=== PATIENT | male | born 1940 | race Caucasian/White ===

== ENCOUNTER → 2016-08-25 | Outpatient (CLI) | payer MEDICARE, OTHER ==
[2016-08-25 07:17] LABS: CH 30.4; CHCM 33.5; HDW 2.56; HGB 15.3 gm/dL (13.0-17.5); MCH 30.5 pg (25.0-35.0); MCHC 33.3 g/dL (31.0-37.0); MCV 91.3 fL (80.0-100.0); Mean Platelet Volume 7.7; RBC 5.03 m/uL (4.30-5.90); RDW 13.5 % (11.5-15.5); WBC 7.5 k/uL (3.8-10.6)
[2016-08-25 07:32] LABS: Anion Gap 13 mmol/L; Blood Urea Nitrogen 18 mg/dL (9-20); Calcium 9.4 mg/dL (8.4-10.2); Carbon Dioxide 27 mmol/L (22-30); Chloride 103 mmol/L (98-107); Cholesterol 152 mg/dL (<200); Glucose 102 mg/dL (74-99); HDL Cholesterol 55 mg/dL (40-60); Non-African American GFR(MDRD) >60 (>60 ml/min/1.73 sqM); Potassium 4.4 mmol/L (3.5-5.1); Sodium 143 mmol/L (137-145); Triglycerides 124 mg/dL (<150)
[2016-08-25 08:40] LABS: Appearance,Urine Clear (Clear); Bilirubin,Urine Negative (Negative); Glucose,Urine (UA) Negative (Negative); Ketones,Urine Negative (Negative); Leukocyte Esterase,Urine Negative (Negative); Nitrite,Urine Negative (Negative); Protein,Urine Negative (Negative); Specific Gravity,Urine 1.011 (1.001-1.035); UA Billing (MACRO vs. MICRO) CHEM; Urobilinogen,Urine <2.0 mg/dL (<2.0)
== END | disposition home or self-care (01) ==
LOC: LABWHC1 06:39
PROVIDERS: ATTEND Internal Medicine
DX: Z00.01 Encounter for general adult medical examination with abnormal findings (principal); I11.9 Hypertensive heart disease without heart failure; E78.2 Mixed hyperlipidemia; N40.1 Benign prostatic hyperplasia with lower urinary tract symptoms; R35.0 Frequency of micturition
CPT/HCPCS: 36415; 80048; 80061; 81003; 85027

== ENCOUNTER → 2017-05-16 | Outpatient (CLI) | payer MEDICARE, OTHER ==
[2017-05-16 10:47] LABS: CH 30.7; HCT 43.4 % (39.0-53.0); HDW 2.56; HGB 14.5 gm/dL (13.0-17.5); MCH 31.3 pg (25.0-35.0); MCHC 33.4 g/dL (31.0-37.0); MCV 93.6 fL (80.0-100.0); Mean Platelet Volume 7.2; RBC 4.63 m/uL (4.30-5.90); RDW 13.6 % (11.5-15.5); WBC 8.8 k/uL (3.8-10.6)
[2017-05-16 11:10] LABS: Calcium 9.3 mg/dL (8.4-10.2); Potassium 4.6 mmol/L (3.5-5.1); Total Bilirubin 0.7 mg/dL (0.2-1.3)
[2017-05-16 11:13] LABS: Appearance,Urine Clear (Clear); Bacteria,Urine Rare /hpf; Bilirubin,Urine Negative (Negative); Glucose,Urine (UA) Negative (Negative); Ketones,Urine Negative (Negative); Leukocyte Esterase,Urine Negative (Negative); Mucus,Urine Rare /hpf; Nitrite,Urine Negative (Negative); Particle Count 486; Protein,Urine Trace (Negative); RBC,Urine 11 /hpf (0-5); Specific Gravity,Urine 1.016 (1.001-1.035); UA Billing (MACRO vs. MICRO) MICRO; Urobilinogen,Urine <2.0 mg/dL (<2.0)
--- NOTE | 2017-05-16 11:24 | XR ---
EXAMINATION TYPE: XR lumbosacral spine min 4V DATE OF EXAM: 05/16/2017 CLINICAL HISTORY: pain COMPARISON: NONE TECHNIQUE: Frontal, lateral, and oblique images of the lumbar spine are obtained. FINDINGS: There are 5 lumbar type vertebral bodies identified. The lumbar spine shows satisfactory alignment without evidence of acute fracture or dislocation. Vertebral body heights are within normal limits. Sever multi level degenerative disc disease and spondylosis. The overlying soft tissue boris ears unremarkable. IMPRESSION: No acute fracture or dislocation is seen in the lumbar spine.ICD 10 NO FRACTURE, INITIAL EVALUATION
[2017-05-16 11:37] LABS: Prostate Specific Antigen 0.82 ng/mL (0.00-4.00)
== END | disposition home or self-care (01) ==
LOC: LABWHC1 10:09
PROVIDERS: ATTEND Internal Medicine
DX: M54.5 Low back pain (principal); N40.1 Benign prostatic hyperplasia with lower urinary tract symptoms; I11.9 Hypertensive heart disease without heart failure; E78.2 Mixed hyperlipidemia
CPT/HCPCS: 36415; 72110; 80053; 81001; 84153; 85027

== ENCOUNTER 2017-05-17 11:06 | Emergency (ER) | payer MEDICARE, OTHER ==
[2017-05-17] MEDS ORDERED: ONDANSETRON 4 MG/2 ML VIAL IVP STA ×2 (11:33→12:41)
[2017-05-17] MEDS ORDERED: SODIUM CHLORIDE 0.9% 500 ML IV STA (11:33)
[2017-05-17] MEDS ORDERED: HYDROmorphone 1 MG/ML 1 ML SYRINGE IVP STA ×2 (11:34→12:41)
[2017-05-17 12:07] LABS: Basophils % (A) 0 %; CHCM 33.8; Eosinophils # (A) 0.1 k/uL (0-0.7); Eosinophils % (A) 1 %; HCT 43.2 % (39.0-53.0); HDW 2.54; HGB 14.8 gm/dL (13.0-17.5); Luc # (Auto) 0.28; Luc % (Auto) 2; Lymphocytes # (A) 1.1 k/uL (1.0-4.8); Lymphocytes % (A) 9 %; MCH 31.5 pg (25.0-35.0); MCHC 34.2 g/dL (31.0-37.0); Mean Platelet Volume 7.3; Monocytes # (A) 0.8 k/uL (0-1.0); Monocytes % (A) 7 %; Neutrophils # (A) 9.4 k/uL (1.3-7.7); Neutrophils % (A) 80 %; RDW 13.4 % (11.5-15.5); WBC 11.8 k/uL (3.8-10.6); WBC (Perox) 12.06
[2017-05-17 12:15] LABS: ALT 29 U/L (21-72); AST 25 U/L (17-59); Alkaline Phosphatase 97 U/L (38-126); Anion Gap 13 mmol/L; Blood Urea Nitrogen 21 mg/dL (9-20); Calcium 9.5 mg/dL (8.4-10.2); Carbon Dioxide 23 mmol/L (22-30); Chloride 101 mmol/L (98-107); Glucose 98 mg/dL (74-99); Non-African American GFR(MDRD) 52 (>60 ml/min/1.73 sqM); Potassium 4.4 mmol/L (3.5-5.1); Sodium 137 mmol/L (137-145); Total Bilirubin 0.7 mg/dL (0.2-1.3); Total Protein 7.2 g/dL (6.3-8.2)
--- NOTE | 2017-05-17 12:23 | XR ---
EXAMINATION TYPE: XR KUB DATE OF EXAM: 05/17/2017 12:18 PM CLINICAL HISTORY: History of kidney stones with left-sided pain. TECHNIQUE: Two Upright KUB images of the abdomen are obtained. COMPARISON: Abdominal x-ray March 22, 2013. FINDINGS: Scattered gas is seen in non-distended small bowel loops. Gas and fecal material is seen in non-distended colon. Some vascular calcification in the pelvis extending into both groins is redemon strated. No pneumoperitoneum is identified. There is slight scoliotic curvature with multilevel spurr ing throughout the thoracolumbar spine. There is multilevel disc space narrowing and vacuum disc phen omenon in the lumbar spine redemonstrated. IMPRESSION: No definite nephrolithiasis. No significant change from prior.
[2017-05-17 12:36] LABS: Appearance,Urine Clear (Clear); Bilirubin,Urine Negative (Negative); Glucose,Urine (UA) Negative (Negative); Ketones,Urine Negative (Negative); Leukocyte Esterase,Urine Negative (Negative); Nitrite,Urine Negative (Negative); PH, Urine 6.5 (5.0-8.0); Particle Count 127; Protein,Urine Negative (Negative); RBC,Urine <1 /hpf (0-5); Specific Gravity,Urine 1.004 (1.001-1.035); UA Billing (MACRO vs. MICRO) MICRO; Urobilinogen,Urine <2.0 mg/dL (<2.0); WBC,Urine <1 /hpf (0-5)
--- NOTE | 2017-05-17 12:49 | ED ---
General Adult HPI - General Chief complaint: Abdominal Pain Stated complaint: Poss Kidney Stone, Abd Pain Time Seen by Provider: 05/17/17 11:17 Source: patient, RN notes reviewed Mode of arrival: ambulatory Limitations: no limitations - History of Present Illness Initial comments: This is a 69-year-old male who presents to the emergency Department today with chief complaint of left-sided abdominal pain. He was seen yesterday by his primary care provider who ran basic labs and lumbar x-ray. Renal studies were slightly elevated with BUN of 21 and Cr of 1.4, but all other studies were unremarkable. He was sent home with recommendation to take Tylenol as needed for pain and dexamethasone. Patient states he woke up this morning and felt well for a little while, then the pain returned. He states the pain is in his left flank with radiation to left thigh. He states the pain is intermittent, increasing in intensity every few minutes. He reports this pain feels the same as his previous history of kidney stone. He reports the pain gets so severe that he feels nauseous.Denies fever, chills, chest pain, shortness of breath, vomiting, dysuria, hematuria, numbess, tingling, headache or vision changes. - Related Data Home Medications Medication Instructions Recorded Confirmed Aspirin 81 mg PO DAILY 02/11/14 05/17/17 Atorvastatin Calcium [Lipitor] 10 mg PO MOWEFR 02/11/14 05/17/17 Esomeprazole Magnesium [NexIUM] 40 mg PO HS 02/11/14 05/17/17 Fosinopril [Monopril] 20 mg PO HS 02/11/14 05/17/17 Latanoprost Ophth [Xalatan 0.005%] 1 drop BOTH EYES HS 02/11/14 05/17/17 Sertraline [Zoloft] 150 mg PO HS 02/11/14 05/17/17 Tamsulosin HCl [Flomax] 0.4 mg PO HS 02/11/14 05/17/17 amLODIPine BESYLATE [Norvasc] 5 mg PO HS 02/11/14 05/17/17 Acetaminophen Tab [Tylenol Tab] 650 mg PO BID PRN 05/17/17 05/17/17 Artificial Tears-Hypromellose 1 drops BOTH EYES QID 05/17/17 05/17/17 [Artificial Tear Drops] Dexamethasone See Taper PO DIRECTED 05/17/17 05/17/17 Previous Rx's Medication Instructions Recorded Hydrocodone/Acetaminophen [Ridgeway 1 tab PO Q4HR PRN #15 tab 05/17/17 5-325] Ketorolac [Toradol] 10 mg PO Q6HR #10 tab 05/17/17 Allergies Allergy/AdvReac Type Severity Reaction Status Date / Time No Known Allergies Allergy Verified 05/17/17 11:21 Review of Systems ROS Statement: Those systems with pertinent positive or pertinent negative responses have been documented in the HPI. ROS Other: All systems not noted in ROS Statement are negative. Past Medical History Past Medical History: Cancer, COPD, GERD/Reflux, Hearing Disorder / Deafness, Hyperlipidemia, Hypertension, Neurologic Disorder, Osteoarthritis (OA), Prostate Disorder Additional Past Medical History / Comment(s): PROSATE CA (2008) RADIATION [place]. HX OF TIA. 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 URINARY CALCULI. History of Any Multi-Drug Resistant Organisms: None Reported Past Surgical History: Adenoidectomy, Back Surgery, Joint Replacement, Orthopedic Surgery, Tonsillectomy Additional Past Surgical History / Comment(s): LITHOTRIPSY. BACK OR (1987 & 1997 ). BILATERAL REVERSE SOCKET OF SHOULDERS. Past Anesthesia/Blood Transfusion Reactions: No Reported Reaction Past Psychological History: Depression Smoking Status: Former smoker General Exam - General Exam Comments Initial Comments: General: Awake and alert, well-developed; appears to be uncomfortable and in pain. and daughter at bedside. HEENT: Head atraumatic, normocephalic. Pupils are equal, round and reactive to light. Extraocular movements intact. Neck: Supple. Normal ROM. No JVD. Trachea midline. Cardiovascular: Regular rate and rhythm. No murmurs, rubs or gallops. Pectus excavatum noted. Respiratory: Lungs clear to auscultation bilaterally. No wheezes, rales or rhonchi. Normal respiratory efffort with no use of accessory muscles. Abdomen: Soft, non-tender, non-distended. No rigidity, rebound or guarding. Normal bowel sounds in all 4 quadrants. Left-sided CVA tenderness. Musculoskeletal: Normal ROM, no tenderness. Pulses 2+ equal and palpable bilaterally. Skin: [place], warm and dry without rashes or lesions. Neurological: Alert and oriented x3. CN II-XII grossly intact. Speech is fluent and answers are appropriate. No focal neuro deficits. Psychiatric: Normal mood and affect. No overt signs of depression or anxiety noted. Limitations: no limitations Course Vital Signs 05/17/17 05/17/17 05/17/17 11:09 13:00 14:00 Temperature 97.3 F L Pulse Rate 72 65 63 Respiratory 18 16 18 Rate Blood Pressure 159/95 172/84 140/76 O2 Sat by Pulse 98 94 L 95 Oximetry - Reevaluation(s) Reevaluation #1: Patient complains that abdominal pain and nausea are returning and that the first dose of Dilaudid and Zofran were helpful. Will give additional doses at this time. KUB results show no nephrolithiasis. Awaiting CT scan and UA results. 05/17/17 12:49 Medical Decision Making - Medical Decision Making This is a 77-year-old male presented with left-sided abdominal pain. This case was discussed with attending physician, Dr. Sullivan. CT scan showed a 6 mm left mid ureter obstructing calculus with [id number] hydronephrosis. Patient will be discharged home with recommendation to follow up with urologist. Ridgeway and Toradol prescribed for pain management. Flomax was also going to be prescribed however patient states he has prescription at home. - Lab Data Result diagrams: 05/17/17 11:52 05/17/17 11:52 Lab Results 05/17/17 05/17/17 05/17/17 Range/Units 11:52 11:52 12:20 WBC 11.8 H (3.8-10.6) k/uL RBC 4.70 (4.30-5.90) m/uL Hgb 14.8 (13.0-17.5) gm/dL Hct 43.2 (39.0-53.0) % MCV 92.0 (80.0-100.0) fL MCH 31.5 (25.0-35.0) pg MCHC 34.2 (31.0-37.0) g/dL RDW 13.4 (11.5-15.5) % Plt Count 188 (150-450) k/uL Neutrophils % 80 % Lymphocytes % 9 % Monocytes % 7 % Eosinophils % 1 % Basophils % 0 % Neutrophils # 9.4 H (1.3-7.7) k/uL Lymphocytes # 1.1 (1.0-4.8) k/uL Monocytes # 0.8 (0-1.0) k/uL Eosinophils # 0.1 (0-0.7) k/uL Basophils # 0.0 (0-0.2) k/uL Sodium 137 (137-145) mmol/L Potassium 4.4 (3.5-5.1) mmol/L Chloride 101 (98-107) mmol/L Carbon Dioxide 23 (22-30) mmol/L Anion Gap 13 mmol/L BUN 21 H (9-20) mg/dL Creatinine 1.34 H (0.66-1.25) mg/dL Est GFR (MDRD) Af Amer >60 (>60 ml/min/1.73 sqM) Est GFR (MDRD) Non-Af 52 (>60 ml/min/1.73 sqM) Glucose 98 (74-99) mg/dL Calcium 9.5 (8.4-10.2) mg/dL Total Bilirubin 0.7 (0.2-1.3) mg/dL AST 25 (17-59) U/L ALT 29 (21-72) U/L Alkaline Phosphatase 97 (38-126) U/L Total Protein 7.2 (6.3-8.2) g/dL Albumin 4.1 (3.5-5.0) g/dL Urine Color Light Yellow Urine Appearance Clear (Clear) Urine pH 6.5 (5.0-8.0) Ur Specific [place] 1.004 (1.001-1.035) Urine Protein Negative (Negative) Urine Glucose (UA) Negative (Negative) Urine Ketones Negative (Negative) Urine Blood Small H (Negative) Urine Nitrite Negative (Negative) Urine Bilirubin Negative (Negative) Urine Urobilinogen <2.0 (<2.0) mg/dL Ur Leukocyte Esterase Negative (Negative) Urine RBC <1 (0-5) /hpf Urine WBC <1 (0-5) /hpf Disposition Clinical Impression: Left nephrolithiasis Disposition: HOME SELF-CARE Condition: Good Instructions: Kidney Stones (ED) Additional Instructions: Please take medications as prescribed. Please follow up with Dr. Leon, urologist tomorrow. Contact information provided. Please follow up with primary care provider within 1-2 days. Okay to discontinue steroids. Return to ED if symptoms should worsen or any concerns arise. Prescriptions: Hydrocodone/Acetaminophen [[place]way 5-325] 1 tab PO Q4HR PRN #15 tab PRN Reason: Pain Ketorolac [Toradol] 10 mg PO Q6HR #10 tab Referrals: Masoud Dey MD [Primary Care Provider] - 1-2 days Robert Leon MD [STAFF PHYSICIAN] - 1-2 days Time of Disposition: 14:30
--- NOTE | 2017-05-17 13:57 | CT ---
EXAMINATION TYPE: CT abdomen pelvis wo con DATE OF EXAM: 05/17/2017 HISTORY: Lt flank to Lt groin pain CT DLP: 339.2 mGycm. Automated Exposure Control for Dose Reduction was Utilized. TECHNIQUE: CT scan of the abdomen and pelvis is performed without oral or IV contrast. COMPARISON: CT abdomen and pelvis March 13, 2013. Abdominal x-ray earlier today. FINDINGS: Within the limitations of a non-contrast study, the following observations are made. LUNG BASES: Dependent atelectasis in both lung bases is present. Coronary artery calcification is see n which is noted marker for coronary artery disease. LIVER/GB: No significant abnormality is appreciated. PANCREAS: No significant abnormality is seen. SPLEEN: No significant abnormality is seen. ADRENALS: No significant abnormality is seen. KIDNEYS: No right-sided renal calculi or hydronephrosis. There is obstructing 6 mm calculus in the mi d left ureter on axial image 84 and coronal image 49 causing asymmetric mild to moderate left-sided p yelocaliectasis and proximal hydroureter and mild to moderate left-sided perinephric fat stranding, l atter likely due to obstructing calculus, infection is not excluded. In retrospect calculus still was not well seen on earlier abdominal x-ray. No intraluminal calculus in the bladder is seen. BOWEL: Some diverticula are seen in the sigmoid colon. There is no CT evidence for acute diverticulit is. There is some redundancy of the sigmoid colon. Some fecal prominence in the right colon. Terminal ileum is felt within normal limits and axial image 52. There are small bowel feces sign inferior to this however noted. This bowel is slightly prominent but not abnormally dilated. No suspicious greate r than 3 cm small bowel dilatation is seen. Finding is consistent with delayed passage of ingested ma terial 2 colonic level. GENITAL ORGANS: No gross abnormality seen. LYMPH NODES: No greater than 1cm abdominal or pelvic lymph nodes are appreciated. OSSEOUS STRUCTURES: There is S-shaped scoliotic curvature with moderate to severe multilevel spurring and disc space narrowing. There is spurring with joint space loss at pubic symphysis. There is moder ate joint space loss in both hips. OTHER: There is fairly moderate calcified plaque in the pelvic branching arterial vessels. IMPRESSION: There is 6 mm left mid ureter calculus causing mild to moderate left-sided hydronephrosis .
[2017-05-17 14:19] VITALS: PULSE 63
[2017-05-17 14:38] VITALS: BP 166/83; RESP 14; TEMP 97.2
== END 2017-05-17 14:46 | disposition home or self-care (01) ==
LOC: EC 11:06
DX: N13.2 Hydronephrosis with renal and ureteral calculous obstruction (principal); K21.9 Gastro-esophageal reflux disease without esophagitis; E78.5 Hyperlipidemia, unspecified; I10 Essential (primary) hypertension; F32.9 Major depressive disorder, single episode, unspecified; Z85.46 Personal history of malignant neoplasm of prostate; Z86.73 Personal history of transient ischemic attack (TIA), and cerebral infarction without residual deficits; Z87.891 Personal history of nicotine dependence; Z79.51 Long term (current) use of inhaled steroids; Z79.82 Long term (current) use of aspirin; Z79.899 Other long term (current) drug therapy
CPT/HCPCS: 99284 ×2; 96374 ×2; 96375 ×2; 96376 ×3; 96361 ×2; 36415; 80053; 85025; 81001; 87086; 74000; 74176; J2405; J1170

== ENCOUNTER → 2017-09-08 | Outpatient (CLI) | payer MEDICARE, OTHER ==
[2017-09-08 07:21] LABS: HCT 44.5 % (39.0-53.0); HGB 14.6 gm/dL (13.0-17.5); MCH 29.6 pg (25.0-35.0); MCHC 32.7 g/dL (31.0-37.0); MCV 90.4 fL (80.0-100.0); Mean Platelet Volume 7.8; Platelet Count 193 k/uL (150-450); RBC 4.93 m/uL (4.30-5.90); RDW 14.7 % (11.5-15.5); WBC 7.7 k/uL (3.8-10.6)
[2017-09-08 07:52] LABS: ALT 35 U/L (21-72); AST 33 U/L (17-59); Albumin 4.3 g/dL (3.5-5.0); Alkaline Phosphatase 93 U/L (38-126); Anion Gap 11 mmol/L; Blood Urea Nitrogen 20 mg/dL (9-20); Calcium 9.6 mg/dL (8.4-10.2); Carbon Dioxide 28 mmol/L (22-30); Chloride 102 mmol/L (98-107); Cholesterol 146 mg/dL (<200); Glucose 101 mg/dL (74-99); HDL Cholesterol 58 mg/dL (40-60); LDL Cholesterol,Calculated 64 mg/dL (0-99); Potassium 4.5 mmol/L (3.5-5.1); Sodium 141 mmol/L (137-145); Total Bilirubin 0.5 mg/dL (0.2-1.3); Total Protein 7.3 g/dL (6.3-8.2); Triglycerides 122 mg/dL (<150)
== END | disposition home or self-care (01) ==
LOC: LABWHC1 06:40
PROVIDERS: ATTEND Internal Medicine
DX: Z00.01 Encounter for general adult medical examination with abnormal findings (principal); I11.9 Hypertensive heart disease without heart failure; E78.2 Mixed hyperlipidemia; K21.0 Gastro-esophageal reflux disease with esophagitis
CPT/HCPCS: 36415; 80053; 80061; 84439; 84443; 85027

== ENCOUNTER 2018-08-28 15:59 | Emergency (ER) | payer MEDICARE, OTHER ==
[2018-08-28 16:14] VITALS: RESP 18; TEMP 98.3
--- NOTE | 2018-08-28 17:17 | ED ---
General Adult HPI - General Chief complaint: Fall Stated complaint: Fall Time Seen by Provider: 08/28/18 17:10 Source: patient, RN notes reviewed, old records reviewed Mode of arrival: wheelchair Limitations: no limitations - History of Present Illness Initial comments: This is a 78-year-old male the ER for eversion of left hip pain status post fall. Did not his had no other complaints of injury or trauma. Patient states he is able to ambulate after event, he was sitting on a ladder and the ladder did fall he did fall to the lateral landing on his left hip. Patient states that the pain is now resolved. No other injury noted -: minutes(s) Location: left, lower extremity Radiation: non-radiation Severity scale (1-10): 3 Quality: aching Consistency: now resolved Worsens with: none Associated Symptoms: denies other symptoms Treatments Prior to Arrival: none - Related Data Home Medications Medication Instructions Recorded Confirmed Atorvastatin Calcium [Lipitor] 10 mg PO MOWEFR 02/11/14 08/28/18 Esomeprazole Magnesium [NexIUM] 40 mg PO HS 02/11/14 08/28/18 Fosinopril [Monopril] 20 mg PO HS 02/11/14 08/28/18 Latanoprost Ophth [Xalatan 0.005%] 1 drop BOTH EYES HS 02/11/14 08/28/18 Sertraline [Zoloft] 150 mg PO W/SUPPER 02/11/14 08/28/18 Tamsulosin HCl [Flomax] 0.4 mg PO HS 02/11/14 08/28/18 amLODIPine BESYLATE [Norvasc] 5 mg PO HS 02/11/14 08/28/18 Artificial Tears-Hypromellose 1 drops BOTH EYES QID 05/17/17 08/28/18 [Artificial Tear Drops] Ibuprofen [Motrin Ib] 400 mg PO DAILY 08/28/18 08/28/18 Allergies Allergy/AdvReac Type Severity Reaction Status Date / Time No Known Allergies Allergy Verified 08/28/18 16:53 Review of Systems ROS Statement: Those systems with pertinent positive or pertinent negative responses have been documented in the HPI. ROS Other: All systems not noted in ROS Statement are negative. Past Medical History Past Medical History: Cancer, COPD, GERD/Reflux, Hearing Disorder / Deafness, Hyperlipidemia, Hypertension, Neurologic Disorder, Osteoarthritis (OA), Prostate Disorder Additional Past Medical History / Comment(s): PROSATE CA (2009) RADIATION [place]. HX OF TIA. 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 URINARY CALCULI. History of Any Multi-Drug Resistant Organisms: None Reported Past Surgical History: Adenoidectomy, Back Surgery, Joint Replacement, Orthopedic Surgery, Tonsillectomy Additional Past Surgical History / Comment(s): LITHOTRIPSY. BACK OR (1987 & 1997 ). BILATERAL REVERSE SOCKET OF SHOULDERS. Past Anesthesia/Blood Transfusion Reactions: No Reported Reaction Past Psychological History: Depression Smoking Status: Former smoker Past Alcohol Use History: None Reported Past Drug Use History: None Reported General Exam Limitations: no limitations General appearance: alert, in no apparent distress Head exam: Present: atraumatic, normocephalic, normal inspection Eye exam: Present: normal appearance, PERRL, EOMI. Absent: scleral icterus, conjunctival injection, periorbital swelling ENT exam: Present: normal exam, mucous membranes moist Neck exam: Present: normal inspection. Absent: tenderness, meningismus, lymphadenopathy Respiratory exam: Present: normal lung sounds bilaterally. Absent: respiratory distress, wheezes, rales, rhonchi, stridor Cardiovascular Exam: Present: regular rate, normal rhythm, normal heart sounds. Absent: systolic murmur, diastolic murmur, rubs, gallop, clicks GI/Abdominal exam: Present: soft, normal bowel sounds. Absent: distended, tenderness, guarding, rebound, rigid Extremities exam: Present: normal inspection, full ROM, normal capillary refill. Absent: tenderness, pedal edema, joint swelling, calf tenderness Back exam: Present: normal inspection Neurological exam: Present: alert, oriented X3, CN II-XII intact Psychiatric exam: Present: normal affect, normal mood Skin exam: Present: warm, dry, intact, normal color. Absent: rash Course Vital Signs 08/28/18 16:07 Temperature 98.3 F Pulse Rate 73 Respiratory 18 Rate Blood Pressure 148/78 O2 Sat by Pulse 92 L Oximetry - Reevaluation(s) Reevaluation #1: 08/28/18 18:51 Patient is able to ambulate without difficulty Medical Decision Making - Medical Decision Making 78 male fell gently from ladder, patient fell onto his left side he was able to ambulate after event but did have pain in his left hip. Patient has normal x- rays here in the ER is able to ambulate and can be discharged home - Radiology Data Radiology results: report reviewed (X-ray left hip pelvis and femur negative for traumatic injury), image reviewed Disposition Clinical Impression: Fall, Contusion of left hip Disposition: HOME SELF-CARE Condition: Good Instructions: Hip Pain (ED) Is patient prescribed a controlled substance at d/c from ED?: No Referrals: Masoud Dey MD [Primary Care Provider] - 1-2 days
--- NOTE | 2018-08-28 18:02 | XR ---
EXAMINATION TYPE: XR femur LT DATE OF EXAM: 08/28/2018 COMPARISON: NONE HISTORY: Left hip pain TECHNIQUE: 4 views FINDINGS: There is some spurring of the patella. There is spurring at the acetabulum. There is hypert rophic degenerative changes in the knee joint in the medial joint space with spurring of the femoral and tibial condyles. I see no fracture nor dislocation. There is calcification of the menisci at the knee. IMPRESSION: Osteoarthritis. No fracture seen.
--- NOTE | 2018-08-28 18:03 | XR ---
EXAMINATION TYPE: XR Hip LT and AP Pelvis DATE OF EXAM: 08/28/2018 COMPARISON: NONE HISTORY: Hip pain TECHNIQUE: A single AP view of the pelvis is obtained. Two views of the left hip are obtained. FINDINGS: The pelvic ring is intact. The proximal left femur and hip joint are intact. There is minor acetabular spurring. There is vascular calcification. Sacroiliac joints are intact. IMPRESSION: No acute abnormality of the pelvis and left hip.
[2018-08-28 18:59] VITALS: BP 114/98; PULSE 78
== END 2018-08-28 18:59 | disposition home or self-care (01) ==
LOC: EC 15:59
DX: S70.02XA Contusion of left hip, initial encounter (principal); J44.9 Chronic obstructive pulmonary disease, unspecified; K21.9 Gastro-esophageal reflux disease without esophagitis; H91.90 Unspecified hearing loss, unspecified ear; E78.5 Hyperlipidemia, unspecified; I10 Essential (primary) hypertension; M19.90 Unspecified osteoarthritis, unspecified site; F32.9 Major depressive disorder, single episode, unspecified; N42.9 Disorder of prostate, unspecified; Z85.46 Personal history of malignant neoplasm of prostate; Z86.73 Personal history of transient ischemic attack (TIA), and cerebral infarction without residual deficits; Z87.891 Personal history of nicotine dependence; Z96.611 Presence of right artificial shoulder joint; Z96.612 Presence of left artificial shoulder joint; Z98.890 Other specified postprocedural states; Z79.1 Long term (current) use of non-steroidal anti-inflammatories (NSAID); Z79.899 Other long term (current) drug therapy; W11.XXXA Fall on and from ladder, initial encounter; Y92.89 Other specified places as the place of occurrence of the external cause; Y93.89 Activity, other specified
CPT/HCPCS: 73502; 99283

== ENCOUNTER 2020-12-11 08:11 | Inpatient (IN) | payer MEDICARE ==
[2020-12-11] MEDS ORDERED: ASPIRIN 81 MG PO STA (08:34)
[2020-12-11] MEDS ORDERED: HEPARIN SODIUM 1,000 UN/ML (10ML VL) IV STA (08:34)
[2020-12-11] MEDS ORDERED: HEPARIN SODIUM 1,000 UN/ML (10ML VL) IV ONE (08:34)
[2020-12-11] MEDS ORDERED: ATORVASTATIN 80 MG TAB PO STA (08:35)
[2020-12-11] MEDS ORDERED: SODIUM CHLORIDE 0.9% 1,000 ML IV STA (08:36)
[2020-12-11] MEDS ORDERED: LIDOCAINE 1% INJ 10MG/ML (20 ML MDV) ONE (08:36)
[2020-12-11] MEDS ORDERED: VERAPAMIL 2.5 MG/ML 2 ML AMP ONE (08:36)
[2020-12-11] MEDS ORDERED: fentaNYL (PF) 50 MCG/ML 2 ML AMP ONE (08:37)
[2020-12-11] MEDS ORDERED: NALOXONE 0.4 MG/ML 1 ML VIAL IV PRN (08:37)
[2020-12-11] MEDS ORDERED: HEPARIN SODIUM 1,000 UN/ML (10ML VL) ONE (08:37)
--- NOTE | 2020-12-11 08:37 | ED ---
General Adult HPI - General Chief complaint: Chest Pain Stated complaint: chest & body pain/dehydration Time Seen by Provider: 12/11/20 08:17 Source: patient, family Mode of arrival: ambulatory Limitations: no limitations - History of Present Illness Initial comments: Dictation was produced using [employer] dictation software. please excuse any grammatical, word or spelling errors. This patient was cared for during a federal and state declared state of emergency secondary to Covid 19 Chief Complaint: 80-year-old male presents to the emergency department for chest pain History of Present Illness: And 80-year-old male presents to the emergency department for chest pain. Patient has been having on and off symptoms of chest pain for one week. Last week he had an episode that lasted for several minutes. It is associated with diaphoresis and radiation to the shoulders. Since then he's been having on and off chest symptoms. Denies any numbness and paresthesias to the arms and legs. He states that he has a pressure-like sensation to substernal area that radiates across his chest bilaterally. He is complete by his who is unsure of his comorbidities. She does report that he has well-controlled hypertension. Patient does have mild symptoms currently. The ROS documented in this emergency department record has been reviewed and confirmed by me. Those systems with pertinent positive or negative responses have been documented in the HPI. All other systems are other negative and/or noncontributory. PHYSICAL EXAM: General Impression: Alert and oriented x3, not in acute distress HEENT: Normocephalic atraumatic, extra-ocular movements intact, pupils equal and reactive to light bilaterally, mucous membranes moist. Cardiovascular: Heart regular rate and rhythm Chest: Able to complete full sentences, no retractions, no tachypnea Abdomen: abdomen soft, non-tender, non-distended, no organomegaly Musculoskeletal: Pulses present and equal in all extremities, no peripheral edema Motor: no focal deficits noted Neurological: CN II-XII grossly intact, no focal motor or sensory deficits noted Skin: Intact with no visualized rashes Psych: Normal affect and mood ED course: 80-year-old male presents emergency department for chest pain. All signs upon arrival shows heart rate 55, blood pressure 94/51. EKG shows inferior wall ST segment elevation OR. Patient's symptomatology does not suggest acute aortic dissection. He has equal pulses in all extremities. code STEMI was paged. Patient is given aspirin and started on heparin. Patient be admitted to [facility]. Case discussed with Dr. Pollock. EKG interpretation: Ventricular rate 62, QRS 78, QTC 493. No MT prolongation, no QTC prolongation, ST elevations in inferior leads with Q waves. EKG consistent with ST segment elevation OR. - Related Data Home Medications Medication Instructions Recorded Confirmed Atorvastatin Calcium [Lipitor] 10 mg PO MOWEFR 02/11/14 08/28/18 Esomeprazole Magnesium [NexIUM] 40 mg PO HS 02/11/14 08/28/18 Fosinopril [Monopril] 20 mg PO HS 02/11/14 08/28/18 Latanoprost Ophth [Xalatan 0.005%] 1 drop BOTH EYES HS 02/11/14 08/28/18 Sertraline [Zoloft] 150 mg PO W/SUPPER 02/11/14 08/28/18 Tamsulosin HCl [Flomax] 0.4 mg PO HS 02/11/14 08/28/18 amLODIPine BESYLATE [Norvasc] 5 mg PO HS 02/11/14 08/28/18 Artificial Tears-Hypromellose 1 drops BOTH EYES QID 05/17/17 08/28/18 [Artificial Tear Drops] Ibuprofen [Motrin Ib] 400 mg PO DAILY 08/28/18 08/28/18 Allergies Allergy/AdvReac Type Severity Reaction Status Date / Time No Known Allergies Allergy Verified 12/11/20 08:22 Review of Systems ROS Statement: Those systems with pertinent positive or pertinent negative responses have been documented in the HPI. ROS Other: All systems not noted in ROS Statement are negative. Past Medical History Past Medical History: Cancer, COPD, GERD/Reflux, Hearing Disorder / Deafness, Hyperlipidemia, Hypertension, Neurologic Disorder, Osteoarthritis (OA), Prostate Disorder Additional Past Medical History / Comment(s): PROSATE CA (2008) RADIATION [place]. HX OF TIA. 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 URINARY CALCULI. History of Any Multi-Drug Resistant Organisms: None Reported Past Surgical History: Adenoidectomy, Back Surgery, Joint Replacement, Orthopedic Surgery, Tonsillectomy Additional Past Surgical History / Comment(s): LITHOTRIPSY. BACK OR (1987 & 1997). BILATERAL REVERSE SOCKET OF SHOULDERS. Past Anesthesia/Blood Transfusion Reactions: No Reported Reaction Past Psychological History: Depression Smoking Status: Never smoker Past Alcohol Use History: None Reported Past Drug Use History: None Reported General Exam Limitations: no limitations Course Vital Signs 12/11/20 08:12 Temperature 97.8 F Pulse Rate 55 L Respiratory 18 Rate Blood Pressure 94/51 O2 Sat by Pulse 100 Oximetry Disposition Clinical Impression: STEMI (ST elevation myocardial infarction) Disposition: ADMITTED IP TO THIS HOSP Condition: Critical Referrals: Siria Carnes MD [Primary Care Provider] - 1-2 days Decision Time: 08:39
[2020-12-11 08:45] LABS: Basophils % (A) 0 %; Eosinophils % (A) 0 %; HCT 42.9 % (39.0-53.0); HGB 13.9 gm/dL (13.0-17.5); Lymphocytes # (A) 1.2 k/uL (1.0-4.8); Lymphocytes % (A) 7 %; MCH 30.5 pg (25.0-35.0); MCHC 32.3 g/dL (31.0-37.0); MCV 94.5 fL (80.0-100.0); Monocytes # (A) 1.5 k/uL (0-1.0); Monocytes % (A) 9 %; Neutrophils # (A) 14.1 k/uL (1.3-7.7); Neutrophils % (A) 82 %; Platelet Count 181 k/uL (150-450); RBC 4.54 m/uL (4.30-5.90); WBC 17.1 k/uL (3.8-10.6)
[2020-12-11] MEDS ORDERED: fentaNYL (PF) 50 MCG/ML 2 ML AMP IVP ONE (08:51)
[2020-12-11] MEDS ORDERED: IV FLUID CONTINUATION 300 ML IV ONE (08:51)
[2020-12-11] MEDS ORDERED: MIDAZOLAM 2 MG/2 ML VIAL IVP ONE (08:51)
[2020-12-11] MEDS ORDERED: LIDOCAINE 1% INJ 10MG/ML (20 ML MDV) SQ ONE (08:52)
[2020-12-11 08:53] LABS: Calcium 9.3 mg/dL (8.4-10.2); Potassium 3.8 mmol/L (3.5-5.1); Total Bilirubin 1.9 mg/dL (0.2-1.3)
--- NOTE | 2020-12-11 08:53 | XR ---
EXAMINATION TYPE: XR chest 1V portable DATE OF EXAM: 12/11/2020 CLINICAL HISTORY: Chest pain. TECHNIQUE: Single AP portable frontal upright view of the chest is obtained. COMPARISON: Chest x-ray March 17, 2016 FINDINGS: There is diminished inspiration on current study with some increased central markings and patchy bibasilar opacities. The cardiac silhouette size is upper limits of normal on current study. Metallic hardware from bilateral shoulder surgery redemonstrated. IMPRESSION: Mild central interstitial edema and bibasilar patchy atelectatic changes may be exaggerat ed by poor inspiration.
[2020-12-11 08:58] LABS: Partial Thromboplastin Time 23.8 sec (22.0-30.0); Prothrombin Time 10.4 sec (9.0-12.0)
[2020-12-11] MEDS ORDERED: NOREPINEPHRINE 4 MG in SODIUM CHLORIDE 0.9% 250 ML IV ONE (09:00)
[2020-12-11] MEDS ORDERED: TICAGRELOR 90 MG TAB ONE (09:06)
[2020-12-11] MEDS ORDERED: BIVALIRUDIN 250 MG in SODIUM CHLORIDE 0.9% 50 ML IV ONE (09:07)
[2020-12-11] MEDS ORDERED: BIVALIRUDIN BOLUS 250 MG/50 ML IV ONE (09:07)
--- NOTE | 2020-12-11 09:08 | P.CRDCN ---
History of Present Illness History of present illness: HISTORY OF PRESENTING ILLNESS This is a pleasant 80-year-old male past medical history significant for hypertension, dyslipidemia. He does not follow with a cs associate We have been asked to see in consultation for STEMI. Patient is seen in the emergency department. Patient slightly confused unable to give full description of chest pain. at bedside, information obtained from . 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 He states his chest pain actually started one week ago, however and since today had increased chest pain. Patient had associated diaphoresis, slight shortness of breath. Patient denies nausea. Pain appears with pressure-like. His states the patient does not have a history of an PA, stroke, diabetes, irregular rhythm. She states that he has been having increased confusion and is being worked up for dementia. She also noticed that he's been having tremors and may be having a work up outpatient for Parkinson's. EKG reveals atrial fibrillation, heart rate 62, ST elevation in the inferior leads, left axis deviation. No prior EKG to compare. Patient's current home cardiac medication include amlodipine 5 mg daily, and lisinopril 20 mg daily. unsure of patient's family cardiac history. She does state that his sisters did have a history of cardiac disease but she is unsure of the specifics. Chest x-ray revealed mild interstitial edema and bibasilar patchy atelectasis changes. Patient was given aspirin, started on heparin drip and was also given atorvastatin 80 mg. Patient was taken to school laboratory technician. REVIEW OF SYSTEMS At the time of my exam: Patient cannot give a full review of systems at this time. CONSTITUTIONAL: Denies fever or chills. Positive diaphoresis CARDIOVASCULAR: Positive chest pain, positive shortness of breath Denies orthopnea, PND or palpitations. RESPIRATORY: Denies cough. GASTROINTESTINAL: Denies abdominal pain, NEUROLOGIC: Denies numbness,headache PHYSICAL EXAMINATION Blood pressure blood pressure 94/51 heart rate 40s60s afebrile and maintaining oxygen saturation on room air CONSTITUTIONAL: No acute distress. HEENT: Head is normocephalic. CHEST EXAMINATION: Lungs are clear to auscultation. HEART EXAMINATION: Irregular Bradycardia rate and rhythm. S1, S2 heard. NEUROLOGIC EXAMINATION: Patient is awake, alert ASSESSMENT STEMI History of Hypertension Dyslipidemia PLAN Will will proceed with cardiac catheterization with possible PCI with Dr. Johnson. This was discussed with patient at bedside and at bedside, who agreed to the procedure. I have discussed the risks, benefits and alternative therapies for the above- mentioned procedure and for both sedation/analgesia as well as necessary blood product administration, if indicated, as they pertain to this patient. The patient has indicated understanding and acceptance of the risks and procedures discussed. Questions have been answered appropriately and he is agreeable to move forward with the above-stated procedure. Further recommendations to follow. Nurse Practitioner note has been reviewed, I agree with a documented findings and plan of care. Patient was seen and examined. Past Medical History Past Medical History: Cancer, COPD, GERD/Reflux, Hearing Disorder / Deafness, Hyperlipidemia, Hypertension, Neurologic Disorder, Osteoarthritis (OA), Prostate Disorder Additional Past Medical History / Comment(s): PROSATE CA (2008) RADIATION TX. HX OF TIA. 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 URINARY CALCULI. History of Any Multi-Drug Resistant Organisms: None Reported Past Surgical History: Adenoidectomy, Back Surgery, Joint Replacement, Orthopedic Surgery, Tonsillectomy Additional Past Surgical History / Comment(s): LITHOTRIPSY. BACK OR (1987 & 1997). BILATERAL REVERSE SOCKET OF SHOULDERS. Past Anesthesia/Blood Transfusion Reactions: No Reported Reaction Past Psychological History: Depression Smoking Status: Never smoker Past Alcohol Use History: None Reported Past Drug Use History: None Reported Medications and Allergies Home Medications Medication Instructions Recorded Confirmed Type Esomeprazole Magnesium [NexIUM] 40 mg PO DAILY 02/11/14 12/11/20 History Tamsulosin HCl [Flomax] 0.4 mg PO DAILY 02/11/14 12/11/20 History amLODIPine BESYLATE [Norvasc] 5 mg PO DAILY 02/11/14 12/11/20 History Ascorbic Acid [Vitamin C] 500 mg PO DAILY 12/11/20 12/11/20 History Dorzolamide HCl/Pf [Dorzolamide 2% 1 drop BOTH EYES BID 12/11/20 12/11/20 History Eye Drop] Fosinopril Sodium [Monopril] 20 mg PO DAILY 12/11/20 12/11/20 History Multivitamins, Thera [Multivitamin 1 tab PO DAILY 12/11/20 12/11/20 History (formulary)] Sertraline [Zoloft] 150 mg PO DAILY 12/11/20 12/11/20 History Timolol [Betimol 0.5% Ophth Soln] 1 drop LEFT EYE BID 12/11/20 12/11/20 History Vitamin B Complex 1 cap PO DAILY 12/11/20 12/11/20 History Allergies Allergy/AdvReac Type Severity Reaction Status Date / Time No Known Allergies Allergy Verified 12/11/20 08:22 Physical Exam Vitals: Vital Signs Temp Pulse Resp BP Pulse Ox 12/11/20 08:12 97.8 F 55 L 18 94/51 100 Intake and Output 12/10/20 12/11/20 12/11/20 22:59 06:59 14:59 Other: Weight 61.235 kg Results 12/11/20 08:30 12/11/20 08:30 Current Medications Generic Name Dose Route Start Last Admin Trade Name Freq PRN Reason Stop Dose Admin Heparin Sodium (Porcine) 4,000 unit 12/11/20 08:34 Heparin Sodium,Porcine 5,000 Unit/Ml 1 Ml Vial IV 12/11/20 08:35 ONCE STA Heparin Sodium/Sodium Chloride 250 mls @ 7.348 mls/hr 12/11/20 08:45 25,000 unit/ Sodium Chloride IV .Q24H АННА Protocol 12 UNITS/KG/HR Sodium Chloride 1,000 mls @ 999 mls/hr 12/11/20 08:36 Saline 0.9% IV 12/11/20 09:36 .Q1H1M STA Intake and Output 12/10/20 12/11/20 12/11/20 22:59 06:59 14:59 Other: Weight 61.235 kg Patient Weight 12/12/20 06:59 Weight 61.235 kg
[2020-12-11] MEDS ORDERED: TICAGRELOR 90 MG TAB PO ONE (09:10)
--- NOTE | 2020-12-11 09:17 | P.CARDCATH ---
Date of Procedure: 12/11/20 Preoperative Diagnosis: Inferior wall myocardial infarction Postoperative Diagnosis: Total occlusion of the mid RCA. Critical lesion involving the intermediate and also OM branch Procedure(s) Performed: Left heart catheterization, selective coronary arteriography without left ventriculography Description of Procedure: HISTORY: This is a 80-year-old gentleman with no significant past medical history who has been having chest pain off-and-on for the last 3 to 4 days. Finally he came to the hospital because of sustained chest pain and EKG showed evidence of inferior wall myocardial infarction. Patient is advised to have a cardiac catheterization with the intention of primary intervention CONSENT:I have discussed the risks, benefits and alternative therapies for the above-mentioned procedure and for both sedation/analgesia as well as necessary blood product administration, if indicated, as they pertain to this patient. The patient has indicated understanding and acceptance of the risks and procedures discussed. PROCEDURE: Patient was brought to the lab in a fasting state. Patient was given some IV sedation. The right groin is infiltrated with lidocaine and right femoral artery was entered using Seldinger technique. A 6-Chilean catheter was left in place and selective coronary arteriography was performed. Patient tolerated the procedure well. Patient is found to have total occlusion of the RCA and critical lesion in the circumflex. Patient went on to have stent placement of the RCA by Dr. Alcazar and No immediate complications were noted . Conscious Sedation: Versed 0.5 mg Fentanyl 25 g Duration 15minutes HEMODYNAMICS: Aortic pressure 100/60. Patient became hypotensive requiring small dose of Levophed. Could be secondary to vasovagal reaction or reaction to the medication SELECTIVE CORONARY RTERIOGRAPHY: LEFT MAIN: Normal in length and free of occlusive disease THE LEFT ANTERIOR DESCENDING CORONARY ARTERY: Normal in size and length. Free of any occlusive disease. THE LEFT CIRCUMFLEX AND IS CORONARY ARTERY: There is about 90% stenosis of the intermediate coronary artery. There is also another 90% stenosis of the second OM branch THE RIGHT CORONARY ARTERY:Totally occluded in the midportion LEFT VENTRICULOGRAPHY: Not performed FINAL IMPRESSION: Total occlusion of the RCA which is culprit vessel. Proceed with stent placement. Status stenting of the circumflex lesions PLAN: Stent placement of the RCA PROGNOSIS: guarded
[2020-12-11] MEDS ORDERED: IV FLUID CONTINUATION 1,000 ML IV ONE (09:19)
[2020-12-11] MEDS ORDERED: IOPAMIDOL-370 125ML BTL INJ ONE (09:26)
[2020-12-11] MEDS ORDERED: niCARdipine 25 MG/10 ML VIAL ONE (09:28)
[2020-12-11] MEDS: niCARdipine Syringe (1,000 mcg/10 mL) INTRACORON ONE ×3 (09:30→10:00)
[2020-12-11] MEDS ORDERED: IOPAMIDOL-370 100ML BTL INJ ONE ×2 (10:01→10:30)
[2020-12-11] MEDS ORDERED: ZOLPIDEM 5 MG TAB PO PRN (10:17)
[2020-12-11] MEDS ORDERED: ATROPINE SULFATE 0.1 MG/ML 10ML SYRINGE IV PRN (10:17)
[2020-12-11] MEDS ORDERED: MAG HYDROX/AL HYDROX/SIMETH 30 ML CUP PO PRN (10:17)
[2020-12-11] MEDS ORDERED: RX INFO: IV CONTRAST WAS GIVEN 1 EACH MISC MISCELLANE PRN (10:17)
[2020-12-11] MEDS ORDERED: NITROGLYCERIN SL TABS 0.4 MG TAB SUBLINGUAL PRN (10:17)
[2020-12-11] MEDS ORDERED: SODIUM CHLORIDE 0.9% 1,000 ML IV SCH (10:30)
--- NOTE | 2020-12-11 11:25 | PTCA ---
PERCUTANEOUSTRANS CORORONARY ANGIOGRAPHY Mr. Araujo is an 80-year-old male with history of hypertension who presented with acute chest discomfort. He was evaluated by Dr. Johnson and apparently he has been having discomfort for about 5 to 6 days on and off. On presentation, he had ST elevation inferiorly with troponin elevation at 16. Because of the persistent symptoms, he underwent cardiac catheterization by Dr. Johnson and was found to have a totally occluded mid right coronary artery. In view of that, recommendation was made regarding angioplasty and stenting, the procedure as well as the risks and the complications were discussed with the patient who is in full understanding and agreement. PROCEDURE: A 6-Martiniquais FR4 guiding catheter introduced in the system. After cannulating the right coronary ostium, a 0.014 balanced medium weight J-wire with the help of a straight microcatheter was used to cross the total occlusion and position distally. Following that, the microcatheter was removed. Following that, a 2.5 x 12 mm Trek balloon was advanced and multiple inflations maximum of 8 atmospheres were done. After removing the balloon, there was no evidence of antegrade flow with evidence to suggest no reflow phenomenon. At that time, an [place] thrombectomy catheter was introduced and one run was done without removal of any significant material. Following that, the catheter was removed and a 3.0 x 15 mm Trek balloon was advanced and multiple inflations at maximum of 8 atmospheres were done. Following that the balloon was removed and there was still no evidence of antegrade flow with no reflow appearance. At that point, an KO LP thrombectomy catheter was introduced and 2 runs were done with minimal antegrade flow noted. The patient received nicardipine intracoronary injection multiple times. Following that, a 3.0 x 23 mm Xience Marita stent was advanced, deployed and post- dilated to 16 atmospheres. After removing the balloon a 3.25 x 28 mm Xience Marita stent was advanced, positioned proximal to the first one and postdilated to 16 atmospheres. Following that, a 3.25 x 15 mm NC Trek balloon was advanced and inflations in both stents were done at maximum of 12 atmospheres. Following that, the balloon was removed and the KO LP thrombectomy catheter was introduced and another run was done. Following that and after appropriate wait, the balloon and the guidewire were withdrawn back in the guiding catheter. Images were obtained, repeated. Those images reveal stable successful angioplasty. Patient had a VICKEY-3 flow at the end the procedure and he was pain free. The catheter was removed and hemostasis was obtained with deployment of an Angio-Seal. Prior to removing the catheter, a 6-Martiniquais tight pigtail catheter was introduced in the left ventricle and left ventricular end- diastolic pressure was calculated. RESULTS: 1. Successful recanalization of an acutely occluded right coronary artery with reduction of stenosis from 100% to 0% with a VICKEY-3 flow and presentation consistent with no reflow phenomenon. 2. Left ventricular end-diastolic pressure 15-18 mmHg. RECOMMENDATION: Patient should be continued on aspirin, Brilinta, and statin. Depending on his blood pressure, beta noble and TERE inhibitor will be added. Of note, the patient was hypertensive on presentation requiring IV fluid in addition to norepinephrine. Depending on his progress, further recommendation will be made. His left ventricular end-diastolic pressure will be followed by echocardiography. Those findings and recommendation were discussed with the patient and his family and they are in full understanding and agreement. Duration of sedation is 60 minutes. MMODL / IJN: [id number] /
--- NOTE | 2020-12-11 11:31 | LTR ---
December 11, 2020 Re: Farhat Araujo Dear Dr. Carnes: I had the opportunity to performed coronary angioplasty on Mr. Araujo at [facility] on the 11 of December and a full copy of the procedure note will be forwarded to you. In brief, he was found to have a totally occluded right coronary artery and underwent stenting of that vessel with lutheran of the flow, but he had evidence of no reflow phenomenon. I am hopeful that this procedure will stabilize his status and depending on his progress, further recommendation will be made. Thank you again for allowing me the opportunity to participate in his care. Please feel free to call for any questions. Sincerely yours, Vega Alcazar MD MMROSSYL / SINDIN: [id number] /
--- NOTE | 2020-12-11 13:17 | P.HPIM ---
History of Present Illness H&P Date: 12/11/20 Chief Complaint: chest pain 80 year old man with history of hypertension, hyperlipidemia presented with chest pain. 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 The patient was predominantly in the anterior chest and radiated to his shoulders. Patient also had associated sweats and shortness of breath. Patient did not have any nausea, vomiting, fevers, chills, abdominal pain, dysuria, dyschezia, numbness/weakness. In the emergency room, EKG demonstrated atrial fibrillation with ST elevation in the inferior leads with left axis deviation and heart rate is 62. Patient was taken emergently to the Test Lead Application Testing, started on aspirin, heparin drip, atorvastatin. He was seen in the suture recovery unit status post left heart cath with a drug-eluting stent to the mid RCA. Telemetry demonstrates ongoing atrial fibrillation with associated bradycardia, with patient requiring Levophed drip to maintain blood pressure. Chest x-ray demonstrated mild interstitial edema, however, there was poor inspiratory effort. Review of Systems All Systems reviewed and pertinent positives and negatives noted in HPI, all other symptoms are negative Past Medical History Past Medical History: Cancer, COPD, GERD/Reflux, Hearing Disorder / Deafness, Hyperlipidemia, Hypertension, Neurologic Disorder, Osteoarthritis (OA), Prostate Disorder Additional Past Medical History / Comment(s): PROSATE CA (2008) RADIATION TX. HX OF TIA. 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 URINARY CALCULI. History of Any Multi-Drug Resistant Organisms: None Reported Past Surgical History: Adenoidectomy, Back Surgery, Joint Replacement, Orthopedic Surgery, Tonsillectomy Additional Past Surgical History / Comment(s): LITHOTRIPSY. BACK OR (1987 & 1997). BILATERAL REVERSE SOCKET OF SHOULDERS. Past Anesthesia/Blood Transfusion Reactions: No Reported Reaction Past Psychological History: Depression Smoking Status: Never smoker Past Alcohol Use History: None Reported Past Drug Use History: None Reported Medications and Allergies Home Medications Medication Instructions Recorded Confirmed Type Esomeprazole Magnesium [NexIUM] 40 mg PO DAILY 02/11/14 12/11/20 History Tamsulosin HCl [Flomax] 0.4 mg PO DAILY 02/11/14 12/11/20 History amLODIPine BESYLATE [Norvasc] 5 mg PO DAILY 02/11/14 12/11/20 History Ascorbic Acid [Vitamin C] 500 mg PO DAILY 12/11/20 12/11/20 History Dorzolamide HCl/Pf [Dorzolamide 2% 1 drop BOTH EYES BID 12/11/20 12/11/20 History Eye Drop] Fosinopril Sodium [Monopril] 20 mg PO DAILY 12/11/20 12/11/20 History Multivitamins, Thera [Multivitamin 1 tab PO DAILY 12/11/20 12/11/20 History (formulary)] Sertraline [Zoloft] 150 mg PO DAILY 12/11/20 12/11/20 History Timolol [Betimol 0.5% Ophth Soln] 1 drop LEFT EYE BID 12/11/20 12/11/20 History Vitamin B Complex 1 cap PO DAILY 12/11/20 12/11/20 History Allergies Allergy/AdvReac Type Severity Reaction Status Date / Time No Known Allergies Allergy Verified 12/11/20 08:22 Physical Exam Osteopathic Statement: *. No significant issues noted on an osteopathic structural exam other than those noted in the History and Physical/Consult. Vitals: Vital Signs Temp Pulse Pulse Resp BP BP Pulse Ox 12/11/20 12:15 56 L 12 114/60 99 12/11/20 12:00 54 L 12 107/59 98 12/11/20 11:45 51 L 12 116/59 98 12/11/20 11:30 54 L 12 98 12/11/20 11:15 54 L 12 86/50 98 12/11/20 11:00 58 L 12 126/58 99 12/11/20 10:45 58 L 12 133/60 98 12/11/20 10:30 12 115/59 93 L 12/11/20 08:47 53 L 18 82/53 92 L 12/11/20 08:12 97.8 F 55 L 18 94/51 100 Intake and Output 12/10/20 12/11/20 12/11/20 22:59 06:59 14:59 Intake Total 1120 Balance 1120 Intake: IV 1120 Other: Weight 61.235 kg Gen: awake, alert HEENT: normocephalic, atraumatic, good hearing acuity, moist mucous membranes Resp: good air exchange, breathing comfortably with no accessory muscle use, clear to auscultation bilaterally CVS: good distal perfusion x 4, regular rhythm, bradycardic GI: soft, NTTP, ND, appropriate bowel sounds : no SPT, no CVAT, will catheter not present MSK: no pitting edema, no clubbing Neuro: non-focal, moving all extremities Psych: cooperative, euthymic mood Results CBC & Chem 7: 12/11/20 08:30 12/11/20 08:30 Labs: Abnormal Lab Results - Last 24 Hours (Table) 12/11/20 12/11/20 12/11/20 Range/Units 08:30 08:30 08:30 WBC 17.1 H (3.8-10.6) k/uL Neutrophils # 14.1 H (1.3-7.7) k/uL Monocytes # 1.5 H (0-1.0) k/uL Sodium 136 L (137-145) mmol/L BUN 38 H (9-20) mg/dL Creatinine 1.66 H (0.66-1.25) mg/dL Glucose 147 H (74-99) mg/dL Total Bilirubin 1.9 H (0.2-1.3) mg/dL AST 85 H (17-59) U/L Troponin I 16.500 H* (0.000-0.034) ng/mL Assessment and Plan Assessment: STEMI Hypertension Hyperlipidemia -Admit to ICU, telemetry -Cardiology consult -Aspirin, Plavix, statin -Heparin drip -Hold beta noble given bradycardia -Echocardiogram, pending -Continue levophed drip as required -Pulmonary consultation given ICU status -Maintain pacing pads at bedside Patient is a full code DVT prophylaxis addressed with therapeutic anticoagulation is next of kin
[2020-12-11 14:02] LABS: T4, Free (Free Thyroxine) 1.42 ng/dL (0.78-2.19)
[2020-12-11] MEDS ORDERED: LIDOCAINE URO-JET JELLY 2% 5 ML KIT ONE (14:57)
[2020-12-11 15:45] LABS: Glucose,Whole Blood 120 mg/dL (75-99)
[2020-12-11] MEDS: SERTRALINE 50 MG TAB PO SCH (17:28)
[2020-12-11] MEDS: PANTOPRAZOLE 40 MG TABLET PO SCH (17:28)
[2020-12-11] MEDS: TAMSULOSIN 0.4 MG CAP.ER.24H PO SCH (17:28)
[2020-12-11] MEDS: SODIUM CHLORIDE 0.9% 1,000 ML IV SCH ×3 (17:29→20:46)
[2020-12-11] MEDS: HEPARIN SOD,PORK IN 0.45% NACL 25,000 UNIT in 0.45% NACL 1 250ML.BAG IV SCH (18:44)
[2020-12-11] MEDS: TICAGRELOR 90 MG TAB PO SCH (20:46)
[2020-12-11] MEDS: DORZOLAMIDE HCL 2% DROPS 10 ML BTL BOTH EYES SCH (20:46)
[2020-12-11] MEDS: ATORVASTATIN 80 MG TAB PO SCH (20:46)
[2020-12-11] MEDS: TIMOLOL 0.5% OPHTH DROPS 5 ML BTL LEFT EYE SCH (20:46)
[2020-12-12 05:28] LABS: Calcium 8.5 mg/dL (8.4-10.2); Potassium 3.7 mmol/L (3.5-5.1)
[2020-12-12] MEDS ORDERED: HEPARIN SODIUM,PORCINE 5,000 UNIT/ML 1 ML VIAL IV STA (05:42)
[2020-12-12] MEDS ORDERED: HEPARIN SODIUM 1,000 UN/ML (10ML VL) IV STA (05:57)
[2020-12-12] MEDS: TAMSULOSIN 0.4 MG CAP.ER.24H PO SCH (08:50)
[2020-12-12] MEDS: MULTIVITAMINS, THERA 1 EACH TAB PO SCH (08:50)
[2020-12-12] MEDS: ASCORBIC ACID 500 MG TAB PO SCH (08:50)
[2020-12-12] MEDS: PANTOPRAZOLE 40 MG TABLET PO SCH (08:51)
[2020-12-12] MEDS: ASPIRIN 81 MG PO SCH (08:51)
[2020-12-12] MEDS: DORZOLAMIDE HCL 2% DROPS 10 ML BTL BOTH EYES SCH ×2 (08:51→20:27)
[2020-12-12] MEDS: TICAGRELOR 90 MG TAB PO SCH ×2 (08:51→20:25)
[2020-12-12] MEDS: HEPARIN SOD,PORK IN 0.45% NACL 25,000 UNIT in 0.45% NACL 1 250ML.BAG IV SCH (08:57)
[2020-12-12] MEDS ORDERED: lisinopriL 20 MG TAB PO SCH (09:00)
[2020-12-12] MEDS ORDERED: amLODIPine 5 MG TAB PO SCH (09:00)
[2020-12-12] MEDS ORDERED: NON FORMULARY DRUG (Vitamin B Complex [Vitamin B Complex] 1 EACH Capsule) PO SCH (09:00)
[2020-12-12] MEDS: SERTRALINE 50 MG TAB PO SCH (09:59)
[2020-12-12] MEDS: TIMOLOL 0.5% OPHTH DROPS 5 ML BTL LEFT EYE SCH ×2 (09:59→20:27)
--- NOTE | 2020-12-12 10:55 | ECHOF ---
Referral Reason:mi MEASUREMENTS -------- HEIGHT: 162.6 cm WEIGHT: 71.7 kg BP: RVIDd: 3.1 cm (< 3.3) IVSd: 1.0 cm (0.6 - 1.1) LVIDd: 3.9 cm (3.9 - 5.3) LVPWd: 1.1 cm (0.6 - 1.1) IVSs: 1.6 cm LVIDs: 3.3 cm LVPWs: 1.2 cm Ao Diam: 3.6 cm (2.0 - 3.7) AV Cusp: 1.6 cm (1.5 - 2.6) MV EXCURSION: 19.783 mm (> 18.000) MV EF SLOPE: 55 mm/s (70 - 150) EPSS: 1.4 cm MV E Jordi: 0.45 m/s MV DecT: 255 ms MV A Jordi: 0.81 m/s MV E/A Ratio: 0.55 AV maxP.29 mmHg AV meanP.42 mmHg RAP: 5.00 mmHg RVSP: 16.62 mmHg FINDINGS -------- Atrial fibrillation. This was a technically difficult study with suboptimal views. This was a techncally difficult study with suboptimal views, , Lumason utilized for enhancement of images. The left ventricular size is normal. Left ventricular wall thickness is normal. Overall left vent ricular systolic function is mild-moderately impaired with, an EF between 40 - 45 %. Basal inferior LV wall motion is hypokinetic. Mid inferior LV wall motion is hypokinetic. Apical inferior LV wall motion is hypokinetic. The right ventricle is normal in size. The left atrial size is normal. The right atrial size is normal. There is mild aortic valve sclerosis. Peak/mean gradient across the Aortic Valve is 8.29mmHg / 4.42 mmHg. Mild mitral annular calcification present. Mild mitral regurgitation is present. The tricuspid valve appears structurally normal. Mild tricuspid regurgitation present. Right vent ricular systolic pressure is normal at < 35 mmHg. The pulmonic valve was not well visualized. The aortic root size is normal. There is no pericardial effusion. CONCLUSIONS -------- 1. Atrial fibrillation. 2. This was a technically difficult study with suboptimal views. 3. This was a techncally difficult study with suboptimal views, , Lumason utilized for enhancement of images. 4. Left ventricular wall thickness is normal. 5. Overall left ventricular systolic function is mild-moderately impaired with, an EF between 40 - 45 %. 6. Basal inferior LV wall motion is hypokinetic. 7. Mid inferior LV wall motion is hypokinetic. 8. Apical inferior LV wall motion is hypokinetic. 9. The left atrial size is normal. 10. There is mild aortic valve sclerosis. 11. Peak/mean gradient across the Aortic Valve is 8.29mmHg / 4.42mmHg. 12. Mild mitral regurgitation is present. 13. Mild tricuspid regurgitation present. 14. There is no pericardial effusion. CHEMISTRY ASSOCIATE: Marylou Spivey RDCS
[2020-12-12] MEDS ORDERED: HEPARIN SODIUM 1,000 UN/ML (10ML VL) IV PRN (12:52)
[2020-12-12 14:34] VITALS: BMI 27.3
--- NOTE | 2020-12-12 14:56 | P.PN ---
Subjective Progress Note Date: 12/12/20 Pt complaining of overall discomfort, and bloating, but denies chest pain, palps, presyncope at this time. Objective - Vital Signs Vital signs: Vital Signs Temp 97.9 F 12/12/20 13:52 Pulse 79 12/12/20 13:52 Resp 17 12/12/20 13:52 BP 124/62 12/12/20 13:52 Pulse Ox 95 12/12/20 13:52 Intake & Output 12/11/20 12/12/20 12/12/20 18:59 06:59 18:59 Intake Total 1820 1283.767 716.725 Output Total 150 510 475 Balance 1670 773.767 241.725 Weight 72 kg 72.2 kg 72.2 kg Intake: IV 1520 1200 360 Sodium Chloride 0.9% 1, 400 1200 360 000 ml @ 20 mls/hr IV . Q24H АННА Rx#:[id number] Intake, IV Titration 83.767 56.725 Amount Heparin Sod,Pork in 0.45% 83.767 56.725 NaCl 25,000 unit In 0.45 % NaCl 1 250ml.bag @ 16 UNITS/KG/HR 9.798 mls/hr IV .Q24H АННА Rx#: [id number] Oral 300 300 Output: Urine 150 510 475 Other: Voiding Method Urinal Urinal Urinal - Exam Gen: awake, alert HEENT: normocephalic, atraumatic, good hearing acuity, moist mucous membranes Resp: good air exchange, breathing comfortably with no accessory muscle use, clear to auscultation bilaterally CVS: good distal perfusion x 4, regular rhythm, bradycardic GI: soft, NTTP, ND, appropriate bowel sounds : no SPT, no CVAT, will catheter not present MSK: no pitting edema, no clubbing Neuro: non-focal, moving all extremities Psych: cooperative, euthymic mood - Labs CBC & Chem 7: 12/11/20 08:30 12/12/20 04:19 Labs: Abnormal Lab Results - Last 24 Hours (Table) 12/11/20 12/11/20 12/11/20 Range/Units 14:31 15:43 17:47 APTT (22.0-30.0) sec Sodium (137-145) mmol/L BUN (9-20) mg/dL Glucose (74-99) mg/dL POC Glucose (mg/dL) 120 H (75-99) mg/dL Troponin I 18.800 H* 19.000 H* (0.000-0.034) ng/mL 12/12/20 12/12/20 12/12/20 Range/Units 04:19 04:19 11:32 APTT 37.6 H 39.6 H (22.0-30.0) sec Sodium 134 L (137-145) mmol/L BUN 32 H (9-20) mg/dL Glucose 109 H (74-99) mg/dL POC Glucose (mg/dL) (75-99) mg/dL Troponin I (0.000-0.034) ng/mL 12/12/20 Range/Units 11:32 APTT (22.0-30.0) sec Sodium (137-145) mmol/L BUN (9-20) mg/dL Glucose (74-99) mg/dL POC Glucose (mg/dL) (75-99) mg/dL Troponin I 14.500 H* (0.000-0.034) ng/mL Assessment and Plan Assessment: STEMI Hypertension Hyperlipidemia Paroxysmal Atrial Fibrillation of new onset -Admit to ICU, telemetry -Cardiology consult, appreciate recs -Aspirin, Plavix, statin -Heparin drip --> NOAC on d/c -metoprolol 25mg BID added to start tonight -Echocardiogram = EF 40-45%, WMAs noted of inferior LV wall, RVSP < 35, -Continue levophed drip as required -Pulmonary consultation given ICU status -Maintain pacing pads at bedside Patient is a no code DVT prophylaxis addressed with therapeutic anticoagulation is next of kin
[2020-12-12] MEDS: SODIUM CHLORIDE 0.9% 1,000 ML IV SCH (16:24)
[2020-12-12] MEDS: ATORVASTATIN 80 MG TAB PO SCH (20:25)
[2020-12-12] MEDS: METOPROLOL TARTRATE 25 MG TAB PO SCH (20:25)
[2020-12-13] MEDS: HEPARIN SOD,PORK IN 0.45% NACL 25,000 UNIT in 0.45% NACL 1 250ML.BAG IV SCH (00:30)
[2020-12-13] MEDS: PANTOPRAZOLE 40 MG TABLET PO SCH (05:37)
[2020-12-13] MEDS: MULTIVITAMINS, THERA 1 EACH TAB PO SCH (08:26)
[2020-12-13] MEDS: TICAGRELOR 90 MG TAB PO SCH (08:27)
[2020-12-13] MEDS: SERTRALINE 50 MG TAB PO SCH (08:27)
[2020-12-13] MEDS: lisinopriL 10 MG TAB PO SCH (08:27)
[2020-12-13] MEDS: ASCORBIC ACID 500 MG TAB PO SCH (08:27)
[2020-12-13] MEDS: ASPIRIN 81 MG PO SCH (08:27)
[2020-12-13] MEDS: METOPROLOL TARTRATE 25 MG TAB PO SCH ×2 (08:27→19:49)
[2020-12-13] MEDS: TAMSULOSIN 0.4 MG CAP.ER.24H PO SCH (08:27)
[2020-12-13] MEDS ORDERED: CLOPIDOGREL 75 MG TAB PO STA (11:01)
[2020-12-13] MEDS: DORZOLAMIDE HCL 2% DROPS 10 ML BTL BOTH EYES SCH ×2 (11:04→19:50)
[2020-12-13] MEDS: TIMOLOL 0.5% OPHTH DROPS 5 ML BTL LEFT EYE SCH ×2 (11:04→19:50)
[2020-12-13] MEDS: APIXABAN 2.5 MG TABLET PO SCH ×2 (11:11→19:50)
--- NOTE | 2020-12-13 11:30 | P.PN ---
Subjective Progress Note Date: 12/13/20 He feels okay, no chest pain no abdominal pain, no nausea no vomiting no dizziness no shortness of breath. Up in chair, not in distress Objective - Vital Signs Vital signs: Vital Signs Temp 98.5 F 12/13/20 11:02 Pulse 69 12/13/20 11:02 Resp 18 12/13/20 11:02 BP 133/79 12/13/20 11:02 Pulse Ox 97 12/13/20 11:02 Intake & Output 12/12/20 12/13/20 12/13/20 18:59 06:59 18:59 Intake Total 956.725 109.508 200 Output Total 475 500 Balance 481.725 -390.492 200 Weight 72.2 kg 72.3 kg Intake: IV 360 Sodium Chloride 0.9% 1, 360 000 ml @ 20 mls/hr IV . Q24H АННА Rx#:[id number] Intake, IV Titration 56.725 109.508 Amount Heparin Sod,Pork in 0.45% 56.725 109.508 NaCl 25,000 unit In 0.45 % NaCl 1 250ml.bag @ 16 UNITS/KG/HR 9.798 mls/hr IV .Q24H АННА Rx#: [id number] Oral 540 200 Output: Urine 475 500 Other: Voiding Method Urinal Urinal Urinal # Voids 1 1 - Exam Constitutional: No acute distress Eyes: Anicteric sclerae, moist conjunctiva ENMT: NC/AT,Oropharynx clear, no erythema, exudates Neck:Supple, FROM, no masses, or JVD Lungs: Clear to auscultation, Clear to percussion, Normal respiratory effort, no accessory muscle use Cardiovascular: Heart regular in rate and rhythm, No murmurs, gallops, or rubs no peripheral edema Abdominal: Soft Nontender, nom distended, no guarding, no rebound or rigidity, Normoactive bowel sounds Skin: Normal temperature, tone, texture, turgor, No induration No subcutaneous nodules Extremities:No digital cyanosis No clubbing, Pedal pulses intact and symmetrical Radial pulses intact and symmetrical Normal gait and station, No calf tenderness Psychiatric: Alert and oriented to person, place and time, Appropriate affect Intact judgement Neuro: Muscles Strength 5/5 in all 4 extremities, Sensation to light touch grossly present throughout, Cranial nerves II-XII grossly intact. No focal sensory deficits - Labs CBC & Chem 7: 12/11/20 08:30 12/12/20 04:19 Labs: Abnormal Lab Results - Last 24 Hours (Table) 12/12/20 12/12/20 12/12/20 Range/Units 11:32 11:32 18:50 APTT 39.6 H 41.4 H (22.0-30.0) sec Troponin I 14.500 H* (0.000-0.034) ng/mL 12/13/20 Range/Units 02:26 APTT 43.4 H (22.0-30.0) sec Troponin I (0.000-0.034) ng/mL Assessment and Plan Plan: 1. STEMI: Status post stent placement, total occlusion of RCA. Cardiology following. Was on heparin drip, currently on adequate's. Continue aspirin, Lipitor Plavix lisinopril and metoprolol 2. Essential Hypertension: Stable, monitor 3. Hyperlipidemia: Continue statin 4. Paroxysmal Atrial Fibrillation of new onset: On adequate's and beta noble 5. Chronic systolic congestive heart failure-Echocardiogram = EF 40-45%, WMAs noted of inferior LV wall, RVSP < 35, 6. Hypotension: Requiring Levophed, resolved 7. GERD without esophagitis: Continue PPI 8. Leukocytosis: WBC 17,000 likely reactive, dated to monitor. Patient is a no code DVT prophylaxis: Eliquis Disposition: Pending clinical progression, home versus rehab in 1-2 days
--- NOTE | 2020-12-13 14:01 | P.PN ---
Subjective Progress Note Date: 12/13/20 HISTORY OF PRESENTING ILLNESS This is a pleasant 80-year-old male past medical history significant for hypertension, dyslipidemia. He does not follow with a sander setter We have been asked to see in consultation for STEMI. Patient is seen in the emergency department. Patient slightly confused unable to give full description of chest pain. at bedside, information obtained from . 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 He states his chest pain actually started one week ago, however and since today had increased chest pain. Patient had associated diaphoresis, slight shortness of breath. Patient denies nausea. Pain appears with pressure-like. His states the patient does not have a history of an NE, stroke, diabetes, irregular rhythm. She states that he has been having increased confusion and is being worked up for dementia. She also noticed that he's been having tremors and may be having a work up outpatient for Parkinson's. EKG reveals atrial fibrillation, heart rate 62, ST elevation in the inferior mary ds, left axis deviation. No prior EKG to compare. Patient's current home cardiac medication include amlodipine 5 mg daily, and lisinopril 20 mg daily. unsure of patient's family cardiac history. She does state that his sisters did have a history of cardiac disease but she is unsure of the s pecifics. Chest x-ray revealed mild interstitial edema and bibasilar patchy atelectasis changes. Patient was given aspirin, started on heparin drip and was also given atorvastatin 80 mg. Patient was taken to cheesemaking laborer. 12/13: Patient underwent heart catheterization with Dr. Johnson found to have total occluded mid right coronary artery and subsequently underwent PCI of the right coronary artery yesterday. Echocardiogram reveals EF of 40-45%, LV wall motion hypokinetic, mild aortic valve sclerosis, mild mitral regurgitation, mild tricuspid regurgitation. Patient has been afebrile, heart rate 68, blood pressure 129/60, pulse ox 93% on room air. Repeat blood work reveals BUN 32 and creatinine 1.07. Repeat blood work will be ordered for tomorrow PHYSICAL EXAMINATION CONSTITUTIONAL: No acute distress. HEENT: Head is normocephalic. CHEST EXAMINATION: Lungs are clear to auscultation. HEART EXAMINATION: Irregular rate and rhythm. S1, S2 heard. NEUROLOGIC EXAMINATION: Patient is awake, alert ASSESSMENT STEMI History of Hypertension Dyslipidemia New onset atrial fibrillation, paroxysmal atrial fibrillation PLAN Brilinta will be discontinued and patient will be transitioned to Plavix 300 mg 1 now followed by Plavix 75 mg daily Patient will be started on eliquis 2.5 mg twice daily, lining caser will follow up on cost of eliquis ($9.60/mo). Prescription has been sent to his pharmacy. Continue aspirin 81 mg daily, Lipitor 80 mg at bedtime, lisinopril 10 mg daily, Lopressor 25 mg twice daily Anticipate discharge home tomorrow Further recommendations to follow. Nurse Practitioner note has been reviewed, I agree with a documented findings and plan of care. Patient was seen and examined. Objective - Vital Signs Vital signs: Vital Signs Temp 98.5 F 12/13/20 11:02 Pulse 69 12/13/20 11:02 Resp 18 12/13/20 11:02 BP 133/79 12/13/20 11:02 Pulse Ox 97 12/13/20 11:02 Intake & Output 12/12/20 12/13/20 12/13/20 18:59 06:59 18:59 Intake Total 956.725 109.508 200 Output Total 475 500 Balance 481.725 -390.492 200 Weight 72.2 kg 72.3 kg Intake: IV 360 Sodium Chloride 0.9% 1, 360 000 ml @ 20 mls/hr IV . Q24H АННА Rx#:[id number] Intake, IV Titration 56.725 109.508 Amount Heparin Sod,Pork in 0.45% 56.725 109.508 NaCl 25,000 unit In 0.45 % NaCl 1 250ml.bag @ 16 UNITS/KG/HR 9.798 mls/hr IV .Q24H АННА Rx#: [id number] Oral 540 200 Output: Urine 475 500 Other: Voiding Method Urinal Urinal Urinal # Voids 1 1 - Labs CBC & Chem 7: 12/11/20 08:30 12/12/20 04:19 Labs: Abnormal Lab Results - Last 24 Hours (Table) 12/12/20 12/13/20 Range/Units 18:50 02:26 APTT 41.4 H 43.4 H (22.0-30.0) sec
[2020-12-13] MEDS: SODIUM CHLORIDE 0.9% 1,000 ML IV SCH (14:45)
--- NOTE | 2020-12-13 15:24 | P.PN ---
Subjective Progress Note Date: 12/12/20 This is a 80-year-old gentleman who was admitted to the hospital with inferior wall myocardial infarction. Patient also has significant lesions in the circumflex but mainly had total occlusion of the mid RCA. Patient had stent placement by Dr. Alcazar. Patient had heavy clot burden. Patient also had her niated fibrillation on admission and was hypotensive requiring Levophed. Patient however today, appears more stable. Denies any chest pain or shortness of breath. He didn't convert to sinus rhythm. His blood pressure is more stable. Off pressors. Patient is on IV heparin because of persistent atrial fibrillation. We'll continue current medical therapy. Get an echocardiogram. We'll plan to switch to Plavix from Brillinta and consider him on low-dose eliquis. It. Will transfer patient to telemetry unit Objective - Vital Signs Vital signs: Vital Signs Temp 98.5 F 12/13/20 11:02 Pulse 69 12/13/20 11:02 Resp 18 12/13/20 11:02 BP 133/79 12/13/20 11:02 Pulse Ox 97 12/13/20 11:02 Intake & Output 12/12/20 12/13/20 12/13/20 18:59 06:59 18:59 Intake Total 956.725 109.508 200 Output Total 475 500 Balance 481.725 -390.492 200 Weight 72.2 kg 72.3 kg Intake: IV 360 Sodium Chloride 0.9% 1, 360 000 ml @ 20 mls/hr IV . Q24H АННА Rx#:[id number] Intake, IV Titration 56.725 109.508 Amount Heparin Sod,Pork in 0.45% 56.725 109.508 NaCl 25,000 unit In 0.45 % NaCl 1 250ml.bag @ 16 UNITS/KG/HR 9.798 mls/hr IV .Q24H АННА Rx#: [id number] Oral 540 200 Output: Urine 475 500 Other: Voiding Method Urinal Urinal Urinal # Voids 1 1 - Exam GENERAL EXAM: Patient is alert and oriented and doesn't appear to be in any acute distress HEENT: Normocephalic. Normal reaction of pupils, equal size, normal range of extraocular motion. No erythema or exudates in the throat. NECK: No masses, no nuchal rigidity. CHEST: No chest wall deformity. LUNGS: Equal air entry with no crackles or wheeze. HEART: S1 and S2 normal with no audible mumurs or gallops. Regular rhythm, femorals equal on both sides.. ABDOMEN: No hepatosplenomegaly, normal bowel sounds, no guarding or rigidity. SKIN: No rashes CENTRAL NERVOUS SYSTEM: No focal deficits. EXTREMITIES: No cyanosis, clubbing or edema. Groin soft. No hematoma - Labs CBC & Chem 7: 12/11/20 08:30 12/12/20 04:19 Labs: Abnormal Lab Results - Last 24 Hours (Table) 12/12/20 12/13/20 Range/Units 18:50 02:26 APTT 41.4 H 43.4 H (22.0-30.0) sec Assessment and Plan (1) STEMI (ST elevation myocardial infarction) Current Visit: Yes Status: Acute Code(s): I21.3 - ST ELEVATION (STEMI) MYOCARDIAL INFARCTION OF [facility] SITE SNOMED Code(s): 88298192 (2) Essential hypertension Current Visit: Yes Status: Acute Code(s): I10 - ESSENTIAL (PRIMARY) HYPERTENSION SNOMED Code(s): 59453665 (3) Persistent atrial fibrillation Current Visit: Yes Status: Acute Code(s): I48.19 - OTHER PERSISTENT ATRIAL FIBRILLATION SNOMED Code(s): 319872347 Plan: Transfer to telemetry unit. Increase activity. Switch to Plavix tomorrow and start him on eliquis 2.5 mg by mouth twice a day
[2020-12-13] MEDS: ATORVASTATIN 80 MG TAB PO SCH (19:50)
[2020-12-14] MEDS: PANTOPRAZOLE 40 MG TABLET PO SCH (06:15)
[2020-12-14 07:35] LABS: Basophils % (A) 0 %; Eosinophils # (A) 0.2 k/uL (0-0.7); Eosinophils % (A) 2 %; HCT 36.2 % (39.0-53.0); HGB 11.9 gm/dL (13.0-17.5); Lymphocytes # (A) 0.9 k/uL (1.0-4.8); Lymphocytes % (A) 13 %; MCHC 32.8 g/dL (31.0-37.0); MCV 94.5 fL (80.0-100.0); Monocytes # (A) 0.6 k/uL (0-1.0); Monocytes % (A) 8 %; Neutrophils # (A) 5.6 k/uL (1.3-7.7); Neutrophils % (A) 75 %; Platelet Count 171 k/uL (150-450); RBC 3.83 m/uL (4.30-5.90); RDW 13.7 % (11.5-15.5); WBC 7.4 k/uL (3.8-10.6)
[2020-12-14 07:44] LABS: ALT 33 U/L (4-49); AST 46 U/L (17-59); African American GFR (CKD) >90 (>60 ml/min/1.73 sqM); Albumin 2.9 g/dL (3.5-5.0); Alkaline Phosphatase 74 U/L (38-126); Anion Gap 4 mmol/L; Blood Urea Nitrogen 23 mg/dL (9-20); Calcium 8.5 mg/dL (8.4-10.2); Carbon Dioxide 27 mmol/L (22-30); Chloride 107 mmol/L (98-107); Glucose 108 mg/dL (74-99); Non-African American GFR(CKD) 82 (>60 ml/min/1.73 sqM); Potassium 3.8 mmol/L (3.5-5.1); Sodium 138 mmol/L (137-145); Total Protein 5.6 g/dL (6.3-8.2)
[2020-12-14] MEDS: DORZOLAMIDE HCL 2% DROPS 10 ML BTL BOTH EYES SCH ×2 (08:21→20:04)
[2020-12-14] MEDS: SERTRALINE 50 MG TAB PO SCH (08:22)
[2020-12-14] MEDS: lisinopriL 10 MG TAB PO SCH (08:22)
[2020-12-14] MEDS: CLOPIDOGREL 75 MG TAB PO SCH (08:22)
[2020-12-14] MEDS: TIMOLOL 0.5% OPHTH DROPS 5 ML BTL LEFT EYE SCH ×2 (08:22→20:05)
[2020-12-14] MEDS: MULTIVITAMINS, THERA 1 EACH TAB PO SCH (08:22)
[2020-12-14] MEDS: APIXABAN 2.5 MG TABLET PO SCH ×2 (08:22→20:04)
[2020-12-14] MEDS: METOPROLOL TARTRATE 25 MG TAB PO SCH ×2 (08:22→20:04)
[2020-12-14] MEDS: ASCORBIC ACID 500 MG TAB PO SCH (08:22)
[2020-12-14] MEDS: ASPIRIN 81 MG PO SCH (08:22)
[2020-12-14] MEDS: TAMSULOSIN 0.4 MG CAP.ER.24H PO SCH (08:23)
[2020-12-14] MEDS: SODIUM CHLORIDE 0.9% 1,000 ML IV SCH (10:01)
--- NOTE | 2020-12-14 10:12 | P.PN ---
Subjective Progress Note Date: 12/14/20 Feels fine, no chest pain, no nausea no vomiting no dizziness no shortness of breath Objective - Vital Signs Vital signs: Vital Signs Temp 98 F 12/14/20 08:00 Pulse 84 12/14/20 08:00 Resp 18 12/14/20 08:00 BP 121/70 12/14/20 08:00 Pulse Ox 92 L 12/14/20 08:00 Intake & Output 12/13/20 12/14/20 12/14/20 18:59 06:59 18:59 Intake Total 440 240 240 Output Total 427 Balance 440 -187 240 Weight 68.9 kg Intake: Oral 440 240 240 Output: Urine 425 Stool 2 Other: Voiding Method Urinal Urinal Urinal # Voids 1 1 - Exam Constitutional: No acute distress Eyes: Anicteric sclerae, moist conjunctiva ENMT: NC/AT,Oropharynx clear, no erythema, exudates Neck:Supple, FROM, no masses, or JVD Lungs: Clear to auscultation, Clear to percussion, Normal respiratory effort, no accessory muscle use Cardiovascular: Heart regular in rate and rhythm, No murmurs, gallops, or rubs no peripheral edema Abdominal: Soft Nontender, non distended Skin: Normal temperature Extremities:No digital cyanosis No clubbing, Pedal pulses intact Psychiatric: Alert and oriented to person, place and time, Appropriate affect Intact judgement Neuro: Muscles Strength 5/5 in all 4 extremities, Sensation to light touch grossly present throughout, Cranial nerves II-XII grossly intact. No focal sensory deficits - Labs CBC & Chem 7: 12/14/20 07:08 12/14/20 07:08 Labs: Abnormal Lab Results - Last 24 Hours (Table) 12/14/20 12/14/20 Range/Units 07:08 07:08 RBC 3.83 L (4.30-5.90) m/uL Hgb 11.9 L (13.0-17.5) gm/dL Hct 36.2 L (39.0-53.0) % Lymphocytes # 0.9 L (1.0-4.8) k/uL BUN 23 H (9-20) mg/dL Glucose 108 H (74-99) mg/dL Total Protein 5.6 L (6.3-8.2) g/dL Albumin 2.9 L (3.5-5.0) g/dL Assessment and Plan Plan: 1. STEMI: Status post stent placement, total occlusion of RCA. Cardiology following. Continue aspirin, Lipitor Plavix lisinopril and metoprolol and Eliquis. 2. Essential Hypertension: Stable, monitor 3. Hyperlipidemia: Continue statin 4. Paroxysmal Atrial Fibrillation of new onset: On adequate's and beta noble 5. Chronic systolic congestive heart failure-Echocardiogram = EF 40-45%, WMAs noted of inferior LV wall, RVSP < 35, 6. Hypotension: Requiring Levophed, resolved 7. GERD without esophagitis: Continue PPI 8. Leukocytosis: WBC 17,000 likely reactive, resolved. Patient is a no code DVT prophylaxis: Eliquis Disposition: home versus rehab in 1-2 days
--- NOTE | 2020-12-14 19:00 | P.PN ---
Subjective Progress Note Date: 12/14/20 This is a 80-year-old gentleman who was admitted to the hospital with inferior wall myocardial infarction. Patient also has significant lesions in the circumflex but mainly had total occlusion of the mid RCA. Patient had stent placement by Dr. Alcazar. Patient had heavy clot burden. Patient also had her niated fibrillation on admission and was hypotensive requiring Levophed. Patient however today, appears more stable. Denies any chest pain or shortness of breath. He didn't convert to sinus rhythm. His blood pressure is more stable. Off pressors. Patient is on IV heparin because of persistent atrial fibrillation. We'll continue current medical therapy. Get an echocardiogram. We'll plan to switch to Plavix from Brillinta and consider him on low-dose eliquis. It. Will transfer patient to telemetry unit. 12/14/2020: This patient is doing well. He is admitted with inferior wall microinfarction and had stent placement of the mid RCA. He does have lesions in circumflex. Patient is doing well. Denies any chest pain, shortness of breath, dizziness. He and his lab early show normal electrolytes. Hemoglobin is 11.9. His blood pressure is about 120-145 systolic. Pulse is 64. Respirations 16. Lungs are clear. Heart is regular. Patient is tolerating activity. Possible discharge within next 24-48 hours Objective - Vital Signs Vital signs: Vital Signs Temp 99 F 12/14/20 15:34 Pulse 64 12/14/20 15:34 Resp 16 12/14/20 15:34 BP 145/75 12/14/20 15:34 Pulse Ox 96 12/14/20 15:34 Intake & Output 12/13/20 12/14/20 12/14/20 18:59 06:59 18:59 Intake Total 440 240 740 Output Total 427 Balance 440 -187 740 Weight 68.9 kg Intake: IV 20 Sodium Chloride 0.9% 1, 20 000 ml @ 20 mls/hr IV . Q24H АННА Rx#:[id number] Oral 440 240 720 Output: Urine 425 Stool 2 Other: Voiding Method Urinal Urinal Urinal # Voids 1 1 - Exam GENERAL EXAM: Patient is alert and oriented and doesn't appear to be in any acute distress HEENT: Normocephalic. Normal reaction of pupils, equal size, normal range of extraocular motion. No erythema or exudates in the throat. NECK: No masses, no nuchal rigidity. CHEST: No chest wall deformity. LUNGS: Equal air entry with no crackles or wheeze. HEART: S1 and S2 normal with no audible mumurs or gallops. Regular rhythm, femorals equal on both sides.. ABDOMEN: No hepatosplenomegaly, normal bowel sounds, no guarding or rigidity. SKIN: No rashes CENTRAL NERVOUS SYSTEM: No focal deficits. EXTREMITIES: No cyanosis, clubbing or edema. Groin soft. No hematoma - Labs CBC & Chem 7: 12/14/20 07:08 12/14/20 07:08 Labs: Abnormal Lab Results - Last 24 Hours (Table) 12/14/20 12/14/20 Range/Units 07:08 07:08 RBC 3.83 L (4.30-5.90) m/uL Hgb 11.9 L (13.0-17.5) gm/dL Hct 36.2 L (39.0-53.0) % Lymphocytes # 0.9 L (1.0-4.8) k/uL BUN 23 H (9-20) mg/dL Glucose 108 H (74-99) mg/dL Total Protein 5.6 L (6.3-8.2) g/dL Albumin 2.9 L (3.5-5.0) g/dL Assessment and Plan (1) STEMI (ST elevation myocardial infarction) Current Visit: Yes Status: Acute Code(s): I21.3 - ST ELEVATION (STEMI) MYOCARDIAL INFARCTION OF [facility] SITE SNOMED Code(s): 13431378 (2) Essential hypertension Current Visit: Yes Status: Acute Code(s): I10 - ESSENTIAL (PRIMARY) HYPERTENSION SNOMED Code(s): 25769880 (3) Persistent atrial fibrillation Current Visit: Yes Status: Acute Code(s): I48.19 - OTHER PERSISTENT ATRIAL FIBRILLATION SNOMED Code(s): 904223269 Plan: Patient is clinically stable. He is on aspirin and Plavix along with atelectasis 2.5 mg by mouth twice a day because of atrial fibrillation. Patient could be discharged home. Follow-up as an outpatient. Stages stenting of the circumflex in the near future.
[2020-12-14] MEDS: ATORVASTATIN 80 MG TAB PO SCH (20:04)
[2020-12-15] MEDS: PANTOPRAZOLE 40 MG TABLET PO SCH (06:51)
[2020-12-15 08:23] VITALS: TEMP 98
[2020-12-15] MEDS: TAMSULOSIN 0.4 MG CAP.ER.24H PO SCH (08:24)
[2020-12-15] MEDS: ASCORBIC ACID 500 MG TAB PO SCH (08:24)
[2020-12-15] MEDS: CLOPIDOGREL 75 MG TAB PO SCH (08:24)
[2020-12-15] MEDS: ASPIRIN 81 MG PO SCH (08:24)
[2020-12-15] MEDS: lisinopriL 10 MG TAB PO SCH (08:24)
[2020-12-15] MEDS: SERTRALINE 50 MG TAB PO SCH (08:24)
[2020-12-15] MEDS: DORZOLAMIDE HCL 2% DROPS 10 ML BTL BOTH EYES SCH (08:24)
[2020-12-15] MEDS: METOPROLOL TARTRATE 25 MG TAB PO SCH (08:24)
[2020-12-15] MEDS: MULTIVITAMINS, THERA 1 EACH TAB PO SCH (08:24)
[2020-12-15] MEDS: APIXABAN 2.5 MG TABLET PO SCH (08:24)
[2020-12-15] MEDS: TIMOLOL 0.5% OPHTH DROPS 5 ML BTL LEFT EYE SCH (08:25)
[2020-12-15 08:27] LABS: Basophils % (A) 0 %; Eosinophils # (A) 0.2 k/uL (0-0.7); Eosinophils % (A) 2 %; HCT 39.1 % (39.0-53.0); HGB 13.2 gm/dL (13.0-17.5); Lymphocytes # (A) 1.2 k/uL (1.0-4.8); Lymphocytes % (A) 13 %; MCH 31.7 pg (25.0-35.0); MCHC 33.9 g/dL (31.0-37.0); MCV 93.7 fL (80.0-100.0); Mean Platelet Volume 7.9; Monocytes # (A) 0.7 k/uL (0-1.0); Monocytes % (A) 8 %; Neutrophils % (A) 76 %; Platelet Count 202 k/uL (150-450); RBC 4.17 m/uL (4.30-5.90); RDW 13.2 % (11.5-15.5); WBC 9.2 k/uL (3.8-10.6)
[2020-12-15 08:55] LABS: ALT 34 U/L (4-49); AST 44 U/L (17-59); African American GFR (CKD) >90 (>60 ml/min/1.73 sqM); Albumin 3.3 g/dL (3.5-5.0); Alkaline Phosphatase 84 U/L (38-126); Anion Gap 7 mmol/L; Blood Urea Nitrogen 21 mg/dL (9-20); Calcium 8.7 mg/dL (8.4-10.2); Carbon Dioxide 26 mmol/L (22-30); Chloride 104 mmol/L (98-107); Glucose 123 mg/dL (74-99); Non-African American GFR(CKD) 83 (>60 ml/min/1.73 sqM); Potassium 3.9 mmol/L (3.5-5.1); Sodium 137 mmol/L (137-145); Total Bilirubin 1.3 mg/dL (0.2-1.3); Total Protein 6.3 g/dL (6.3-8.2)
--- NOTE | 2020-12-15 11:17 | P.DS ---
Providers Date of admission: 12/11/20 08:36 Attending physician: Christiana Pollock Consults: 12/11/20 08:34 Consult Physician Stat Consulting Provider: Daniel Montero Consult Reason/Comments: STEMI ACTIVATION COMPLETE Do you want consulting provider notified?: Yes 12/11/20 10:17 Consult Physician Routine Consulting Provider: Daniel Montero Consult Reason/Comments: Post Interventional patient Do you want consulting provider notified?: Already Contacted [facility] Course: HPI: 80 year old man with history of hypertension, hyperlipidemia presented with chest pain. 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 The patient was predominantly in the anterior chest and radiated to his shoulders. Patient also had associated sweats and shortness of breath. Patient did not have any nausea, vomiting, fevers, chills, abdominal pain, dysuria, dyschezia, numbness/weakness. In the emergency room, EKG demonstrated atrial fibrillation with ST elevation in the inferior leads with left axis deviation and heart rate is 62. Patient was taken emergently to the [facility], started on aspirin, heparin drip, atorvastatin. He was seen in the suture recovery unit status post left heart cath with a drug-eluting stent to the mid RCA. Telemetry demonstrates ongoing atrial fibrillation with associated bradycardia, with patient requiring Levophed drip to maintain blood pressure. Chest x-ray demonstrated mild interstitial edema, however, there was poor inspiratory effort. Hospital course and treatment: Patient was admitted to the hospital with ST elevation UT with elevated troponin. He was evaluated by cardiology and underwent cardiac catheterization with total occlusion of RCA which is culprit vessel. Proceed with stent placement. Status stenting of the circumflex lesions . Post stenting patient has done pretty well. He initially was hypotensive and was started on Levophed which subsequently was discontinued. Blood pressure remained stable. Medical management was adjusted. Patient was started on medications by cardiology including metoprolol, lisinopril aspirin, statin Plavix and Eliquis. Chest pain resolved, he remained hemodynamically stable. Leukocytoses resolved likely associated with UT. He was cleared for discharge by cardiology and will be discharged home to follow-up with PCP and cardiology as an outpatient. Diagnoses upon discharge: 1. STEMI 2. Essential Hypertension 3. Hyperlipidemia 4. Paroxysmal Atrial Fibrillation of new onset 5. Chronic systolic congestive heart failure-Echocardiogram = EF 40-45%, WMAs noted of inferior LV wall, RVSP < 35, 6. Hypotension 7. GERD without esophagitis 8. Leukocytosis Patient Condition at Discharge: Stable Plan - Discharge Summary Discharge Rx Participant: Yes New Discharge Prescriptions: New Apixaban [Eliquis] 2.5 mg PO BID #60 tab Aspirin 81 mg PO DAILY 30 Days #30 chew Apixaban [Eliquis] 2.5 mg PO BID tablet Atorvastatin [Lipitor] 80 mg PO HS 30 Days #30 tab Clopidogrel [Plavix] 75 mg PO DAILY 30 Days #30 tab Metoprolol Tartrate [Lopressor] 25 mg PO BID 60 Days #30 tab Continue Tamsulosin HCl [Flomax] 0.4 mg PO DAILY amLODIPine BESYLATE [Norvasc] 5 mg PO DAILY Esomeprazole Magnesium [NexIUM] 40 mg PO DAILY Timolol [Betimol 0.5% Ophth Soln] 1 drop LEFT EYE BID Vitamin B Complex 1 cap PO DAILY Sertraline [Zoloft] 150 mg PO DAILY Fosinopril Sodium [Monopril] 20 mg PO DAILY Dorzolamide HCl/Pf [Dorzolamide 2% Eye Drop] 1 drop BOTH EYES BID Multivitamins, Thera [Multivitamin (formulary)] 1 tab PO DAILY Ascorbic Acid [Vitamin C] 500 mg PO DAILY Discharge Medication List Esomeprazole Magnesium [NexIUM] 40 mg PO DAILY 02/11/14 [History] Tamsulosin HCl [Flomax] 0.4 mg PO DAILY 02/11/14 [History] amLODIPine BESYLATE [Norvasc] 5 mg PO DAILY 02/11/14 [History] Ascorbic Acid [Vitamin C] 500 mg PO DAILY 12/11/20 [History] Dorzolamide HCl/Pf [Dorzolamide 2% Eye Drop] 1 drop BOTH EYES BID 12/11/20 [History] Fosinopril Sodium [Monopril] 20 mg PO DAILY 12/11/20 [History] Multivitamins, Thera [Multivitamin (formulary)] 1 tab PO DAILY 12/11/20 [History] Sertraline [Zoloft] 150 mg PO DAILY 12/11/20 [History] Timolol [Betimol 0.5% Ophth Soln] 1 drop LEFT EYE BID 12/11/20 [History] Vitamin B Complex 1 cap PO DAILY 12/11/20 [History] Apixaban [Eliquis] 2.5 mg PO BID #60 tab 12/13/20 [Rx] Apixaban [Eliquis] 2.5 mg PO BID tablet 12/15/20 [Rx] Aspirin 81 mg PO DAILY 30 Days #30 chew 12/15/20 [Rx] Atorvastatin [Lipitor] 80 mg PO HS 30 Days #30 tab 12/15/20 [Rx] Clopidogrel [Plavix] 75 mg PO DAILY 30 Days #30 tab 12/15/20 [Rx] Metoprolol Tartrate [Lopressor] 25 mg PO BID 60 Days #30 tab 12/15/20 [Rx] Follow up Appointment(s)/Referral(s): Adrienne Johnson MD [STAFF PHYSICIAN] - 1 Week Siria Carnes MD [Primary Care Provider] - 1-2 days [facility] Visiting Nurse, [NON-STAFF] - 1-2 Days Activity/Diet/Wound Care/Special Instructions: Rylie whitmore is at [facility] and costs $9.60 Discharge Disposition: HOME SELF-CARE
[2020-12-15 11:31] VITALS: BP 133/75; PULSE 66; RESP 18
--- NOTE | 2020-12-15 14:30 | P.PN ---
Subjective This is a pleasant 80-year-old male past medical history significant for hypertension, dyslipidemia. 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 EKG reveals atrial fibrillation, heart rate 62, ST elevation in the inferior leads, left axis deviation. No prior EKG to compare. Patient also has significant lesions in the circumflex but mainly had total occlusion of the mid RCA. Patient had stent placement by Dr. Alcazar on 12/11/20. Patient seen and examined at bedside, sitting up in bedside chair, no acute distress blood pressure 133/75, heart rate 66, afebrile, maintaining saturations 96% on room air. Telemetry reviewed, patient maintaining sinus mechanism HR 60- 70s. Patient maintained on eliquis 2.5mg BID, aspirin 81mg daily, lipitor 80mg nightly, Plavix 75mg daily, Lopressor 25mg BID. PHYSICAL EXAMINATION CONSTITUTIONAL: No acute distress. HEENT: Head is normocephalic. CHEST EXAMINATION: Lungs are clear to auscultation. HEART EXAMINATION: Regular rate and rhythm. S1, S2 heard. NEUROLOGIC EXAMINATION: Patient is awake, alert and oriented x 3. ASSESSMENT STEMI Paroxysmal atrial fibrillation History of Hypertension Dyslipidemia PLAN Brilinta was discontinued and patient transitioned to Plavix 300 mg 1 now followed by Plavix 75 mg daily Patient started on eliquis 2.5 mg twice daily, social work case manager will follow up on cost of eliquis ($9.60/mo). Prescription has been sent to his pharmacy. Continue Lipitor 80 mg at bedtime, lisinopril 10 mg daily, Lopressor 25 mg twice daily From cardiology perspective, patient can be discharge home and follow up with Dr. Johnson outpatient within 1 week. Nurse Practitioner note has been reviewed, I agree with a documented findings and plan of care. Patient was seen and examined. Objective - Vital Signs Vital signs: Vital Signs Temp 98 F 12/15/20 08:20 Pulse 66 12/15/20 11:30 Resp 18 12/15/20 11:30 BP 133/75 12/15/20 11:30 Pulse Ox 93 L 12/15/20 11:30 Intake & Output 12/14/20 12/15/20 12/15/20 18:59 06:59 18:59 Intake Total 740 10 240 Output Total 200 Balance 740 -190 240 Weight 69 kg Intake: IV 20 10 Invasive Line 2 10 Sodium Chloride 0.9% 1, 20 000 ml @ 20 mls/hr IV . [facility] Rx#:[id number] Oral 720 240 Output: Urine 200 Other: Voiding Method Urinal Toilet Toilet Urinal Urinal # Voids 1 1 # Bowel Movements 1 - Labs CBC & Chem 7: 12/15/20 07:53 12/15/20 07:53 Labs: Abnormal Lab Results - Last 24 Hours (Table) 12/15/20 12/15/20 Range/Units 07:53 07:53 RBC 4.17 L (4.30-5.90) m/uL BUN 21 H (9-20) mg/dL Glucose 123 H (74-99) mg/dL Albumin 3.3 L (3.5-5.0) g/dL
== END 2020-12-15 14:21 | disposition home or self-care (01) | DRG 247 ==
LOC: EC 08:11 → 2SICU 08:36 → 3SCARD 12-12 13:27
PROVIDERS: ADMIT Internal Medicine; ATTEND Internal Medicine
PROC: 4A023N7 Measurement of Cardiac Sampling and Pressure, Left Heart, Percutaneous Approach (ICD-10-PCS; 2020-12-11)
PROC: B2111ZZ Fluoroscopy of Multiple Coronary Arteries using Low Osmolar Contrast (ICD-10-PCS; 2020-12-11)
PROC: 027036Z Dilation of Coronary Artery, One Artery with Three Drug-eluting Intraluminal Devices, Percutaneous Approach (ICD-10-PCS; principal; 2020-12-11 10:30)
PROC: 02C03ZZ Extirpation of Matter from Coronary Artery, One Artery, Percutaneous Approach (ICD-10-PCS; 2020-12-11 10:30)
DX: I21.19 ST elevation (STEMI) myocardial infarction involving other coronary artery of inferior wall (principal); I50.22 Chronic systolic (congestive) heart failure; I48.19 Other persistent atrial fibrillation; I10 Essential (primary) hypertension; E78.5 Hyperlipidemia, unspecified; H91.92 Unspecified hearing loss, left ear; J44.9 Chronic obstructive pulmonary disease, unspecified; K21.9 Gastro-esophageal reflux disease without esophagitis; M19.90 Unspecified osteoarthritis, unspecified site; N42.9 Disorder of prostate, unspecified; E86.0 Dehydration; F32.9 Major depressive disorder, single episode, unspecified; R00.1 Bradycardia, unspecified; I48.0 Paroxysmal atrial fibrillation; I11.0 Hypertensive heart disease with heart failure; I95.9 Hypotension, unspecified; I25.10 Atherosclerotic heart disease of native coronary artery without angina pectoris; D72.829 Elevated white blood cell count, unspecified; Z79.02 Long term (current) use of antithrombotics/antiplatelets; Z79.01 Long term (current) use of anticoagulants; Z79.82 Long term (current) use of aspirin; Z87.442 Personal history of urinary calculi; Z86.73 Personal history of transient ischemic attack (TIA), and cerebral infarction without residual deficits; Z79.899 Other long term (current) drug therapy
CPT/HCPCS: 36415; 71045; 80048; 80053; 80061; 84439; 84443; 84484; 85025; 85610; 85730; 93005; 93306; 93458; 96374; 99285

== ENCOUNTER 2021-01-02 14:31 | Emergency (ER) | payer MEDICARE ==
[2021-01-02 15:31] VITALS: RESP 18
--- NOTE | 2021-01-02 16:44 | XR ---
Result: History: Pain and swelling. Comparison: None available. Technique: 3 views of the right foot. Findings: The bone mineralization is appropriate for age. No acute fracture or dislocation is seen. There are scattered mild degenerative changes. No radiograp hic evidence for osteomyelitis or soft tissue gas. Atherosclerotic calcifications are seen. There is soft tissue edema about the foot. Impression: Soft tissue edema without acute osseous abnormality.
--- NOTE | 2021-01-02 17:33 | ED ---
Extremity Problem HPI - General Chief complaint: Extremity Problem,Nontraumatic Stated complaint: Leg pain Time Seen by Provider: 01/02/21 15:55 Source: patient Mode of arrival: ambulatory Limitations: no limitations - History of Present Illness Initial comments: Patient is an 80-year-old male with history of heart disease, presenting to the emergency Department with complaints of swelling and pain in his right foot and right lower leg that started today. Patient denies any injuries or trauma, no falls. He states that it does hurt to touch and to walk on it but he is still able to ambulate without difficulty. Patient did have a recent heart cath on 12/11, was started on Plavix, eliquis, as well as an aspirin. Patient states his car catheterization site healed well, he is having no pain of his right upper leg. He denies history of a blood clot. He denies any cuts or sores on his right lower leg. He denies any fevers or chills, no chest pain or shortness of breath. He denies any previous surgeries of his right leg. He has no further complaints at this time. Upon arrival to the ER, his vital signs are stable. - Related Data Home Medications Medication Instructions Recorded Confirmed Esomeprazole Magnesium [NexIUM] 40 mg PO DAILY 02/11/14 12/11/20 Tamsulosin HCl [Flomax] 0.4 mg PO DAILY 02/11/14 12/11/20 amLODIPine BESYLATE [Norvasc] 5 mg PO DAILY 02/11/14 12/11/20 Ascorbic Acid [Vitamin C] 500 mg PO DAILY 12/11/20 12/11/20 Dorzolamide HCl/Pf [Dorzolamide 2% 1 drop BOTH EYES BID 12/11/20 12/11/20 Eye Drop] Fosinopril Sodium [Monopril] 20 mg PO DAILY 12/11/20 12/11/20 Multivitamins, Thera [Multivitamin 1 tab PO DAILY 12/11/20 12/11/20 (formulary)] Sertraline [Zoloft] 150 mg PO DAILY 12/11/20 12/11/20 Timolol [Betimol 0.5% Ophth Soln] 1 drop LEFT EYE BID 12/11/20 12/11/20 Vitamin B Complex 1 cap PO DAILY 04/29/21 04/29/21 Previous Rx's Medication Instructions Recorded Apixaban [Eliquis] 2.5 mg PO BID #60 tab 12/13/20 Apixaban [Eliquis] 2.5 mg PO BID tablet 12/15/20 Aspirin 81 mg PO DAILY 30 Days #30 chew 12/15/20 Atorvastatin [Lipitor] 80 mg PO HS 30 Days #30 tab 12/15/20 Clopidogrel [Plavix] 75 mg PO DAILY 30 Days #30 tab 12/15/20 Metoprolol Tartrate [Lopressor] 25 mg PO BID 60 Days #30 tab 12/15/20 Allergies Allergy/AdvReac Type Severity Reaction Status Date / Time No Known Allergies Allergy Verified 01/02/21 15:31 Review of Systems ROS Statement: Those systems with pertinent positive or pertinent negative responses have been documented in the HPI. ROS Other: All systems not noted in ROS Statement are negative. Past Medical History Past Medical History: Cancer, COPD, GERD/Reflux, Hearing Disorder / Deafness, Hyperlipidemia, Hypertension, Neurologic Disorder, Osteoarthritis (OA), Prostate Disorder Additional Past Medical History / Comment(s): PROSATE CA (2008) RADIATION TX. HX OF TIA. 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 URINARY CALCULI. History of Any Multi-Drug Resistant Organisms: None Reported Past Surgical History: Adenoidectomy, Back Surgery, Joint Replacement, Orthopedic Surgery, Tonsillectomy Additional Past Surgical History / Comment(s): LITHOTRIPSY. BACK OR (1987 & 1997). BILATERAL REVERSE SOCKET OF SHOULDERS. Past Anesthesia/Blood Transfusion Reactions: No Reported Reaction Past Psychological History: Depression Smoking Status: Former smoker Past Alcohol Use History: None Reported Past Drug Use History: None Reported General Exam - General Exam Comments Initial Comments: GENERAL: Patient is well-developed and well-nourished. Patient is nontoxic and in no acute distress. HEAD: Atraumatic, normocephalic. EYES: Pupils equal round and reactive to light, extraocular movements intact, sclera anicteric, conjunctiva are normal. Eyelids were unremarkable. ENT: TMs normal, nares patent, oropharynx clear without exudates. Moist mucous membranes. NECK: Normal range of motion, supple without lymphadenopathy or JVD. LUNGS: Unlabored respirations. Breath sounds clear to auscultation bilaterally and equal. No wheezes rales or rhonchi. HEART: Regular rate and rhythm without murmurs, rubs or gallops. ABDOMEN: Soft, nontender, normoactive bowel sounds. No guarding, no rebound. No masses appreciated. : Deferred MUSCULOSKELETAL: Patient has mild to moderate swelling of his right ankle and right lower leg when compared to the left. He does have some pain around his right foot and ankle, no erythema, or signs of infection. He is neurovascular intact. Sensation is equal in bilateral lower extremities. His left lower extremity is normal. No clubbing or cyanosis. NEUROLOGICAL: Patient is alert and oriented x 3. Motor and sensory are also intact. Cranial nerves II through XII grossly intact. Symmetrical smile. Normal speech, normal gait. PSYCH: Normal mood, normal affect. SKIN: Warm, Dry, normal turgor, no rashes or lesions noted. Limitations: no limitations Course Vital Signs 01/02/21 01/02/21 15:27 17:19 Temperature 98.9 F 100.1 F H Pulse Rate 77 76 Respiratory 18 18 Rate Blood Pressure 123/70 130/78 O2 Sat by Pulse 95 96 Oximetry Medical Decision Making - Medical Decision Making Patient is a 80-year-old male with history of heart disease presenting with swelling and some mild pain of his right ankle and right lower leg that started today. He did have a recent heart catheterization, was started on Plavix, Eliqui and an aspirin. He has been taking his medications as prescribed. He denies any injuries or falls. X-ray of his right foot, showed no acute bony abnormality. Ultrasound of the right lower extremity reveals no evidence for DVT. I discussed this information with the patient and his . I recommended doing elevation above the heart level over the weekend and following up with her family doctor first thing Tuesday morning. Patient and patient's are in agreement with this plan of care. Return parameters were discussed with them and they verbalized understanding. Case discussed Dr. Jenkins. Disposition Clinical Impression: Swelling of right lower extremity Disposition: HOME SELF-CARE Condition: Stable Instructions (If sedation given, give patient instructions): Leg Edema (ED) Additional Instructions: Please return to the Emergency Department if symptoms worsen or any other concerns. Recommend elevation of the right leg above the heart level throughout the weekend. May use ice to the area as well. Follow-up with your family doctor first thing Tuesday. Is patient prescribed a controlled substance at d/c from ED?: No Referrals: Siria Carnes MD [Primary Care Provider] - 1-2 days Time of Disposition: 18:37
--- NOTE | 2021-01-02 18:27 | US ---
EXAMINATION TYPE: US venous doppler duplex LE RT DATE OF EXAM: 01/02/2021 5:40 PM COMPARISON: NONE CLINICAL HISTORY: right ankle/lower leg swelling/pain. edema SIDE PERFORMED: Right TECHNIQUE: The lower extremity deep venous system is examined utilizing real time linear array sonog gonzalez with graded compression, doppler sonography and color-flow sonography. VESSELS IMAGED: Common Femoral Vein Deep Femoral Vein Greater Saphenous Vein * Femoral Vein Popliteal Vein Small Saphenous Vein * Proximal Calf Veins (* superficial vessels) Right Leg: Negative for DVT IMPRESSION: No evidence of right lower extremity DVT.
[2021-01-02 18:55] VITALS: BP 147/77; PULSE 74; TEMP 98.7
== END 2021-01-02 18:53 | disposition home or self-care (01) ==
LOC: EC 14:31
DX: M79.89 Other specified soft tissue disorders (principal); E78.5 Hyperlipidemia, unspecified; I10 Essential (primary) hypertension; J44.9 Chronic obstructive pulmonary disease, unspecified; K21.9 Gastro-esophageal reflux disease without esophagitis; M19.90 Unspecified osteoarthritis, unspecified site; Z79.01 Long term (current) use of anticoagulants; Z79.02 Long term (current) use of antithrombotics/antiplatelets; Z79.82 Long term (current) use of aspirin; Z86.73 Personal history of transient ischemic attack (TIA), and cerebral infarction without residual deficits; Z87.442 Personal history of urinary calculi; Z87.891 Personal history of nicotine dependence
CPT/HCPCS: 99284

== ENCOUNTER → 2021-01-07 | Outpatient (CLI) | payer MEDICARE ==
[2021-01-07 12:10] LABS: Albumin/Globulin Ratio 1.74 (1.60-3.17); Bilirubin, Conjugated 0.3 mg/dL (0.20-0.40); Bilirubin,Unconjugated 0.3 mg/dL; Chol/HDL Ratio 1.92; Globulin 2.3 g/dL (1.6-3.3); LDL Cholesterol,Calculated 27.4 mg/dL (0.0-131.0); Total Bilirubin 0.6 mg/dL (0.3-1.2); Total Protein 6.3 g/dL (6.2-8.2); VLDL Calculation 16.6 mg/dL (5.00-40.00)
== END | disposition home or self-care (01) ==
LOC: LABWHC1 07:28
PROVIDERS: ATTEND Internal Medicine Cardiovascular Disease
DX: I25.10 Atherosclerotic heart disease of native coronary artery without angina pectoris (principal); E78.5 Hyperlipidemia, unspecified
CPT/HCPCS: 36415; 80061; 80076

== ENCOUNTER 2021-05-28 08:59 | Emergency (ER) | payer MEDICARE ==
[2021-05-28 09:12] VITALS: TEMP 98.3
[2021-05-28] MEDS ORDERED: SODIUM CHLORIDE 0.9% 500 ML 500 ML IV STA ×2 (09:26→10:52)
--- NOTE | 2021-05-28 09:47 | ED ---
General Adult HPI - General Chief complaint: Dizziness Stated complaint: Fall/Dizziness Time Seen by Provider: 05/28/21 09:24 Source: patient, family Mode of arrival: wheelchair Limitations: no limitations - History of Present Illness Initial comments: Dictation was produced using [employer] dictation software. please excuse any grammatical, word or spelling errors. Chief Complaint: 81-year-old male presents with dizziness and fall History of Present Illness: Patient is a 81-year-old male U of this morning feeling slightly dizzy when he stood up. He went outside to take out the trash. States that he fell down. He is unclear if he tripped or if he just lost his balance. Patient states he fell landing on his right side. Denies any head trauma. No neck pain. Patient takes anticoagulation medications. He takes apixaban and Plavix. Patient denies any shoulder pain or hip pain. Does not complain of any dizziness while laying down. The ROS documented in this emergency department record has been reviewed and confirmed by me. Those systems with pertinent positive or negative responses have been documented in the HPI. All other systems are other negative and/or noncontributory. PHYSICAL EXAM: General Impression: Alert and oriented x3, not in acute distress HEENT: Normocephalic atraumatic, extra-ocular movements intact, pupils equal and reactive to light bilaterally, mucous membranes moist. Cardiovascular: Heart regular rate and rhythm Chest: Able to complete full sentences, no retractions, no tachypnea Abdomen: abdomen soft, non-tender, non-distended, no organomegaly Musculoskeletal: Pulses present and equal in all extremities, no peripheral edema Motor: no focal deficits noted Neurological: CN II-XII grossly intact, no focal motor or sensory deficits noted, NIH 0, no nystagmus Skin: Small Abrasion to the anterior chest Psych: Normal affect and mood ED course: 81-year-old male presents to the emergency department for dizziness and fall. Vital signs upon arrival are within acceptable limits. Laboratory evaluation obtained. CBC, coag panel, metabolic panels obtained. Elevated BUN to creatinine ratio likely indicative of dehydration. Pelvis x- ray, chest x-ray and computed tomography scan of the head and C-spines unremarkable. Patient observed in the emergency department for approximately 3 hours found to be stable medical condition upon reevaluation at 11:58 AM Patient ambulated to the bathroom. He states he feels baseline. He did not show any signs of unstable gait. Return precautions discussed. Patient told to increase his oral intake of fluids. EKG interpretation: Ventricular rate 56, sinus bradycardia,. Interval to 32, QRS 92, QTc 461. No ID prolongation, no QTC prolongation, no ST or T-wave changes noted. Overall, this EKG is unremarkable - Related Data Home Medications Medication Instructions Recorded Confirmed Esomeprazole Magnesium [NexIUM] 40 mg PO DAILY 02/11/14 12/11/20 Tamsulosin HCl [Flomax] 0.4 mg PO DAILY 02/11/14 12/11/20 amLODIPine BESYLATE [Norvasc] 5 mg PO DAILY 02/11/14 12/11/20 Ascorbic Acid [Vitamin C] 500 mg PO DAILY 12/11/20 12/11/20 Dorzolamide HCl/Pf [Dorzolamide 2% 1 drop BOTH EYES BID 12/11/20 12/11/20 Eye Drop] Fosinopril Sodium [Monopril] 20 mg PO DAILY 12/11/20 12/11/20 Multivitamins, Thera [Multivitamin 1 tab PO DAILY 12/11/20 12/11/20 (formulary)] Sertraline [Zoloft] 150 mg PO DAILY 12/11/20 12/11/20 Timolol [Betimol 0.5% Ophth Soln] 1 drop LEFT EYE BID 12/11/20 12/11/20 Vitamin B Complex 1 cap PO DAILY 12/11/20 12/11/20 Previous Rx's Medication Instructions Recorded Apixaban [Eliquis] 2.5 mg PO BID #60 tab 12/13/20 Apixaban [Eliquis] 2.5 mg PO BID tablet 12/15/20 Aspirin 81 mg PO DAILY 30 Days #30 chew 12/15/20 Atorvastatin [Lipitor] 80 mg PO HS 30 Days #30 tab 12/15/20 Clopidogrel [Plavix] 75 mg PO DAILY 30 Days #30 tab 12/15/20 Metoprolol Tartrate [Lopressor] 25 mg PO BID 60 Days #30 tab 12/15/20 Allergies Allergy/AdvReac Type Severity Reaction Status Date / Time No Known Allergies Allergy Verified 05/28/21 09:12 Review of Systems ROS Statement: Those systems with pertinent positive or pertinent negative responses have been documented in the HPI. ROS Other: All systems not noted in ROS Statement are negative. Past Medical History Past Medical History: Cancer, COPD, GERD/Reflux, Hearing Disorder / Deafness, Hyperlipidemia, Hypertension, Neurologic Disorder, Osteoarthritis (OA), Prostate Disorder Additional Past Medical History / Comment(s): PROSATE CA (2008) RADIATION TX. HX OF TIA. 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 URINARY CALCULI. History of Any Multi-Drug Resistant Organisms: None Reported Past Surgical History: Adenoidectomy, Back Surgery, Joint Replacement, Orthopedic Surgery, Tonsillectomy Additional Past Surgical History / Comment(s): LITHOTRIPSY. BACK OR (1987 & 1997). BILATERAL REVERSE SOCKET OF SHOULDERS. Past Anesthesia/Blood Transfusion Reactions: No Reported Reaction Past Psychological History: Depression Smoking Status: Former smoker Past Alcohol Use History: None Reported Past Drug Use History: None Reported General Exam Limitations: no limitations Course Vital Signs 05/28/21 05/28/21 09:06 10:47 Temperature 98.3 F Pulse Rate 62 54 L Respiratory 20 16 Rate Blood Pressure 106/81 134/72 O2 Sat by Pulse 96 100 Oximetry Medical Decision Making - Lab Data Result diagrams: 05/28/21 09:44 05/28/21 09:44 Lab Results 05/28/21 05/28/21 05/28/21 Range/Units 09:44 09:44 09:44 WBC 8.8 (3.8-10.6) k/uL RBC 4.31 (4.30-5.90) m/uL Hgb 13.7 (13.0-17.5) gm/dL Hct 40.2 (39.0-53.0) % MCV 93.3 (80.0-100.0) fL MCH 31.7 (25.0-35.0) pg MCHC 34.0 (31.0-37.0) g/dL RDW 13.3 (11.5-15.5) % Plt Count 174 (150-450) k/uL MPV 8.1 Neutrophils % 79 % Lymphocytes % 12 % Monocytes % 6 % Eosinophils % 2 % Basophils % 0 % Neutrophils # 6.9 (1.3-7.7) k/uL Lymphocytes # 1.0 (1.0-4.8) k/uL Monocytes # 0.5 (0-1.0) k/uL Eosinophils # 0.2 (0-0.7) k/uL Basophils # 0.0 (0-0.2) k/uL PT 11.0 (9.0-12.0) sec INR 1.0 (<1.2) APTT 22.4 (22.0-30.0) sec Sodium 137 (137-145) mmol/L Potassium 4.1 (3.5-5.1) mmol/L Chloride 105 (98-107) mmol/L Carbon Dioxide 22 (22-30) mmol/L Anion Gap 10 mmol/L BUN 25 H (9-20) mg/dL Creatinine 0.98 (0.66-1.25) mg/dL Est GFR (CKD-EPI)AfAm 83 (>60 ml/min/1.73 sqM) Est GFR (CKD-EPI)NonAf 72 (>60 ml/min/1.73 sqM) Glucose 162 H (74-99) mg/dL Calcium 9.4 (8.4-10.2) mg/dL Magnesium 2.1 (1.6-2.3) mg/dL Total Bilirubin 1.0 (0.2-1.3) mg/dL AST 43 (17-59) U/L ALT 37 (4-49) U/L Alkaline Phosphatase 104 (38-126) U/L Total Protein 6.5 (6.3-8.2) g/dL Albumin 3.7 (3.5-5.0) g/dL Disposition Clinical Impression: Dehydration, Fall Disposition: HOME SELF-CARE Instructions (If sedation given, give patient instructions): Dizziness (ED) Is patient prescribed a controlled substance at d/c from ED?: No Referrals: Siria Carnes MD [Primary Care Provider] - 1-2 days
[2021-05-28 10:24] LABS: Basophils % (A) 0 %; Eosinophils # (A) 0.2 k/uL (0-0.7); Eosinophils % (A) 2 %; HCT 40.2 % (39.0-53.0); HGB 13.7 gm/dL (13.0-17.5); Lymphocytes % (A) 12 %; MCH 31.7 pg (25.0-35.0); MCV 93.3 fL (80.0-100.0); Mean Platelet Volume 8.1; Monocytes # (A) 0.5 k/uL (0-1.0); Monocytes % (A) 6 %; Neutrophils # (A) 6.9 k/uL (1.3-7.7); Neutrophils % (A) 79 %; Platelet Count 174 k/uL (150-450); RBC 4.31 m/uL (4.30-5.90); RDW 13.3 % (11.5-15.5); WBC 8.8 k/uL (3.8-10.6)
[2021-05-28 10:38] LABS: Albumin 3.7 g/dL (3.5-5.0); Calcium 9.4 mg/dL (8.4-10.2); Magnesium 2.1 mg/dL (1.6-2.3); Potassium 4.1 mmol/L (3.5-5.1); Total Protein 6.5 g/dL (6.3-8.2)
--- NOTE | 2021-05-28 10:40 | XR ---
EXAMINATION TYPE: XR chest 1V portable DATE OF EXAM: 05/28/2021 COMPARISON: Chest x-ray December 11, 2020 HISTORY: Fall injury with pain. TECHNIQUE: Single frontal view of the chest is obtained. FINDINGS: Metallic hardware from bilateral shoulder surgery is redemonstrated. Underlying scoliotic curvature is seen. There are chronic parenchymal changes without new suspicious focal airspace opacit y, pleural effusion, or pneumothorax seen bilaterally. Cardiac silhouette size is upper limits of nor mal with atherosclerotic aorta. IMPRESSION: Chronic changes without acute pulmonary process.
[2021-05-28 10:42] LABS: Partial Thromboplastin Time 22.4 sec (22.0-30.0)
--- NOTE | 2021-05-28 10:42 | XR ---
EXAMINATION TYPE: XR pelvis AP view DATE OF EXAM: 05/28/2021 CLINICAL HISTORY: Fall injury with pain TECHNIQUE: A single AP view of the pelvis is obtained. COMPARISON: CT May 17, 2017. FINDINGS: There is no acute fracture/dislocation evident in the pelvis. Mild axial joint space loss in both hips. Pubic Symphysis is intact. Sacroiliac joints are preserved . Overlying vascular calcif ications present bilaterally. IMPRESSION: There is no displaced fracture in the pelvis.
--- NOTE | 2021-05-28 10:59 | CT ---
EXAMINATION TYPE: CT brain apple salazar DATE OF EXAM: 05/28/2021 COMPARISON: None HISTORY: Fall, dizziness. On two blood thinners: Eliquis and Plavix CT DLP: 1313.2 mGycm Automated exposure control for dose reduction was used. TECHNIQUE: CT scan of the head and cervical spine are performed without contrast. FINDINGS: There is no acute intracranial hemorrhage, mass effect, or midline shift identified. The ventricles and sulci are within normal limits in size. There are cerebrovascular calcifications pre sent. Cortical atrophy is noted. Focal low attenuation within the region of the caudothalamic groove on the left likely represents some focal encephalomalacia measuring 17x 7mm. Periventricular white ma tter shows confluent hypoattenuation. The globes are intact and the visualized sinuses are clear. Cervical spine is visualized in its entirety from C1 through upper thoracic levels and demonstrates n ear anatomic alignment without evidence of acute fracture or dislocation. There is anterolisthesis gr ashley 1 C4-5, retrolisthesis grade 1 C3-4, ankylosis is present at C6-7, there is anterolisthesis grade 1 C7-T1. 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 Prevertebral soft tissue appears within normal limits. The C1-C2 articulation shows extensive arthropathy change, there is panus present which shows some local mass e ffect on the thecal sac. There is an atrophic right submandibular gland. There is multilevel facet a rthropathy, neural foraminal encroachment IMPRESSION: 1. There is no acute fracture or dislocation evident in the cervical spine, severe degenerative disc disease, multilevel foraminal encroachment, facet arthropathy as described. 2. No acute intracranial hemorrhage, mass effect, or midline shift is seen, and there is age-related atrophy and chronic small vessel ischemic change.
[2021-05-28 12:45] VITALS: BP 143/69; PULSE 55; RESP 18
== END 2021-05-28 12:44 | disposition home or self-care (01) ==
LOC: EC 08:59
DX: E86.0 Dehydration (principal); I10 Essential (primary) hypertension; E78.5 Hyperlipidemia, unspecified; J44.9 Chronic obstructive pulmonary disease, unspecified; K21.9 Gastro-esophageal reflux disease without esophagitis; M19.90 Unspecified osteoarthritis, unspecified site; F32.9 Major depressive disorder, single episode, unspecified; Z79.01 Long term (current) use of anticoagulants; Z79.02 Long term (current) use of antithrombotics/antiplatelets; Z79.82 Long term (current) use of aspirin; Z85.46 Personal history of malignant neoplasm of prostate; Z90.89 Acquired absence of other organs; Z87.891 Personal history of nicotine dependence; Z86.73 Personal history of transient ischemic attack (TIA), and cerebral infarction without residual deficits; Z87.442 Personal history of urinary calculi
CPT/HCPCS: 36415; 70450; 71045; 72125; 72170; 80053; 83735; 85025; 85610; 85730; 93005; 96360; 96361; 99284

== ENCOUNTER 2021-09-15 07:29 | Emergency (ER) | payer MEDICARE ==
[2021-09-15 07:43] VITALS: RESP 18; TEMP 97.8
[2021-09-15] MEDS ORDERED: MORPHINE SULFATE 4 MG/ML SYRINGE IVP STA (08:09)
[2021-09-15 08:38] LABS: Basophils % (A) 0 %; Eosinophils # (A) 0.1 k/uL (0-0.7); Eosinophils % (A) 1 %; HCT 43.2 % (39.0-53.0); HGB 14.2 gm/dL (13.0-17.5); Lymphocytes % (A) 12 %; MCH 30.8 pg (25.0-35.0); MCHC 32.8 g/dL (31.0-37.0); MCV 93.9 fL (80.0-100.0); Mean Platelet Volume 8.3; Monocytes # (A) 0.7 k/uL (0-1.0); Monocytes % (A) 8 %; Neutrophils # (A) 6.9 k/uL (1.3-7.7); Neutrophils % (A) 78 %; Platelet Count 165 k/uL (150-450); RDW 14.1 % (11.5-15.5); WBC 8.9 k/uL (3.8-10.6)
--- NOTE | 2021-09-15 08:42 | ED ---
General Adult HPI - General Chief complaint: Neck Pain/Injury Stated complaint: Neck Pain/Constipation Time Seen by Provider: 09/15/21 07:48 Source: patient, family Mode of arrival: wheelchair Limitations: no limitations - History of Present Illness Initial comments: Patient is an 81-year-old male with a past medical history of myocardial infarction in November 2020 who presents to the emergency department with a chief complaint of neck pain and generalized weakness. Patient is somewhat demented and helps speak and his behalf. Patient report that the neck pain started 2 days ago, no mechanism of injury. The pain is located on the right la teral, right anterior, and right posterior neck, 8/10 in severity. He also reports generalized weakness. Patient usually walks without assistance at home and is now unable to. Patient and deny fever, chills, headache, shortness of breath, cough, chest pain, palpitations, dizziness, abdominal pain, nausea, and vomiting. does note he has not had a bowel movement in 2 days but this is not unusual. She has COVID-19 vaccinated and boosted. No recent sick contacts. - Related Data Home Medications Medication Instructions Recorded Confirmed Esomeprazole Magnesium [NexIUM] 40 mg PO DAILY 02/11/14 09/15/21 Tamsulosin HCl [Flomax] 0.4 mg PO DAILY 02/11/14 09/15/21 amLODIPine BESYLATE [Norvasc] 5 mg PO DAILY 02/11/14 09/15/21 Dorzolamide HCl/Pf [Dorzolamide 2% 1 drop BOTH EYES DAILY 12/11/20 09/15/21 Eye Drop] Fosinopril Sodium [Monopril] 20 mg PO DAILY 12/11/20 09/15/21 Multivitamins, Thera [Multivitamin 1 tab PO DAILY 12/11/20 09/15/21 (formulary)] Sertraline [Zoloft] 150 mg PO DAILY 12/11/20 09/15/21 Timolol [Betimol 0.5% Ophth Soln] 1 drop LEFT EYE BID 12/11/20 09/15/21 Aspirin EC [Ecotrin Low Dose] 81 mg PO DAILY 09/15/21 09/15/21 Cholecalciferol [Vitamin D3 (25 50 mcg PO DAILY 09/15/21 09/15/21 Mcg = 1000 Iu)] Latanoprost [Xalatan 0.005%] 1 drop BOTH EYES HS 09/15/21 09/15/21 Previous Rx's Medication Instructions Recorded Apixaban [Eliquis] 2.5 mg PO BID tablet 12/15/20 Atorvastatin [Lipitor] 80 mg PO HS 30 Days #30 tab 12/15/20 Clopidogrel [Plavix] 75 mg PO DAILY 30 Days #30 tab 12/15/20 Metoprolol Tartrate [Lopressor] 25 mg PO BID 60 Days #30 tab 12/15/20 Cyclobenzaprine [Flexeril] 5 mg PO TID 7 Days #21 tablet 09/15/21 Ibuprofen [Motrin] 800 mg PO Q8H PRN 7 Days #21 tab 09/15/21 Allergies Allergy/AdvReac Type Severity Reaction Status Date / Time No Known Allergies Allergy Verified 09/15/21 10:48 Review of Systems ROS Statement: Those systems with pertinent positive or pertinent negative responses have been documented in the HPI. ROS Other: All systems not noted in ROS Statement are negative. Past Medical History Past Medical History: Cancer, COPD, GERD/Reflux, Hearing Disorder / Deafness, Hyperlipidemia, Hypertension, Myocardial Infarction ([place]), Neurologic Disorder, Osteoarthritis (OA), Prostate Disorder Additional Past Medical History / Comment(s): PROSATE CA (2008) RADIATION TX. HX OF TIA. 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 URINARY CALCULI. History of Any Multi-Drug Resistant Organisms: None Reported Past Surgical History: Adenoidectomy, Back Surgery, Joint Replacement, Orthop edic Surgery, Tonsillectomy Additional Past Surgical History / Comment(s): LITHOTRIPSY. BACK OR (1987 & 1997). BILATERAL REVERSE SOCKET OF SHOULDERS. Past Anesthesia/Blood Transfusion Reactions: No Reported Reaction Past Psychological History: Depression Smoking Status: Former smoker Past Alcohol Use History: None Reported Past Drug Use History: None Reported General Exam Limitations: no limitations General appearance: alert, in no apparent distress Head exam: Present: atraumatic, normocephalic, normal inspection Eye exam: Present: normal appearance, PERRL, EOMI. Absent: scleral icterus, conjunctival injection, periorbital swelling ENT exam: Present: mucous membranes moist Neck exam: Present: normal inspection, tenderness (right sided laterally, right sided anteriorly, right sided posteriorly ), meningismus (positive brudzinski sign, positive Kernig sign), full ROM (ROM limited laterally both directions due to pain) Respiratory exam: Present: normal lung sounds bilaterally. Absent: respiratory distress, wheezes, rales, rhonchi, stridor, chest wall tenderness Cardiovascular Exam: Present: regular rate, normal rhythm GI/Abdominal exam: Present: soft, distended. Absent: tenderness, guarding, rebound, rigid Neurological exam: Present: alert, oriented X3, CN II-XII intact Psychiatric exam: Present: normal affect, normal mood Skin exam: Present: warm, dry, intact, normal color. Absent: rash Course Vital Signs 09/15/21 09/15/21 07:38 10:20 Temperature 97.8 F Pulse Rate 91 56 L Respiratory 18 18 Rate Blood Pressure 137/79 123/74 O2 Sat by Pulse 100 95 Oximetry EKG Findings - EKG Comments: EKG Findings:: EKG taken at 8:25. Sinus rhythm with first-degree AV block, possible inferior infarct. ventricular rate 60. LA interval 220. QRS duration 88. QT/QTc 458/458 Medical Decision Making - Medical Decision Making Patient is an 81-year-old male with a past medical history of myocardial infarction in November 2020 who presents to the emergency department with a chief complaint of neck pain and generalized weakness. Patient is afebrile. EKG reveals sinus rhythm with first-degree AV block. CBC and CMP are unremarkable. Troponin is negative 1. Urinalysis is clear. Patient is COVID-19 negative. Results discussed with patient. Patient likely having pain due to MSK etiology. Patient will be discharged with anti-inflammatory medication and a muscle relaxer. Return parameters discussed with patient and . - Lab Data Result diagrams: 09/15/21 08:17 09/15/21 08:17 Lab Results 09/15/21 09/15/21 09/15/21 Range/Units 08:17 08:17 08:17 WBC 8.9 (3.8-10.6) k/uL RBC 4.60 (4.30-5.90) m/uL Hgb 14.2 (13.0-17.5) gm/dL Hct 43.2 (39.0-53.0) % MCV 93.9 (80.0-100.0) fL MCH 30.8 (25.0-35.0) pg MCHC 32.8 (31.0-37.0) g/dL RDW 14.1 (11.5-15.5) % Plt Count 165 (150-450) k/uL MPV 8.3 Neutrophils % 78 % Lymphocytes % 12 % Monocytes % 8 % Eosinophils % 1 % Basophils % 0 % Neutrophils # 6.9 (1.3-7.7) k/uL Lymphocytes # 1.0 (1.0-4.8) k/uL Monocytes # 0.7 (0-1.0) k/uL Eosinophils # 0.1 (0-0.7) k/uL Basophils # 0.0 (0-0.2) k/uL Sodium 136 L (137-145) mmol/L Potassium 4.4 (3.5-5.1) mmol/L Chloride 102 (98-107) mmol/L Carbon Dioxide 30 (22-30) mmol/L Anion Gap 4 mmol/L BUN 17 (9-20) mg/dL Creatinine 0.91 (0.66-1.25) mg/dL Est GFR (CKD-EPI)AfAm >90 (>60 ml/min/1.73 sqM) Est GFR (CKD-EPI)NonAf 78 (>60 ml/min/1.73 sqM) Glucose 113 H (74-99) mg/dL Calcium 9.3 (8.4-10.2) mg/dL Total Bilirubin 1.9 H (0.2-1.3) mg/dL AST 57 (17-59) U/L ALT 56 H (4-49) U/L Alkaline Phosphatase 85 (38-126) U/L Troponin I <0.012 (0.000-0.034) ng/mL Total Protein 7.0 (6.3-8.2) g/dL Albumin 3.8 (3.5-5.0) g/dL Urine Color Urine Appearance (Clear) Urine pH (5.0-8.0) Ur Specific [place] (1.001-1.035) Urine Protein (Negative) Urine Glucose (UA) (Negative) Urine Ketones (Negative) Urine Blood (Negative) Urine Nitrite (Negative) Urine Bilirubin (Negative) Urine Urobilinogen (<2.0) mg/dL Ur Leukocyte Esterase (Negative) Coronavirus (PCR) (Not Detectd) 09/15/21 09/15/21 Range/Units 08:36 11:40 WBC (3.8-10.6) k/uL RBC (4.30-5.90) m/uL Hgb (13.0-17.5) gm/dL Hct (39.0-53.0) % MCV (80.0-100.0) fL MCH (25.0-35.0) pg MCHC (31.0-37.0) g/dL RDW (11.5-15.5) % Plt Count (150-450) k/uL MPV Neutrophils % % Lymphocytes % % Monocytes % % Eosinophils % % Basophils % % Neutrophils # (1.3-7.7) k/uL Lymphocytes # (1.0-4.8) k/uL Monocytes # (0-1.0) k/uL Eosinophils # (0-0.7) k/uL Basophils # (0-0.2) k/uL Sodium (137-145) mmol/L Potassium (3.5-5.1) mmol/L Chloride (98-107) mmol/L Carbon Dioxide (22-30) mmol/L Anion Gap mmol/L BUN (9-20) mg/dL Creatinine (0.66-1.25) mg/dL Est GFR (CKD-EPI)AfAm (>60 ml/min/1.73 sqM) Est GFR (CKD-EPI)NonAf (>60 ml/min/1.73 sqM) Glucose (74-99) mg/dL Calcium (8.4-10.2) mg/dL Total Bilirubin (0.2-1.3) mg/dL AST (17-59) U/L ALT (4-49) U/L Alkaline Phosphatase (38-126) U/L Troponin I (0.000-0.034) ng/mL Total Protein (6.3-8.2) g/dL Albumin (3.5-5.0) g/dL Urine Color Yellow Urine Appearance Clear (Clear) Urine pH 6.5 (5.0-8.0) Ur Specific [place] 1.019 (1.001-1.035) Urine Protein Trace H (Negative) Urine Glucose (UA) Negative (Negative) Urine Ketones Negative (Negative) Urine Blood Negative (Negative) Urine Nitrite Negative (Negative) Urine Bilirubin Negative (Negative) Urine Urobilinogen 6.0 (<2.0) mg/dL Ur Leukocyte Esterase Negative (Negative) Coronavirus (PCR) Not Detected (Not Detectd) Disposition Clinical Impression: Neck pain Disposition: HOME SELF-CARE Additional Instructions: Take medications as prescribed. Do not drink alcohol or operate a vehicle while taking Flexeril. Follow-up with primary care provider in 1 to 2 days. Return to the emergency department if he experiences any new, concerning, or worsening symptoms. Prescriptions: Cyclobenzaprine [Flexeril] 5 mg PO TID 7 Days #21 tablet Ibuprofen [Motrin] 800 mg PO Q8H PRN 7 Days #21 tab PRN Reason: Moderate To Severe Spasms Is patient prescribed a controlled substance at d/c from ED?: No Referrals: Siria Carnes MD [STAFF PHYSICIAN] - 1-2 days Time of Disposition: 14:05 Decision Time: 14:12
[2021-09-15 08:56] LABS: AST 57 U/L (17-59); African American GFR (CKD) >90 (>60 ml/min/1.73 sqM); Albumin 3.8 g/dL (3.5-5.0); Anion Gap 4 mmol/L; Blood Urea Nitrogen 17 mg/dL (9-20); Calcium 9.3 mg/dL (8.4-10.2); Carbon Dioxide 30 mmol/L (22-30); Chloride 102 mmol/L (98-107); Glucose 113 mg/dL (74-99); Non-African American GFR(CKD) 78 (>60 ml/min/1.73 sqM); Potassium 4.4 mmol/L (3.5-5.1); Sodium 136 mmol/L (137-145); Total Bilirubin 1.9 mg/dL (0.2-1.3)
[2021-09-15 08:57] LABS: ALT 56 U/L (4-49); Alkaline Phosphatase 85 U/L (38-126)
[2021-09-15 10:21] VITALS: BP 123/74; PULSE 56
[2021-09-15 12:20] LABS: Appearance,Urine Clear (Clear); Bilirubin,Urine Negative (Negative); Blood,Urine Negative (Negative); Color,Urine Yellow; Glucose,Urine (UA) Negative (Negative); Ketones,Urine Negative (Negative); Leukocyte Esterase,Urine Negative (Negative); Nitrite,Urine Negative (Negative); PH, Urine 6.5 (5.0-8.0); Protein,Urine Trace (Negative); Specific Gravity,Urine 1.019 (1.001-1.035)
[2021-09-15] MEDS ORDERED: KETOROLAC 15 MG/ML 1 ML VIAL IVP STA (12:53)
[2021-09-15] MEDS ORDERED: ORPHENADRINE 30 MG/ML 2 ML VIAL IM STA (12:54)
== END 2021-09-15 14:22 | disposition home or self-care (01) ==
LOC: EC 07:29
DX: M54.2 Cervicalgia (principal); J44.9 Chronic obstructive pulmonary disease, unspecified; K21.9 Gastro-esophageal reflux disease without esophagitis; E78.5 Hyperlipidemia, unspecified; I10 Essential (primary) hypertension; I25.2 Old myocardial infarction; M19.90 Unspecified osteoarthritis, unspecified site; F32.A Depression, unspecified; Z20.822 Contact with and (suspected) exposure to COVID-19; Z79.82 Long term (current) use of aspirin; Z79.01 Long term (current) use of anticoagulants; Z79.02 Long term (current) use of antithrombotics/antiplatelets; Z85.46 Personal history of malignant neoplasm of prostate; Z87.442 Personal history of urinary calculi; Z87.891 Personal history of nicotine dependence
CPT/HCPCS: 36415; 80053; 81003; 84484; 85025; 87635; 93005; 96372; 96374; 96375; 99285

== ENCOUNTER 2023-08-10 08:15 | Inpatient (IN) | payer MEDICARE ==
[2023-08-10] MEDS ORDERED: SODIUM CHLORIDE 0.9% 1,000 ML IV STA (08:31)
[2023-08-10] MEDS ORDERED: levETIRAcetam IV 500 MG/5 ML VIAL IVP STA (08:31)
[2023-08-10 08:35] LABS: Glucose,Whole Blood 108 mg/dL (70-110)
[2023-08-10 08:50] LABS: Basophils % (A) 0 %; Eosinophils # (A) 0.1 k/uL (0-0.7); Eosinophils % (A) 1 %; HCT 46.6 % (39.0-53.0); HGB 15.5 gm/dL (13.0-17.5); Lymphocytes # (A) 0.9 k/uL (1.0-4.8); Lymphocytes % (A) 8 %; MCH 31.6 pg (25.0-35.0); MCHC 33.2 g/dL (31.0-37.0); MCV 95.1 fL (80.0-100.0); Mean Platelet Volume 8.1; Monocytes # (A) 0.5 k/uL (0-1.0); Monocytes % (A) 4 %; Neutrophils # (A) 10.1 k/uL (1.3-7.7); Neutrophils % (A) 86 %; Platelet Count 159 k/uL (150-450); RDW 13.9 % (11.5-15.5); WBC 11.7 k/uL (3.8-10.6)
[2023-08-10] MEDS ORDERED: LORazepam 2 MG/ML INJ IV STA (08:50)
[2023-08-10 09:09] LABS: ALT 40 U/L (4-49); AST 45 U/L (17-59); African American GFR (CKD) 79 (>60 ml/min/1.73 sqM); Albumin 4.4 g/dL (3.5-5.0); Alcohol <10 mg/dL; Alkaline Phosphatase 111 U/L (38-126); Anion Gap 14 mmol/L; Blood Urea Nitrogen 25 mg/dL (9-20); Calcium 9.2 mg/dL (8.4-10.2); Carbon Dioxide 24 mmol/L (22-30); Chloride 102 mmol/L (98-107); Glucose 114 mg/dL (74-99); Non-African American GFR(CKD) 68 (>60 ml/min/1.73 sqM); Potassium 3.8 mmol/L (3.5-5.1); Sodium 140 mmol/L (137-145); Total Bilirubin 0.8 mg/dL (0.2-1.3); Total Protein 7.7 g/dL (6.3-8.2)
--- NOTE | 2023-08-10 09:11 | ED ---
General Adult HPI - General Chief complaint: Seizure Stated complaint: seizure Time Seen by Provider: 08/10/23 08:23 Source: patient, EMS, RN notes reviewed, old records reviewed Mode of arrival: EMS Limitations: no limitations - History of Present Illness Initial comments: Patient is an 83-year-old male who presents emergency Department complaining of seizure activity. Has a history of prior stroke, on blood thinners. Did have a prior seizure with a prior stroke previously. Is still on Beal. Has a history of dementia as well. Patient presents without any family members. Apparently is on no anti-epileptic medications as the seizure was a one time occurrence. Presents for further evaluation at this time. Unknown baseline per EMS other than the history of dementia. - Related Data Home Medications Medication Instructions Recorded Confirmed Esomeprazole Magnesium [NexIUM] 40 mg PO DAILY 02/11/14 08/10/23 amLODIPine BESYLATE [Norvasc] 5 mg PO DAILY 02/11/14 08/10/23 Dorzolamide HCl/Pf [Dorzolamide 2% 1 drop BOTH EYES BID 12/11/20 08/10/23 Eye Drop] Fosinopril Sodium [Monopril] 20 mg PO DAILY 12/11/20 08/10/23 Sertraline [Zoloft] 150 mg PO HS 12/11/20 08/10/23 Timolol [Betimol 0.5% Ophth Soln] 1 drop BOTH EYES BID 12/11/20 08/10/23 Aspirin EC [Ecotrin Low Dose] 81 mg PO DAILY 09/15/21 08/10/23 Latanoprost [Xalatan 0.005%] 1 drop BOTH EYES HS 09/15/21 08/10/23 Atorvastatin [Lipitor] 40 mg PO HS 05/03/23 08/10/23 Donepezil [Aricept] 10 mg PO DAILY 05/03/23 08/10/23 Metoprolol Tartrate [Lopressor] 25 mg PO BID 08/10/23 08/10/23 Tamsulosin [Flomax] 0.4 mg PO DAILY 08/10/23 08/10/23 Previous Rx's Medication Instructions Recorded Apixaban [Eliquis] 2.5 mg PO BID tablet 12/15/20 Allergies Allergy/AdvReac Type Severity Reaction Status Date / Time No Known Allergies Allergy Verified 08/10/23 11:25 Review of Systems ROS Statement: Those systems with pertinent positive or pertinent negative responses have been documented in the HPI. ROS Other: All systems not noted in ROS Statement are negative. Past Medical History Past Medical History: Cancer, COPD, GERD/Reflux, Hearing Disorder / Deafness, Hyperlipidemia, Hypertension, Myocardial Infarction ([place]), Neurologic Disorder, Osteoarthritis (OA), Prostate Disorder Additional Past Medical History / Comment(s): PROSATE CA (2008) RADIATION [place]. HX OF TIA. 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 URINARY CALCULI. Last Myocardial Infarction Date:: 2020 History of Any Multi-Drug Resistant Organisms: None Reported Past Surgical History: Adenoidectomy, Back Surgery, Joint Replacement, Orthopedic Surgery, Tonsillectomy Additional Past Surgical History / Comment(s): LITHOTRIPSY. BACK OR (1987 & 1997). BILATERAL REVERSE SOCKET OF SHOULDERS. Past Anesthesia/Blood Transfusion Reactions: No Reported Reaction Past Psychological History: Depression Smoking Status: Former smoker Past Alcohol Use History: None Reported Past Drug Use History: None Reported General Exam - General Exam Comments Initial Comments: General: Appears in no acute distress. HEAD: Normal with no signs of head trauma. EYES: PERRLA, EOMI, conjunctiva normal, no discharge. Pupils are 2-3 mm equal bilaterally. ENT: Hearing grossly intact,suspect tongue injury from biting. RESPIRATORY: Clear breath sounds bilaterally. No wheezes, rales, or rhonchi. C/V: Regular rate and rhythm. S1 and S2 auscultated, no edema, peripheral pulses 2+ and intact throughout ABD: Abd is soft, nontender, nondistended EXT: Normal range of motion, no obvious deformity SKIN: No rashes or lesions observed on exposed skin. NEURO: Alert but nonverbal. Not following commands. Appears postictal.. Cranial nerves II-XII intact. Does appear to have some weakness of the right upper extremity of unknown chronicity. Other obvious neuro deficits at this time. May be postictal deficits. We'll continue to monitor. Patient does have some right upper extremity weakness, approximately 2-3 out of 5 strength as he does resist some movements although it is weak. Patient follows no commands of difficult to evaluate definitively. Limitations: no limitations Course Vital Signs 08/10/23 08/10/23 08/10/23 08:19 09:38 11:00 Temperature 97.4 F L Pulse Rate 84 70 65 Respiratory 18 18 18 Rate Blood Pressure 154/87 131/74 124/68 O2 Sat by Pulse 95 97 95 Oximetry Medical Decision Making - Medical Decision Making Was pt. sent in by a medical professional or institution (, PA, QUILL MACHINE OPERATOR, urgent care, hospital, or long-term...) When possible be specific @ -No Did you speak to anyone other than the patient for history (EMS, parent, family, police, friend...)? What history was obtained from this source @ -Family eventually did present at bedside. Was able to explain the patient does have a history of dementia however is usually high functioning. Normally is alert person place and thing more or less. No obvious deficits from prior stroke. Last known well was 8:30 PM last night. They found him somewhat unresponsive and confused this morning. Did you review nursing and triage notes (agree or disagree)? Why? @ -I reviewed and agree with nursing and triage notes Were old charts reviewed (outside hosp., previous admission, EMS record, old EKG, old radiological studies, urgent care reports/EKG's, long-term records)? Report findings @ -Old charts reviewed Differential Diagnosis (chest pain, altered mental status, abdominal pain women, abdominal pain men, vaginal bleeding, weakness, fever, dyspnea, syncope, headache, dizziness, GI bleed, back pain, seizure, CVA, palpatations, mental health, musculoskeletal)? @ -Differential Seizure: Recurrent seizure disorder, febrile seizure, alcohol withdrawal, stimulants, meningitis, encephalitis, intercranial hemorrhage, intracranial tumor, stroke, eclampsia, thyrotoxicosis, hypocalcemia, hyponatremia, hypernatremia, hypoma gnesemia, psychogenic, this is not meant to be an all-inclusive list. Differential CVA Ischemic stroke, hemorrhagic stroke, brain tumor, atypical migraine, Wernicke's encephalopathy, seizure, multiple sclerosis, meningitis, encephalitis, hypoglycemia, Guillain-Graff, electrolytes disturbance, myasthenia gravis.... This is not meant to be an all-inclusive list EKG interpreted by me (3pts min.). @ -As above X-rays interpreted by me (1pt min.). @ - CT interpreted by me (1pt min.). @ -CT and CTA revealed no obvious evidence of acute intracranial process or stroke etiology. U/S interpreted by me (1pt. min.). @ -None done What testing was considered but not performed or refused? (CT, X-rays, U/S, labs)? Why? @ -None What meds were considered but not given or refused? Why? @ -Considered TPA however patient is outside the window and is having deficits with a seizure on blood thinners. This far outweighs the benefits at this time. Did you discuss the management of the patient with other professionals (professionals i.e. Dr., PA, QUILL MACHINE OPERATOR, lab, RT, psych nurse, community mental health social worker, senior web services developer, teacher, medical officer psychiatry, case loader operator)? Give summary @ -I discussed with neuro crit care Dr. Grady who was in agreement with the plan. He will review the imaging. Is in agreement the patient is not a TPA candidate.Imaging was completed and reviewed with Dr. Grady who did not see any acute intracranial process or any large vessel occlusion or acute process. Recommended medical management. Admission for MRI, antiepileptic medications, neurology evaluation. Recommended we hold his anticoagulation. Recommended to 25 mg of aspirin. All this was completed. Dr. Washburn of neurology was consulted. Patient remains somewhat postictal as well as sedated from his Ativan administration at this time. I updated family and they were in agreement this plan. MRI was ordered by myself. I spoke with the admitting physician, Dr. Condon who accepted the patient. Was smoking cessation discussed for >3mins.? @ -No Was critical care preformed (if so, how long)? @ -Yes, 38 minutes. Were there social determinants of health that impacted care today? How? (Ho melessness, low income, unemployed, alcoholism, drug addiction, transportation, low edu. Level, literacy, decrease access to med. care, alf, rehab)? @ -No Was there de-escalation of care discussed even if they declined (Discuss DNR or withdrawal of care, Hospice)? DNR status @ -No What co-morbidities impacted this encounter? (DM, HTN, Smoking, COPD, CAD, Cancer, CVA, ARF, Chemo, Hep., AIDS, mental health diagnosis, sleep apnea, morbid obesity)? @ -None Was patient admitted / discharged? Hospital course, mention meds given and route, prescriptions, significant lab abnormalities, going to OR and other pertinent info. @ -Based on the patient's presentation and physical exam, presents with suspect postictal state following seizure with some right upper extremity weakness noted on exam. Patient's family did present and as I was discussing with the patient's plan for management he had an additional seizure. Afterwards was having more flaccid paralysis of the right upper extremity and at this time I decided to make the patient a code stroke. Patient is been acting below his baseline since awaking this morning when being found by family. Last known well was 8:30 PM last night. Patient is still postictal and is not falling commands. NIH is at least a 3-4 for the right upper extremity paralysis. No other obvious deficits at this time. Code stroke was activated at 0855 PM after confirming patient's history with family as well as confirming his symptoms as well as having worsening right upper extremity weakness in the setting of a second seizure which occurred in front of me. Patient was generalized tonic- clonic movements during this episode. Vital signs within acceptable limits. Patient given 2 mg of Ativan for his seizure as well as 1500 mg of Keppra. Seizure precautions ordered. Head CT and CT angiogram. Neuro crit care physician Dr. Grady in agreement with the plan. Also in agreement that patient is not a TPA candidate as risks outweigh the benefits of patient is already on Eliquis, and is having seizures. EKG showed no signs of acute ischemia.Imaging was completed and reviewed with Dr. Grady who did not see any acute intracranial process or any large vessel occlusion or acute process. Recommended medical management. Admission for MRI, antiepileptic medications, neurology evaluation. Recommended we hold his antic oagulation. Recommended to 25 mg of aspirin. All this was completed. Dr. Washburn of neurology was consulted. Patient remains somewhat postictal as well as sedated from his Ativan administration at this time. I updated family and they were in agreement this plan. MRI was ordered by myself. I spoke with the admitting physician, Dr. Condon who accepted the patient. Undiagnosed new problem with uncertain prognosis? @ -No Drug Therapy requiring intensive monitoring for toxicity (Heparin, Nitro, Insulin, Cardizem)? @ -No Were any procedures done? @ -No. Diagnosis/symptom? @ -Seizure, CVA versus Avel's paralysis, right upper extremity weakness Acute, or Chronic, or Acute on Chronic? @ -Acute Uncomplicated (without systemic symptoms) or Complicated (systemic symptoms)? @ -Complicated Side effects of treatment? @ -none Exacerbation, Progression, or Severe Exacerbation] @ -no Poses a threat to life or bodily function? @ -Yes - Lab Data Result diagrams: 08/10/23 08:34 08/10/23 08:34 Lab Results 08/10/23 08/10/23 08/10/23 Range/Units 08:34 08:34 08:34 WBC 11.7 H (3.8-10.6) k/uL RBC 4.90 (4.30-5.90) m/uL Hgb 15.5 (13.0-17.5) gm/dL Hct 46.6 (39.0-53.0) % MCV 95.1 (80.0-100.0) fL MCH 31.6 (25.0-35.0) pg MCHC 33.2 (31.0-37.0) g/dL RDW 13.9 (11.5-15.5) % Plt Count 159 (150-450) k/uL MPV 8.1 Neutrophils % 86 % Lymphocytes % 8 % Monocytes % 4 % Eosinophils % 1 % Basophils % 0 % Neutrophils # 10.1 H (1.3-7.7) k/uL Lymphocytes # 0.9 L (1.0-4.8) k/uL Monocytes # 0.5 (0-1.0) k/uL Eosinophils # 0.1 (0-0.7) k/uL Basophils # 0.0 (0-0.2) k/uL PT (10.0-12.5) sec INR (<1.2) APTT (22.0-30.0) sec Sodium 140 (137-145) mmol/L Potassium 3.8 (3.5-5.1) mmol/L Chloride 102 (98-107) mmol/L Carbon Dioxide 24 (22-30) mmol/L Anion Gap 14 mmol/L BUN 25 H (9-20) mg/dL Creatinine 1.01 (0.66-1.25) mg/dL Est GFR (CKD-EPI)AfAm 79 (>60 ml/min/1.73 sqM) Est GFR (CKD-EPI)NonAf 68 (>60 ml/min/1.73 sqM) Glucose 114 H (74-99) mg/dL POC Glucose (mg/dL) 108 (70-110) mg/dL POC Glu Quality Controller ID Paulina Guzmán Calcium 9.2 (8.4-10.2) mg/dL Magnesium 2.0 (1.6-2.3) mg/dL Total Bilirubin 0.8 (0.2-1.3) mg/dL AST 45 (17-59) U/L ALT 40 (4-49) U/L Alkaline Phosphatase 111 (38-126) U/L Creatine Kinase (55-170) U/L Troponin I (0.000-0.034) ng/mL Total Protein 7.7 (6.3-8.2) g/dL Albumin 4.4 (3.5-5.0) g/dL Phenytoin <3.0 ug/mL Valproic Acid <10.0 ug/mL Carbamazepine <3.0 ug/mL [place] <0.2 mmol/L Serum Alcohol <10 mg/dL 08/10/23 08/10/23 08/10/23 Range/Units 09:28 09:28 09:28 WBC (3.8-10.6) k/uL RBC (4.30-5.90) m/uL Hgb (13.0-17.5) gm/dL Hct (39.0-53.0) % MCV (80.0-100.0) fL MCH (25.0-35.0) pg MCHC (31.0-37.0) g/dL RDW (11.5-15.5) % Plt Count (150-450) k/uL MPV Neutrophils % % Lymphocytes % % Monocytes % % Eosinophils % % Basophils % % Neutrophils # (1.3-7.7) k/uL Lymphocytes # (1.0-4.8) k/uL Monocytes # (0-1.0) k/uL Eosinophils # (0-0.7) k/uL Basophils # (0-0.2) k/uL PT 11.4 (10.0-12.5) sec INR 1.0 (<1.2) APTT 21.4 L (22.0-30.0) sec Sodium (137-145) mmol/L Potassium (3.5-5.1) mmol/L Chloride (98-107) mmol/L Carbon Dioxide (22-30) mmol/L Anion Gap mmol/L BUN (9-20) mg/dL Creatinine (0.66-1.25) mg/dL Est GFR (CKD-EPI)AfAm (>60 ml/min/1.73 sqM) Est GFR (CKD-EPI)NonAf (>60 ml/min/1.73 sqM) Glucose (74-99) mg/dL POC Glucose (mg/dL) (70-110) mg/dL POC Glu Quality Controller ID Calcium (8.4-10.2) mg/dL Magnesium (1.6-2.3) mg/dL Total Bilirubin (0.2-1.3) mg/dL AST (17-59) U/L ALT (4-49) U/L Alkaline Phosphatase (38-126) U/L Creatine Kinase 106 (55-170) U/L Troponin I <0.012 (0.000-0.034) ng/mL Total Protein (6.3-8.2) g/dL Albumin (3.5-5.0) g/dL Phenytoin ug/mL Valproic Acid ug/mL Carbamazepine ug/mL [place] mmol/L Serum Alcohol mg/dL - EKG Data -: EKG Interpreted by Me EKG Comments: 12-lead Electrocardiogram Interpretation Note EKG was reviewed and interpreted by myself. 12-lead ECG performed at 0838 is interpreted by me as revealing normal sinus rhythm at a rate of 78 beats per minute. [place] is normal. [place] intervals 207 ms, QRS duration is 90 ms, QTc is 429 ms.. There were no ST or T wave abnormalities to suggest myocardial ischemia or injury. R wave progression across the precordium was satisfactory. By my interpretation this EKG is non-diagnostic for acute ischemia. Critical Care Time Critical Care Time: Yes Total Critical Care Time: 38 Disposition Clinical Impression: Seizure, Weakness Narrative: CVA vs Avel's paralysis Disposition: ADMITTED IP TO THIS HOSP Condition: Stable Time of Disposition: 10:48
[2023-08-10 09:22] LABS: Carbamazepine (Tegretol) <3.0 ug/mL; Lithium <0.2 mmol/L
[2023-08-10 09:24] LABS: Valproic Acid (Depakene) <10.0 ug/mL
[2023-08-10 09:31] LABS: Phenytoin (Dilantin) <3.0 ug/mL
--- NOTE | 2023-08-10 09:38 | CT ---
EXAMINATION TYPE: CT brain cspine wo con CT DLP: 1420.6 mGycm, Automated exposure control for dose reduction was used. DATE OF EXAM: 08/10/2023 9:14 AM COMPARISON: CT brain 05/03/2023 CLINICAL INDICATION:Male, 83 years old with history of seizure activity; TECHNIQUE: Brain: Multiple axial CT images of the brain were obtained without IV contrast. Cspine: Axial CT images from the skull base to the inferior aspect of T2 we obtained without intraven ous contrast. Coronal and sagittal reformatted images were also reviewed. FINDINGS: Brain: Extra-axial spaces: No abnormal extra-axial fluid collections. Ventricular system: Appear dilated in proportion to the degree of cerebral atrophy. Cerebral parenchyma: No increased attenuation to suggest acute intraparenchymal hemorrhage. The gra y-white matter interface appears maintained. Moderate generalized brain atrophy. Patchy and some co nfluent hypoattenuating areas are seen within the cerebral white matter, nonspecific but most often s een with chronic microvascular ischemic changes; moderate in degree. Redemonstration of lacunar infa rcts in the region of the left basal ganglia. Cerebellum: No acute abnormality. Mass effect: No evidence of mass effect or midline shift. Intracranial vasculature: Atherosclerotic calcifications of the larger arteries near the skull base. Soft tissues: Normal. Visualized orbits: Orbital contents appear grossly intact. Radiodensities along the globes likely s equela of previous ophthalmologic surgery. Calvarium/osseous structures: No evidence of calvarial fracture. Paranasal sinuses and mastoid air cells: Clear MRI is more sensitive for detecting acute processes such as infarct, and may be considered if clinica lly warranted. Cervical spine: Fracture: None seen. Osseous structures, spinal canal/neural foramina: Generalized osteopenia. Moderate to severe degenera tive changes throughout the cervical spine. Mild/moderate degenerative change of the anterior C1-C2 a rticulation with mild/moderate retrodental amorphous soft tissue density with small calcifications (c onsiderations include rheumatoid pannus) which likely narrows the anterior space available for the co rd anteriorly without gross evidence of compression by CT. Mild retrolisthesis of the left lateral ma ss C1 over C2, likely degenerative or positional. C2-C3, small posterior disc osteophyte complex and mild hypertrophic facet change causes mild spinal canal stenosis and no significant osseous foraminal stenosis. The right-sided facet is almost completely fused. C3-C4, Moderate degenerative disc diseas e with moderate posterior disc osteophyte complex and 4.4 mm retrolisthesis C3 on C4. There is modera te canal and left neural foraminal stenosis, mild right foraminal stenosis. C4-C5, there is mild to m oderate degenerative disc disease with mild 2.4 mm anterolisthesis C5 on C6. Posterior disc osteophyt e complex and hypertrophic facet change causes moderate right neural foraminal stenosis and moderate canal stenosis. Mild left neural foraminal stenosis. C5-6, moderate to severe degenerative disc disea se with near complete loss of disc space. Disc osteophyte complex and hypertrophic facet changes caus es moderate spinal canal stenosis and right neural foraminal stenosis. Mild left foraminal stenosis. C6-7 shows severe degenerative disc disease with near complete loss of the disc space. Small posterio r disc osteophyte complex and hypertrophic facet change causes moderate bilateral neural foraminal st enosis and mild/moderate canal stenosis. C7-T1, there is moderate degenerative disc disease with mild approximately 2 mm anterolisthesis C7 on T1. Disc osteophyte complex and hypertrophic facet changes causes mild to moderate canal stenosis and moderate foraminal stenoses. Relatively milder degenerativ e changes of the visualized upper thoracic spine without suggestion of critical canal or neuroforamin al narrowing. Vertebral alignment: No traumatic malalignment. Some straightening of the normal cervical lordosis, l ikely due to degenerative changes. There are levels of degenerative listhesis, as above. Neck soft tissues: Limitations by beam hardening artifact emanating from bilateral shoulder prosthese s. Moderate calcifications along the aortic arch, moderate to severe calcifications in the bilateral neck mostly at the level of the carotid bifurcations. Airway is patent with mild mucous secretions no laura in the mid trachea. Other: Lung apices show no acute infiltrate or pneumothorax. Chronic senescent changes. IMPRESSION: CT head: * Overall stable intracranial findings. No CT evidence of an acute abnormality. CT cervical spine: * No evidence of cervical spine fracture or traumatic malalignment. * Moderate/severe cervical spondylosis.
[2023-08-10 10:09] LABS: Prothrombin Time 11.4 sec (10.0-12.5)
[2023-08-10] MEDS ORDERED: ASPIRIN 325 MG TAB PO STA (10:25)
[2023-08-10 10:27] LABS: Partial Thromboplastin Time 21.4 sec (22.0-30.0)
[2023-08-10] MEDS ORDERED: levETIRAcetam IV 500 MG/5 ML VIAL IVP ONE (10:30)
--- NOTE | 2023-08-10 10:39 | CT ---
EXAMINATION TYPE: CT angio head neck DATE OF EXAM: 08/10/2023 9:33 AM COMPARISON: CTA head and neck 05/03/2023. CLINICAL INDICATION:Male, 83 years old with history of RUE weakness post seizure; PHH, seizure, Rt si ded weakness TECHNIQUE: Axially acquired helical CT angiogram of the head and neck was obtained with contrast. Axi al images are supplemented with 3D reconstructions which [facility] NASCET criteria used. Contrast used: 65 mL of Isovue 370 with IV Contrast, Oral contrast used: None. CT DLP: 1420.6 mGycm, Automated exposure control for dose reduction was used. FINDINGS: CTA Neck: A 3 vessel aortic arch is shown, but additionally the left vertebral artery appears to agapito se directly from the arch after the left subclavian artery; there is dense calcific plaque seen along the arch very close to the takeoff of the left vertebral, and a significant stenosis cannot be exclu ded. Moderate atherosclerotic plaque, mostly calcified, along the aortic arch and proximal branches w ith mild narrowing of the left common carotid and left subclavian arteries proximally. Right vertebr al artery takes off of the right subclavian as usual, there is dense calcific plaque very close to it s origin and potentially significant stenosis cannot be excluded. Vertebral arteries appear to be pat ent in the neck bilaterally to the skull base. The right is dominant. Both common carotids proximally appear normally patent. On the right, there is heavy calcific plaque seen at the distal common carotid and proximal ICA, the plaque appears to severely narrow the ICA wit h minimal opacification of the lumen seen, suggestive of a critical stenosis. There is also mild to m oderate narrowing of the proximal right ECA. ICA otherwise appears normally patent to the skull base. On the left, there is moderate mostly calcified plaque at the carotid bifurcation and proximal ICA, c alcification appears mostly peripheral. Lumen appears maximally narrowed to 2.1 mm, compared to a mor e normal distal ICA measurement of 5.1 mm, is consistent with a 60% diameter stenosis. Mostly calcifi ed plaque results in mild to moderate stenosis of the proximal left internal carotid external externa l carotid artery at the origin of the right ECA, there is relatively heavy calcific plaque with about 50% luminal narrowing. Common carotid, external carotid, cervical segments of the internal carotid, and the cervical segments of the vertebral arteries are patent. There is no dissection or pseudoaneur ysm present in the neck. Other: Imaged portions of the lung apices demonstrate chronic senescent changes, no acute infiltrate or pneumothorax. CTA Head: The anterior and posterior cerebral circulations are patent. No hemodynamically significan t stenosis, aneurysm, dissection, or arteriovenous malformation is shown. Moderate atherosclerotic ca lcification of the carotid siphons without significant stenosis seen. The right ICA terminus appears patent. Slightly diminutive appearance and tortuosity of the A1 segment of the right YAIMA, farther dis tally appears to receive a contribution via the anterior communicating artery and appears more robust . Anterior communicating artery is unremarkable. Patent bilateral posterior communicating arteries, w ith likely significant supply via the left P-comm to the [employer]. The bilateral intracranial vertebral arteries are patent, as is the basilar artery. Posterior cerebra l arteries are patent. No aneurysm, high-grade stenosis, or large vessel occlusion demonstrated by CTA. Other: Pre-contrast CT head: Please see report from earlier today. The dural venous sinuses appear grossly patent without evidence of thrombosis. Right transverse sinus is dominant. IMPRESSION: CTA neck: * Heavy calcific plaque at the distal right common carotid and proximal ICA, with severe narrowing s uggesting a critical stenosis. * Moderate mostly calcified plaque at the left carotid bifurcation and proximal left ICA, with 60% d iameter stenosis of the proximal left ICA. * Mostly calcified plaque results in mild to moderate stenosis of the proximal external carotid caty shaheen bilaterally. * Three-vessel aortic arch, plus the left vertebral artery appears to arise directly from the arch. Close to the takeoff of the left vertebral, there is dense calcific plaque and a significant stenosis cannot be excluded. * Right vertebral artery shows dense calcific plaque very close to its origin, and potentially signi ficant stenosis cannot be excluded. The right vertebral is dominant. * No evidence of dissection or pseudoaneurysm in the neck. CTA head: * No intracranial major vascular occlusion, hemodynamically significant stenosis, or sizable aneurys m detected in the limits of CTA.
--- NOTE | 2023-08-10 11:38 | XR ---
EXAMINATION TYPE: XR chest 1V portable DATE OF EXAM: 08/10/2023 11:13 AM CLINICAL INDICATION:Male, 83 years old with history of seizure; [facility] COMPARISON: Chest radiographs from 05/03/2023. TECHNIQUE: XR chest 1V portable Frontal view of the chest. FINDINGS: Lungs/Pleura: There is no evidence of pleural effusion, focal consolidation, or pneumothorax. Pulmonary vascularity: Unremarkable. Heart/mediastinum: Cardiomediastinal silhouette is enlarged and stable. Atherosclerotic calcificatio ns are seen in the aorta. Musculoskeletal: No acute osseous pathology. Bilateral shoulder arthroplasties appear intact. IMPRESSION: Low lung volumes with a generalized hazy appearance which could represent atelectasis versus pulmonar y edema correlate with serum BNP.
[2023-08-10] MEDS ORDERED: hydrALAZINE HCL 20 MG/ML 1 ML VIAL IVP PRN (13:16)
--- NOTE | 2023-08-10 13:17 | P.HPIM ---
History of Present Illness H&P Date: 08/10/23 History of present illness; patient is a 83-year-old gentleman with past medical history significant for dementia, hypertension, depression who presented to The ER for altered mental status. Patient last well-known was last evening at 8:30. This morning when his went into the room to check on him, he was found laying on the floor. There was no obvious sign of any trauma. Patient had lost control over his bowel and urine. EMS was called and when they arrived, patient was noted to have jerking of his extremities. Patient history of previous seizures patient was brought to the ER. In the ER patient was found to have flaccid paralysis of right upper extremity and another seizure in front of ER staff. Initial lab work done in the ER showed 11.7, hemoglobin 15.5, platelet count 159, sodium 140, potassium 3.8, BUN 29 creatinine 1.01, AST 45, AST 40 EKG done in the ER showed heart rate of , no ST segment elevation or depression seen, no T-wave inversions seen. Chest x-ray done in the ER CT head done showed no acute intracranial process CT cervical spine done showed no acute cervical spine fracture CTA head and neck done showed heavy calcific plaque of the distal right common carotid and proximal ICA with severe narrowing suggestive of critical stenosis Patient admitted to internal medicine service REVIEW OF SYSTEMS: Review of systems cannot be obtained as patient currently post ictal PHYSICAL EXAMINATION: GENERAL: The patient is post ictal, not in any acute distress. Well developed, well nourished. HEENT: Pupils are round and equally reacting to light. EOMI. No scleral icterus. No conjunctival pallor. Normocephalic, atraumatic. No pharyngeal erythema. No thyromegaly. CARDIOVASCULAR: S1 and S2 present. No murmurs, rubs, or gallops. PULMONARY: Chest is clear to auscultation, no wheezing or crackles. ABDOMEN: Soft, nontender, nondistended, normoactive bowel sounds. No palpable organomegaly. MUSCULOSKELETAL: No joint swelling or deformity. EXTREMITIES: No cyanosis, clubbing, or pedal edema. NEUROLOGICAL: Detailed neuro exam cannot be performed, no rigidity noticeable, patient was moving his extremities on his own. Currently post ictal SKIN: No rashes. Assessment and plan Acute metabolic encephalopathy Seizures Right ICA stenosis Monitor vital signs Monitor CBC Monitor CMP Continue telemetry monitoring Fall precautions Seizure precautions Delirium precautions Continue neuro checks Ordered EEG Ordered MRI brain consult neurology Consult vascular surgery Labs and medication were reviewed.. Continue same treatment. Continue with symptomatic treatment. Resume home medication. Monitor labs and vitals. DVT and GI prophylaxis. Further recommendations as per clinical course of the patient Dictation was produced using [employer] dictation software. please excuse any grammatical, word or spelling errors. Past Medical History Past Medical History: Cancer, COPD, GERD/Reflux, Hearing Disorder / Deafness, Hyperlipidemia, Hypertension, Myocardial Infarction ([place]), Neurologic Disorder, Osteoarthritis (OA), Prostate Disorder Additional Past Medical History / Comment(s): PROSATE CA (2008) RADIATION [place]. HX OF TIA. 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 URINARY CALCULI. Last Myocardial Infarction Date:: 2020 History of Any Multi-Drug Resistant Organisms: None Reported Past Surgical History: Adenoidectomy, Back Surgery, Joint Replacement, Orth opedic Surgery, Tonsillectomy Additional Past Surgical History / Comment(s): LITHOTRIPSY. BACK OR (1987 & 1997). BILATERAL REVERSE SOCKET OF SHOULDERS. Past Anesthesia/Blood Transfusion Reactions: No Reported Reaction Past Psychological History: Depression Smoking Status: Former smoker Past Alcohol Use History: None Reported Past Drug Use History: None Reported Medications and Allergies Home Medications Medication Instructions Recorded Confirmed Type Esomeprazole Magnesium [NexIUM] 40 mg PO DAILY 02/11/14 08/10/23 History amLODIPine BESYLATE [Norvasc] 5 mg PO DAILY 02/11/14 08/10/23 History Dorzolamide HCl/Pf [Dorzolamide 2% 1 drop BOTH EYES BID 12/11/20 08/10/23 History Eye Drop] Fosinopril Sodium [Monopril] 20 mg PO DAILY 12/11/20 08/10/23 History Sertraline [Zoloft] 150 mg PO HS 12/11/20 08/10/23 History Timolol [Betimol 0.5% Ophth Soln] 1 drop BOTH EYES BID 12/11/20 08/10/23 History Apixaban [Eliquis] 2.5 mg PO BID tablet 12/15/20 08/10/23 Rx Aspirin EC [Ecotrin Low Dose] 81 mg PO DAILY 09/15/21 08/10/23 History Latanoprost [Xalatan 0.005%] 1 drop BOTH EYES HS 09/15/21 08/10/23 History Atorvastatin [Lipitor] 40 mg PO HS 05/03/23 08/10/23 History Donepezil [Aricept] 10 mg PO DAILY 05/03/23 08/10/23 History Metoprolol Tartrate [Lopressor] 25 mg PO BID 08/10/23 08/10/23 History Tamsulosin [Flomax] 0.4 mg PO DAILY 08/10/23 08/10/23 History Allergies Allergy/AdvReac Type Severity Reaction Status Date / Time No Known Allergies Allergy Verified 08/10/23 11:25 Physical Exam Vitals: Vital Signs Temp Pulse Resp BP Pulse Ox 08/10/23 11:00 65 18 124/68 95 08/10/23 09:38 70 18 131/74 97 08/10/23 08:19 97.4 F L 84 18 154/87 95 Intake and Output 08/09/23 08/10/23 08/10/23 22:59 06:59 14:59 Other: Weight 78.925 kg Results CBC & Chem 7: 08/10/23 08:34 08/10/23 08:34 Labs: Abnormal Lab Results - Last 24 Hours (Table) 08/10/23 08/10/23 08/10/23 Range/Units 08:34 08:34 09:28 WBC 11.7 H (3.8-10.6) k/uL Neutrophils # 10.1 H (1.3-7.7) k/uL Lymphocytes # 0.9 L (1.0-4.8) k/uL APTT 21.4 L (22.0-30.0) sec BUN 25 H (9-20) mg/dL Glucose 114 H (74-99) mg/dL
--- NOTE | 2023-08-10 13:42 | P.PN ---
Progress Note - Text Progress Note Date: 08/10/23 Went to see patient per consult for carotid stenosis. Patient's at the bedside. She states that the patient follows with Dr. Osborn for cardiology as well as he is following his carotid stenosis. She is requesting patient be seen by Dr. Osborn for carotid stenosis. Dr. Washburn with neurology notified. Thank you we will sign off at this time. The impression and plan of care has been dictated as directed. I performed a history and examination of this patient, discussed the same with the dictator. I agree with the dictator's note ,documented as a scribe. Any additional findings or plans will be noted.
[2023-08-10] MEDS ORDERED: LORazepam 2 MG/ML INJ IV PRN (15:02)
--- NOTE | 2023-08-10 15:04 | P.CNNES ---
History of Present Illness Consult date: 08/10/23 Requesting physician: Alonso Esteves Reason for Consult: cva vs dmitri's paralysis History of Present Illness: This is an 83-year-old gentleman who presented emergency department because of unresponsiveness. History is obtained from patient's was at bedside as well as the ED physician. According to the being patient the was found on the floor at home at 7 AM unresponsiveness in the last normal she the from the normal was 8:30 PM last night. When EMS arrived he was having whole body shaking. Seems that he had also urinary incontinence and he has a blood around his mouth. Unsure exactly ration. It seems that the with this episode he had the weakness over the right side. According to the the patient has underlying dementia and he is oriented to self may be he is oriented to place only his own place. He is able to feed himself uses the bathroom in his own. Patient is on ASA and Eliquis at home. According to the is here he had a TIA episodes in which she had speech difficulty was in April 2023 and again she had he had speech difficulty and well-healed he was in the EMS he had a seizure-like activity. He was not placed on any seizure medication. Seems that he was seen by Dr. Nguyen. He mentioned that the patient EEG was limited because of significant myogenic artifact o therwise the study was normal for the patient's age. His refer to his note for further details. According to ED physician a code stroke was activated Patient NIH stroke scale was 3-4 for right upper 70 paralysis. He spoke with Dr. tee. Patient had right upper weakness in the setting of second seizure which occurred in front of the the ED physician. He had generalized tonic-clonic movement during the episode that. He was given Ativan 2 mg then was loaded with Keppra 1500 mg at. The ED spoke with stroke attending Dr. Barragan. Patient had CT of the head and CT angiography. There is no large acute intracranial process or any large vessel occlusion. No intervention. Glucose is 114 Sodium, BUN and creatinine, calcium, magnesium AST and ALT are within normal limits Review of Systems Limited but the positive and negative as per HPI. Past Medical History Past Medical History: Cancer, COPD, GERD/Reflux, Hearing Disorder / Deafness, Hyperlipidemia, Hypertension, Myocardial Infarction ([place]), Neurologic Disorder, Osteoarthritis (OA), Prostate Disorder Additional Past Medical History / Comment(s): PROSATE CA (2008) RADIATION [place]. HX OF TIA. 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 URINARY CALCULI. Last Myocardial Infarction Date:: 2020 History of Any Multi-Drug Resistant Organisms: None Reported Past Surgical History: Adenoidectomy, Back Surgery, Joint Replacement, Orthopedic Surgery, Tonsillectomy Additional Past Surgical History / Comment(s): LITHOTRIPSY. BACK OR (1987 & 1997). BILATERAL REVERSE SOCKET OF SHOULDERS. Past Anesthesia/Blood Transfusion Reactions: No Reported Reaction Past Psychological History: Depression Smoking Status: Former smoker Past Alcohol Use History: None Reported Past Drug Use History: None Reported Medications and Allergies Home Medications Medication Instructions Recorded Confirmed Type Esomeprazole Magnesium [NexIUM] 40 mg PO DAILY 02/11/14 08/10/23 History amLODIPine BESYLATE [Norvasc] 5 mg PO DAILY 02/11/14 08/10/23 History Dorzolamide HCl/Pf [Dorzolamide 2% 1 drop BOTH EYES BID 12/11/20 08/10/23 History Eye Drop] Fosinopril Sodium [Monopril] 20 mg PO DAILY 12/11/20 08/10/23 History Sertraline [Zoloft] 150 mg PO HS 12/11/20 08/10/23 History Timolol [Betimol 0.5% Ophth Soln] 1 drop BOTH EYES BID 12/11/20 08/10/23 History Apixaban [Eliquis] 2.5 mg PO BID tablet 12/15/20 08/10/23 Rx Aspirin EC [Ecotrin Low Dose] 81 mg PO DAILY 09/15/21 08/10/23 History Latanoprost [Xalatan 0.005%] 1 drop BOTH EYES HS 09/15/21 08/10/23 History Atorvastatin [Lipitor] 40 mg PO HS 05/03/23 08/10/23 History Donepezil [Aricept] 10 mg PO DAILY 05/03/23 08/10/23 History Metoprolol Tartrate [Lopressor] 25 mg PO BID 08/10/23 08/10/23 History Tamsulosin [Flomax] 0.4 mg PO DAILY 08/10/23 08/10/23 History Allergies Allergy/AdvReac Type Severity Reaction Status Date / Time No Known Allergies Allergy Verified 08/10/23 11:25 Physical Examination - Vital Signs Vital Signs: Vital Signs Temp Pulse Resp BP Pulse Ox 08/10/23 14:00 68 18 117/64 97 08/10/23 11:00 65 18 124/68 95 08/10/23 09:38 70 18 131/74 97 08/10/23 08:19 97.4 F L 84 18 154/87 95 Intake and Output 08/09/23 08/10/23 08/10/23 22:59 06:59 14:59 Other: Weight 78.925 kg General: Lying in bed and does not appear in acute distress. Neuro: The patient is severely encephalopathic. Patient would open his eyes and look around right and left but mostly left. Not verbalizing or following commands. Pupils are 3mm bilaterally and reactive to light. Pupils are 3mm bilaterally. No facial weakness. Has blood product around the mouth. Motor: Strength is limited. Would move the left upper extremity spontaneously above gravity and not left. Plantars are mute bilaterally. Results - Laboratory Findings CBC and BMP: 08/10/23 08:34 08/10/23 08:34 Abnormal Lab Findings: Abnormal Labs 08/10/23 08/10/23 08/10/23 08:34 08:34 09:28 WBC 11.7 H Neutrophils # 10.1 H Lymphocytes # 0.9 L APTT 21.4 L BUN 25 H Glucose 114 H Assessment and Plan Assessment: This is an 83 y/o gentleman with history of moderate dementia who had possible TIA in 04/2023 with speech difficulty and while in ED had seizure like activity but was not started on seizure medication who presents because was found unresponsive at home. He had seizure like activity. While in ED this visit he had another seizure-like activity witnessed by ED with GTC. He had blood around mouth and urinary incontinence. He also has right upper extremity weakness. Breakthrough seizure-like. 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 Cannot exclusively rule out stroke Right ICA stenosis critical severe stenosis on CTA while the left is 60% History of dementia Hard of hearing History of coronary artery disease Plan: I changed MRI from without to with and without. I ordered EEG. Patient was placed on Keppra 1000mg bid IV by ED and will leave the same dose for now until work-up is complete and patient condition improves then will consider lowering to lower dose since was not on antiepileptic drugs prior to this. I initially consulted vascular surgery for carotid stenosis but it seems the patient follows-up with Dr. Osborn for his known carotid stenosis. So will d/c consult for vascular. Will get imaging of MRI to assess if new stroke. If does have stroke will get Dr. Osborn on consultation to address carotid stenosis as inpatient. seizure precaution and pads. Placed on ASA 325mg daily (was on 81mg daily at home) and Lipitor 40mg qhs. Patient is on Eliquis 2.5mg bid at home. Will defer the rest of medical management to the primary team. The plan is discussed with patient's who is at bedside and primary team. Thank you for the consultation. Time with Patient: Greater than 30
[2023-08-10] MEDS ORDERED: levETIRAcetam IV 1,000 MG in SODIUM CHLORIDE 0.9% 250 ML IVPB SCH (21:00)
[2023-08-10] MEDS: levETIRAcetam IV 500 MG/5 ML VIAL IVP SCH (21:51)
[2023-08-10] MEDS: METOPROLOL TARTRATE 25 MG TAB PO SCH (22:11)
[2023-08-10] MEDS: SERTRALINE 50 MG TAB PO SCH (22:11)
[2023-08-10] MEDS: TAMSULOSIN 0.4 MG CAP.ER.24H PO SCH (22:11)
[2023-08-10] MEDS: DONEPEZIL 10 MG TAB PO SCH (22:11)
[2023-08-10] MEDS: ATORVASTATIN 40 MG TAB PO SCH (22:11)
[2023-08-10] MEDS: DORZOLAMIDE HCL 2% DROPS 10 ML BTL BOTH EYES SCH (22:17)
[2023-08-10] MEDS: TIMOLOL 0.5% OPHTH DROPS 5 ML BTL BOTH EYES SCH (22:17)
[2023-08-10] MEDS: LATANOPROST 0.005% OPHTH DROPS 2.5 ML BTL BOTH EYES SCH (22:17)
--- NOTE | 2023-08-11 02:10 | EEG ---
ELECTROENCEPHALOGRAM REPORT CLINICAL HISTORY: This is an 83-year-old gentleman, who had seizure-like activity. The video EEG is obtained to evaluate for seizure epileptiform activity. RELEVANT MEDICATIONS: On Keppra, Ativan. EEG TYPE: A routine 21-channel EEG with video using the 10/20 electrode system. DESCRIPTION: Background appears low voltage of 5.5 to 6.5 hertz activity. At times, background consists of diffuse nonrhythmic delta activity. There is no physiological stage II sleep architecture. There is no focal slowing. There is a moderate amount of myogenic artifact over bilateral temporal region Interictal and ictal none. ACTIVATION PROCEDURE: Photic stimulation and hyperventilation are not performed. CLINICAL INTERPRETATION: This is an abnormal routine EEG. The background slowing is suggestive of moderate encephalopathy. There is no focal slowing, epileptiform discharge, or seizure on the EEG. Clinical correlation is recommended. POL[place] / DEL: [id number] / MTDD
[2023-08-11] MEDS: PANTOPRAZOLE 40 MG TABLET PO SCH ×2 (06:16→17:45)
[2023-08-11] MEDS: METOPROLOL TARTRATE 25 MG TAB PO SCH ×2 (09:22→21:03)
[2023-08-11] MEDS: ASPIRIN 325 MG TAB PO SCH (09:22)
[2023-08-11] MEDS: TAMSULOSIN 0.4 MG CAP.ER.24H PO SCH (09:22)
[2023-08-11] MEDS: levETIRAcetam IV 500 MG/5 ML VIAL IVP SCH ×2 (09:22→21:02)
[2023-08-11] MEDS: TIMOLOL 0.5% OPHTH DROPS 5 ML BTL BOTH EYES SCH ×2 (09:23→22:32)
[2023-08-11] MEDS: DORZOLAMIDE HCL 2% DROPS 10 ML BTL BOTH EYES SCH ×2 (09:23→22:55)
[2023-08-11 11:10] LABS: Basophils % (A) 0 %; Chol/HDL Ratio 1.77 Ratio; Eosinophils # (A) 0.1 k/uL (0-0.7); Eosinophils % (A) 1 %; HCT 39.9 % (39.0-53.0); HGB 13.7 gm/dL (13.0-17.5); LDL Cholesterol,Calculated 24.2 mg/dL (0.0-131.0); Lymphocytes # (A) 1.3 k/uL (1.0-4.8); Lymphocytes % (A) 12 %; MCH 32.4 pg (25.0-35.0); MCHC 34.4 g/dL (31.0-37.0); Monocytes # (A) 0.8 k/uL (0-1.0); Monocytes % (A) 7 %; Neutrophils # (A) 8.6 k/uL (1.3-7.7); Neutrophils % (A) 78 %; Platelet Count 144 k/uL (150-450); RBC 4.24 m/uL (4.30-5.90); RDW 14.1 % (11.5-15.5); VLDL Calculation 18.38 mg/dL (5.00-40.00)
--- NOTE | 2023-08-11 12:04 | MR ---
EXAMINATION TYPE: MR brain wo/w con DATE OF EXAM: 08/11/2023 11:13 AM CLINICAL INDICATION:Male, 83 years old with history of seizure; COMPARISON: 05/05/2023 TECHNIQUE: Multi planar, multi sequence imaging was performed through the brain including: T1, T2, In version recovery, susceptibility weighted imaging and gradient echo imaging and Diffusion weighted im aging. The patient was then given intravenous contrast and multi planar, T1 fat-saturation images wer e obtained. IV Contrast: 8 cc Gadavist FINDINGS: Increased DWI signal within the left hippocampus as well as increased FLAIR signal. No evid ence for restricted diffusion. Moderate cerebral atrophy with dilation of ventricular system. Diffus ion-weighted imaging shows no evidence of restricted diffusion to suggest acute/subacute infarct. Int racranial arterial flow voids are maintained. Midline structures show no abnormality. Scattered foci and confluent areas of high T2 signal intensity are seen within the periventricular white matter. The susceptibility weighted images reveals focus of blooming artifact in the right josue compatible with microhemorrhage.. After administration of gadolinium, no abnormal enhancement is seen. The bone marrow signal is within normal limits. Paranasal sinuses and mastoid air cells: No significant paranasal sinus disease. Visualized orbits: Bilaterally aphakia. IMPRESSION: 1. Increased diffusion restriction within the left hippocampus likely sequela of prior seizure. No ev idence of intracranial mass, acute/subacute infarct, or abnormal enhancement. 2. Dilated ventricular system which is stable and felt to be secondary to age-related atrophy. Nonspe cific white matter changes, likely related to small vessel ischemic disease.
[2023-08-11 12:25] LABS: ALT 45 U/L (4-49); AST 60 U/L (17-59); African American GFR (CKD) 63 (>60 ml/min/1.73 sqM); Albumin 3.7 g/dL (3.5-5.0); Alkaline Phosphatase 80 U/L (38-126); Anion Gap 10 mmol/L; Blood Urea Nitrogen 28 mg/dL (9-20); Carbon Dioxide 26 mmol/L (22-30); Chloride 101 mmol/L (98-107); Glucose 96 mg/dL (74-99); Non-African American GFR(CKD) 54 (>60 ml/min/1.73 sqM); Sodium 137 mmol/L (137-145); Total Bilirubin 1.3 mg/dL (0.2-1.3); Total Protein 6.5 g/dL (6.3-8.2)
[2023-08-11] MEDS: DONEPEZIL 10 MG TAB PO SCH (12:53)
--- NOTE | 2023-08-11 13:17 | P.PN ---
Subjective Progress Note Date: 08/11/23 patient is a 83-year-old gentleman with past medical history significant for dementia, hypertension, depression who presented to The ER for altered mental status. Patient last well-known was last evening at 8:30. This morning when his went into the room to check on him, he was found laying on the floor. There was no obvious sign of any trauma. Patient had lost control over his bowel and urine. EMS was called and when they arrived, patient was noted to have jerking of his extremities. Patient history of previous seizures patient was brought to the ER. In the ER patient was found to have flaccid paralysis of right upper extremity and another seizure in front of ER staff. Initial lab work done in the ER showed 11.7, hemoglobin 15.5, platelet count 159, sodium 140, potassium 3.8, BUN 29 creatinine 1.01, AST 45, AST 40 EKG done in the ER showed heart rate of , no ST segment elevation or depression seen, no T-wave inversions seen. Chest x-ray done in the ER CT head done showed no acute intracranial process CT cervical spine done showed no acute cervical spine fracture CTA head and neck done showed heavy calcific plaque of the distal right common carotid and proximal ICA with severe narrowing suggestive of critical stenosis Patient admitted to internal medicine service 08/11. Patient seen and examined. Patient improved a lot compared to yester day, patient is alert, to self, answering questions. Moving all extremities. REVIEW OF SYSTEMS: CONSTITUTIONAL: No fever, no malaise,. CARDIOVASCULAR: No chest pain, no palpitations, no syncope. PULMONARY: No shortness of breath, no cough, GASTROINTESTINAL: No diarrhea, no nausea, no vomiting, no abdominal pain. NEUROLOGICAL: No headaches, no weakness, PHYSICAL EXAMINATION: GENERAL: The patient is alert , not in any acute distress. Well developed, well nourished. HEENT: Pupils are round and equally reacting to light. EOMI. No scleral icterus. No conjunctival pallor. Normocephalic, atraumatic. No pharyngeal erythema. No thyromegaly. CARDIOVASCULAR: S1 and S2 present. No murmurs, rubs, or gallops. PULMONARY: Chest is clear to auscultation, no wheezing or crackles. ABDOMEN: Soft, nontender, nondistended, normoactive bowel sounds. No palpable organomegaly. MUSCULOSKELETAL: No joint swelling or deformity. EXTREMITIES: No cyanosis, clubbing, or pedal edema. NEUROLOGICAL: Gross neurological examination did not reveal any focal deficits. SKIN: No rashes. Assessment and plan Acute metabolic encephalopathy Seizures Right ICA stenosis Monitor vital signs Monitor CBC Monitor CMP Continue telemetry monitoring Fall precautions Seizure precautions Delirium precautions Continue neuro checks Continue aspirin and Lipitor Continue Keppra EEG done showed background slowing suggestive of moderate encephalopathy. No focal slowing or epileptiform activity seen Ordered MRI brain 2-D echo ordered consult neurology Vascular surgery was initially consulted for ICA stenosis but family requesting cardiology to evaluate him Labs and medication were reviewed.. Continue same treatment. Continue with symptomatic treatment. Resume home medication. Monitor labs and vitals. DVT and GI prophylaxis. Further recommendations as per clinical course of the pat ient Dictation was produced using [employer] dictation software. please excuse any grammatical, word or spelling errors. Objective - Vital Signs Vital signs: Vital Signs Temp 97.0 F L 08/11/23 04:00 Pulse 73 08/11/23 04:00 Resp 18 08/11/23 04:00 BP 112/69 08/11/23 04:00 Pulse Ox 93 L 08/11/23 04:00 FiO2 Intake & Output 08/10/23 08/11/23 08/11/23 18:59 06:59 18:59 Intake Total 10 Balance 10 Weight 78.925 kg 78.925 kg Intake: IV 10 0.9 10 Other: Voiding Method Diaper Incontinent # Voids 1 - Labs CBC & Chem 7: 08/11/23 07:10 08/11/23 11:34 Labs: Abnormal Lab Results - Last 24 Hours (Table) 08/10/23 Range/Units 09:28 APTT 21.4 L (22.0-30.0) sec
--- NOTE | 2023-08-11 15:05 | CA ---
Transthoracic Echo Report Name: Farhat Araujo Age: 83 Gender: M : 1940 Exam Date: 08/11/2023 09:34 Exam Location: [facility] Ht (in): 68 Wt (lb): 174 Ordering Physician: Jhon Condon MD Attending/Referring Phys: [employer] Control Lab Tech Francois Chappell Procedure CPT: Indications: CVA Cardiac Hx: Technical Quality: Fair Contrast 1: Total Dose (mL): Contrast 2: Total Dose (mL): MEASUREMENTS (Male / Female) Normal Values 2D ECHO LV Diastolic Diameter PLAX 3.9 cm 4.2 - 5.9 / 3.9 - 5.3 cm LV Systolic Diameter PLAX 2.8 cm IVS Diastolic Thickness 1.2 cm 0.6 - 1.0 / 0.6 - 0.9 cm LVPW Diastolic Thickness 1.2 cm 0.6 - 1.0 / 0.6 - 0.9 cm LV Relative Wall Thickness 0.6 RV Internal Dim ED PLAX 2.5 cm LVOT Diameter 2.1 cm Aortic Root Diameter 3.3 cm LA Systolic Diameter LX 1.3 cm 3.0 - 4.0 / 2.7 - 3.8 cm LV Diastolic Volume MOD BP 37.2 cm??? 67 - 155 / 56 - 104 cm??? LV Systolic Volume MOD BP 19.4 cm??? 22 - 58 / 19 - 49 cm??? LV Ejection Fraction MOD BP 47.9 % >= 55 % LV Cardiac Index MOD BP 554.3 cm???/min???m??? LV Diastolic Volume MOD 4C 35.4 cm??? LV Systolic Volume MOD 4C 16.1 cm??? LV Ejection Fraction MOD 4C 54.5 % LV Cardiac Index MOD 4C 600.2 cm???/min???m??? LV Diastolic Length 4C 6.6 cm LV Systolic Length 4C 6.0 cm LV Diastolic Volume MOD 2C 40.2 cm??? LV Systolic Volume MOD 2C 25.2 cm??? LV Ejection Fraction MOD 2C 37.3 % LV Cardiac Index MOD 2C 466.6 cm???/min???m??? LV Diastolic Length 2C 6.6 cm LV Systolic Length 2C 6.1 cm LA Volume 34.1 cm??? 18 - 58 / 22 - 52 cm??? LA Volume Index 17.4 cm???/m??? 16 - 28 cm???/m??? Ascending Aorta Diameter 3.4 cm DOPPLER AV Peak Velocity 176.2 cm/s AV Peak Gradient 12.4 mmHg LVOT Peak Velocity 87.8 cm/s LVOT Peak Gradient 3.1 mmHg LVOT Velocity Time Integral 17.6 cm LVOT Stroke Volume 60.3 cm??? LVOT Stroke Volume Index 31.3 ml/m??? LVOT Cardiac Index 1876.0 cm???/min???m??? AV Area Cont Eq pk 1.7 cm??? MV Peak Velocity 102.3 cm/s MV Peak Gradient 4.2 mmHg MV Mean Velocity 38.6 cm/s MV Mean Gradient 0.8 mmHg MV Velocity Time Integral 29.4 cm Mitral E Point Velocity 62.1 cm/s Mitral A Point Velocity 99.3 cm/s Mitral E to A Ratio 0.6 MV Deceleration Time 298.0 ms MV E' Velocity 3.4 cm/s Mitral E to MV E' Ratio 18.0 TR Peak Velocity 217.3 cm/s TR Peak Gradient 18.9 mmHg Right Ventricular Systolic Press 23.9 mmHg FINDINGS Left Ventricle Normal LV size and wall thickness. Left ventricular ejection fraction is estimated at 55-60 %. Right Ventricle Normal right ventricular size. Right Atrium Normal right atrial size. Left Atrium Normal left atrial size. Mitral Valve Structurally normal mitral valve. No mitral stenosis. No mitral regurgitation. Aortic Valve Moderate AV calcification. Trace AI. Tricuspid Valve Tricuspid valve not well visualized. Mild TR. Pulmonic Valve Pulmonic valve not well visualized. No pulmonic regurgitation. Pericardium Not well visualized Aorta Normal size aortic root and proximal ascending aorta. CONCLUSIONS Left ventricular ejection fraction 55-60% No mitral regurgitation Moderate aortic calcification without significant aortic stenosis Mild tricuspid regurgitation Previewed by: Dr. Florian Hernandez DO (Electronically Signed) Final Date: 11 August 2023 15:04
--- NOTE | 2023-08-11 15:06 | P.PN ---
Subjective Progress Note Date: 08/11/23 On follow-up with the patient and he is accompanied with his and daughter and according to the the patient condition is better today compared to yesterday. No further seizures. He is still not back to baseline. Objective - Vital Signs Vital signs: Vital Signs Temp 97.0 F L 08/11/23 04:00 Pulse 53 L 08/11/23 12:00 Resp 18 08/11/23 08:00 BP 116/93 08/11/23 12:00 Pulse Ox 97 08/11/23 12:00 FiO2 Intake & Output 08/10/23 08/11/23 08/11/23 18:59 06:59 18:59 Intake Total 10 Balance 10 Weight 78.925 kg 78.925 kg Intake: IV 10 0.9 10 Other: Voiding Method Diaper Diaper Incontinent Incontinent # Voids 1 - Exam General: Lying in bed and is not in acute distress. Neuro: Limited because of his overall condition. Patient is awake alert and he stated "I don't care" and "leave me alone". Seems more awake today compared to yesterday and more responsive and look around the right and left having more interaction today compared to yesterday. Conner did very minimal simple commands and that's after multiple tries which she raises her arms above gravity. No facial weakness. No dysarthria from limited language. Motor the strength is limited assessment because of his cooperation but was able to lift of bilateral upper extremity above gravity. According to ED physician a code stroke was activated Patient NIH stroke scale was 3-4 for right upper 70 paralysis. CTA head is reported as no intracranial major vascular occlusion, hemodynamically significant stenosis or sizable aneurysm detected in the limits of CTA. CTA neck: It is reported as heavy calcified plaque distal right common carotid and proximal ICA with severe narrowing suggesting critical stenosis. Moderate was calcified plaque in the left carotid bifurcation and proximal left ICA was 50% diameter stenosis of the proximal left ICA. Most calcified plaque results in the mild to moderate stenosis in the proximal right external carotid artery bilaterally. Three-vessel aortic arch plus the left vertebral artery appears to arise directly from the arch. Close to the takeoff of the left vertebral there is a dense calcified plaque is significant stenosis cannot be excluded. Right vertebral artery shows dense calcific the plaque very close to the origin in the potentially significant stenosis cannot be excluded. The right vertebral is dominant. No evidence of dissection or pseudoaneurysm in the neck. Routine EEG is abnormal. The background slowing suggestive of moderate encephalopathy. There is no focal slowing, epileptiform discharges or seizure on the EEG - Labs CBC & Chem 7: 08/11/23 07:10 08/11/23 11:34 Labs: Abnormal Lab Results - Last 24 Hours (Table) 08/11/23 08/11/23 Range/Units 07:10 11:34 WBC 11.0 H (3.8-10.6) k/uL RBC 4.24 L (4.30-5.90) m/uL Plt Count 144 L (150-450) k/uL Neutrophils # 8.6 H (1.3-7.7) k/uL BUN 28 H (9-20) mg/dL AST 60 H (17-59) U/L Assessment and Plan Assessment: This is an 83 y/o gentleman with history of moderate dementia who had possible TIA in 04/2023 with speech difficulty and while in ED had seizure like activity but was not started on seizure medication who presents because was found unresponsive at home. He had seizure like activity. While in ED this visit he had another seizure-like activity witnessed by ED with GTC. He had blood around mouth and urinary incontinence. He also has right upper extremity weakness. Breakthrough seizure-like. 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 Right ICA stenosis critical severe stenosis on CTA while the left is 60% Left vertebral artery on CTA cannot exclude plaque or significant stenosis History of dementia Hard of hearing History of coronary artery disease Plan: MRI from without to with and without is completed and pending report. I feel there is no acute or subacute stroke and there is signal foreign exchange services manager the left medial temporal/hippocampus signifying seizure. But will wait for official report. Patient was placed on Keppra 1000mg bid IV by ED and will leave the same dose for now until work-up is complete and patient condition improves then will consider lowering to lower dose since was not on antiepileptic drugs prior to this. Primary team consulted Dr. Osborn for the patient's carotid stenosis in which the patient is known to him. seizure precaution and pads. Placed on ASA 325mg daily (was on 81mg daily at home) and Lipitor 40mg qhs. Patient is on Eliquis 2.5mg bid at home. Will defer the rest of medical management to the primary team. Upon discharge recommend the patient to follow-up with a neurologist as an outpatient within 1-2 weeks The plan is discussed with patient's and daughter who are at bedside. Also discussed with primary team. Time with Patient: Less than 30
[2023-08-11 15:24] LABS: Appearance,Urine Turbid (Clear); Bilirubin,Urine Negative (Negative); Blood,Urine Trace (Negative); Color,Urine Yellow; Glucose,Urine (UA) Negative (Negative); Ketones,Urine Negative (Negative); Leukocyte Esterase,Urine Large (Negative); Mucus,Urine Occasional /hpf; Nitrite,Urine Positive (Negative); Protein,Urine 3+ (Negative); RBC,Urine 17 /hpf (0-5); Specific Gravity,Urine 1.031 (1.001-1.035); Triple Phosphate Crystal,Urine Moderate /hpf; Urobilinogen,Urine <2.0 mg/dL (<2.0); WBC,Urine >182 /hpf (0-5)
[2023-08-11 15:55] LABS: Amphetamine Screen,Urine Not Detected (NotDetected); Barbiturate Screen,Urine Not Detected (NotDetected); Benzodiazepines Screen,Urine Detected (NotDetected); Cocaine Screen,Urine Not Detected (NotDetected); Methadone Screen, Urine Not Detected (NotDetected); Opiate Screen,Urine Not Detected (NotDetected); Oxycodone Screen, Urine Not Detected (NotDetected); Phencyclidine Screen,Urine Not Detected (NotDetected); Tricyclic Antidepressant,Urine Not Detected (NotDetected); Urn Cannabinoid Scrn Not Detected (NotDetected)
[2023-08-11] MEDS: SERTRALINE 50 MG TAB PO SCH (21:02)
[2023-08-11] MEDS: ATORVASTATIN 40 MG TAB PO SCH (21:02)
[2023-08-11] MEDS: LATANOPROST 0.005% OPHTH DROPS 2.5 ML BTL BOTH EYES SCH (22:21)
[2023-08-12] MEDS: PANTOPRAZOLE 40 MG TABLET PO SCH ×2 (06:30→16:43)
[2023-08-12] MEDS: DONEPEZIL 10 MG TAB PO SCH (08:37)
[2023-08-12] MEDS: TAMSULOSIN 0.4 MG CAP.ER.24H PO SCH (08:38)
[2023-08-12] MEDS: METOPROLOL TARTRATE 25 MG TAB PO SCH ×2 (08:38→20:09)
[2023-08-12] MEDS: ASPIRIN 325 MG TAB PO SCH (08:38)
[2023-08-12] MEDS: TIMOLOL 0.5% OPHTH DROPS 5 ML BTL BOTH EYES SCH ×2 (08:38→20:10)
[2023-08-12] MEDS: DORZOLAMIDE HCL 2% DROPS 10 ML BTL BOTH EYES SCH ×2 (08:39→20:10)
[2023-08-12 08:42] LABS: Basophils # (A) 0.04 X 10*3/uL (0.00-0.10); Basophils % (A) 0.4 %; Eosinophils # (A) 0.19 X 10*3/uL (0.04-0.35); Eosinophils % (A) 1.8 %; HCT 43.7 % (39.6-50.0); HGB 14.5 g/dL (13.0-17.0); Lymphocytes # (A) 1.85 X 10*3/uL (0.90-5.00); Lymphocytes % (A) 17.6 %; MCH 30.9 pg (27.0-32.0); MCHC 33.2 g/dL (32.0-37.0); Mean Platelet Volume 11.1 FL (9.5-12.2); Monocytes # (A) 0.97 X 10*3/uL (0.20-1.00); Monocytes % (A) 9.2 %; NRBC Per 100 WBC 0 X 10*3/uL (0.00-0.01); Neutrophils # (A) 7.44 X 10*3/uL (1.80-7.70); Neutrophils % (A) 70.6 %; Platelet Count 158 X 10*3/uL (140-440); RDW 14.1 % (11.5-14.5); WBC 10.53 X 10*3/uL (4.50-10.00)
[2023-08-12] MEDS: levETIRAcetam IV 500 MG/5 ML VIAL IVP SCH (09:08)
[2023-08-12 12:07] LABS: ALT 46 U/L (10-49); AST 53 U/L (14-35); Albumin 3.9 g/dL (3.8-4.9); Alkaline Phosphatase 77 U/L (41-126); BUN/Creat Ratio 24.82 Ratio (12.00-20.00); Blood Urea Nitrogen 27.3 mg/dL (9.0-27.0); Calcium 9.3 mg/dL (8.7-10.3); Carbon Dioxide 26.7 mmol/L (21.6-31.8); Chloride 103 mmol/L (96-109); Globulin 2.6 g/dL (1.6-3.3); Glucose 97 mg/dL (70-110); Potassium 4.1 mmol/L (3.5-5.5); Sodium 140 mmol/L (135-145); Total Bilirubin 1.2 mg/dL (0.3-1.2); Total Protein 6.5 g/dL (6.2-8.2)
--- NOTE | 2023-08-12 12:18 | P.PN ---
Subjective Progress Note Date: 08/12/23 patient is a 83-year-old gentleman with past medical history significant for dementia, hypertension, depression who presented to The ER for altered mental status. Patient last well-known was last evening at 8:30. This morning when his went into the room to check on him, he was found laying on the floor. There was no obvious sign of any trauma. Patient had lost control over his bowel and urine. EMS was called and when they arrived, patient was noted to have jerking of his extremities. Patient history of previous seizures patient was brought to the ER. In the ER patient was found to have flaccid paralysis of right upper extremity and another seizure in front of ER staff. Initial lab work done in the ER showed 11.7, hemoglobin 15.5, platelet count 159, sodium 140, potassium 3.8, BUN 29 creatinine 1.01, AST 45, AST 40 EKG done in the ER showed heart rate of , no ST segment elevation or depression seen, no T-wave inversions seen. Chest x-ray done in the ER CT head done showed no acute intracranial process CT cervical spine done showed no acute cervical spine fracture CTA head and neck done showed heavy calcific plaque of the distal right common carotid and proximal ICA with severe narrowing suggestive of critical stenosis Patient admitted to internal medicine service 08/11. Patient seen and examined. Patient improved a lot compared to yester day, patient is alert, to self, answering questions. Moving all extremities. 08/12. Patient seen and examined. MRI brain done showed increased diffusion restriction within the left hypo-campus likely result of prior seizures, no evidence of intracranial mass, acute/subacute infarct. Not Complaining of urinary hesitancy urgency or incontinence. Discussed with patient's in detail, was at the bedside, she is overwhelmed at the thought of patient going to rehab, counseled her in detail regarding the need for him to go to rehab. REVIEW OF SYSTEMS: CONSTITUTIONAL: No fever, no malaise,. CARDIOVASCULAR: No chest pain, no palpitations, no syncope. PULMONARY: No shortness of breath, no cough, GASTROINTESTINAL: No diarrhea, no nausea, no vomiting, no abdominal pain. NEUROLOGICAL: No headaches, no weakness, PHYSICAL EXAMINATION: GENERAL: The patient is alert , not in any acute distress. Well developed, well nourished. HEENT: Pupils are round and equally reacting to light. EOMI. No scleral icterus. No conjunctival pallor. Normocephalic, atraumatic. No pharyngeal erythema. No thyromegaly. CARDIOVASCULAR: S1 and S2 present. No murmurs, rubs, or gallops. PULMONARY: Chest is clear to auscultation, no wheezing or crackles. ABDOMEN: Soft, nontender, nondistended, normoactive bowel sounds. No palpable organomegaly. MUSCULOSKELETAL: No joint swelling or deformity. EXTREMITIES: No cyanosis, clubbing, or pedal edema. NEUROLOGICAL: Gross neurological examination did not reveal any focal deficits. SKIN: No rashes. Assessment and plan Acute metabolic encephalopathy Seizures Right ICA stenosis Monitor vital signs Monitor CBC Monitor CMP Continue telemetry monitoring Fall precautions Seizure precautions Delirium precautions Continue neuro checks Continue aspirin and Lipitor Continue Keppra EEG done showed background slowing suggestive of moderate encephalopathy. No focal slowing or epileptiform activity seen MRI brain done showed increased diffusion restriction within the left hypo- campus likely result of prior seizures, no evidence of intracranial mass, acute/subacute infarct Repeat UA 2-D echo showed LVEF of 55-60%, no mitral regurg, moderate aortic calcification without significant aortic stenosis Neurology following Vascular surgery was initially consulted for ICA stenosis but family requesting cardiology to evaluate him. Cardiology consulted at patient's family request Labs and medication were reviewed.. Continue same treatment. Continue with symptomatic treatment. Resume home medication. Monitor labs and vitals. DVT and GI prophylaxis. Further recommendations as per clinical course of the patient Dictation was produced using [employer] dictation software. please excuse any grammatical, word or spelling errors. Objective - Vital Signs Vital signs: Vital Signs Temp 99.0 F 08/12/23 08:00 Pulse 51 L 08/12/23 08:00 Resp 18 08/12/23 08:00 BP 159/71 08/12/23 08:00 Pulse Ox 93 L 08/12/23 08:00 FiO2 Intake & Output 08/11/23 08/12/23 08/12/23 18:59 06:59 18:59 Intake Total 50 Output Total 100 Balance -50 Intake: Oral 50 Output: Urine 100 Other: Voiding Method Diaper Incontinent Toilet Incontinent External Catheter Diaper Incontinent External Catheter # Voids 2 1 - Labs CBC & Chem 7: 08/12/23 05:56 08/12/23 05:56 Labs: Abnormal Lab Results - Last 24 Hours (Table) 08/11/23 08/11/23 08/11/23 Range/Units 07:10 08:31 11:34 WBC 11.0 H (3.8-10.6) k/uL RBC 4.24 L (4.30-5.90) m/uL Plt Count 144 L (150-450) k/uL Neutrophils # 8.6 H (1.3-7.7) k/uL BUN 28 H (9-20) mg/dL AST 60 H (17-59) U/L Urine Protein 3+ H (Negative) Urine Blood Trace H (Negative) Ur Leukocyte Esterase Large H (Negative) Urine RBC 17 H (0-5) /hpf Urine WBC >182 H (0-5) /hpf Urine WBC Clumps Many H (None) /hpf Triple Phos Crystals Moderate H (None) /hpf Urine Mucus Occasional H (None) /hpf U Benzodiazepines Scrn Detected H (NotDetected) 08/12/23 Range/Units 05:56 WBC 10.53 H (3.8-10.6) k/uL RBC (4.30-5.90) m/uL Plt Count (150-450) k/uL Neutrophils # (1.3-7.7) k/uL BUN (9-20) mg/dL AST (17-59) U/L Urine Protein (Negative) Urine Blood (Negative) Ur Leukocyte Esterase (Negative) Urine RBC (0-5) /hpf Urine WBC (0-5) /hpf Urine WBC Clumps (None) /hpf Triple Phos Crystals (None) /hpf Urine Mucus (None) /hpf U Benzodiazepines Scrn (NotDetected)
--- NOTE | 2023-08-12 15:03 | P.PN ---
Subjective Progress Note Date: 08/12/23 I am following-up with patient and no further seizures. Patient is accompanied with his and feels he is improving. No new neurological issues. Objective - Vital Signs Vital signs: Vital Signs Temp 99.0 F 08/12/23 08:00 Pulse 51 L 08/12/23 08:00 Resp 18 08/12/23 08:00 BP 159/71 08/12/23 08:00 Pulse Ox 93 L 08/12/23 08:00 FiO2 Intake & Output 08/11/23 08/12/23 08/12/23 18:59 06:59 18:59 Intake Total 50 Output Total 100 Balance -50 Intake: Oral 50 Output: Urine 100 Other: Voiding Method Diaper Incontinent Toilet Incontinent External Catheter Diaper Incontinent External Catheter # Voids 2 1 - Exam General: Lying in bed and is not in acute distress. Neuro: Limited because of his overall condition. Patient is awake alert and he stated his name. He followed rare simple commands and that is after multiple attempts (showing thumbs up). No facial weakness. No dysarthria from limited language Motor the strength is limited assessment because of his cooperation but was able to lift of bilateral upper extremity above gravity. Some of the work-up during this hospital visit consisted of: Urine analysis seems possible suggestive of acute UTI. CTA head is reported as no intracranial major vascular occlusion, hemodynamically significant stenosis or sizable aneurysm detected in the limits of CTA. CTA neck: It is reported as heavy calcified plaque distal right common carotid and proximal ICA with severe narrowing suggesting critical stenosis. Moderate was calcified plaque in the left carotid bifurcation and proximal left ICA was 50% diameter stenosis of the proximal left ICA. Most calcified plaque results in the mild to moderate stenosis in the proximal right external carotid artery bilaterally. Three-vessel aortic arch plus the left vertebral artery appears to arise directly from the arch. Close to the takeoff of the left vertebral there is a dense calcified plaque is significant stenosis cannot be excluded. Right vertebral artery shows dense calcific the plaque very close to the origin in the potentially significant stenosis cannot be excluded. The right vertebral is dominant. No evidence of dissection or pseudoaneurysm in the neck. Routine EEG is abnormal. The background slowing suggestive of moderate encephalopathy. There is no focal slowing, epileptiform discharges or seizure on the EEG MRI the brain is reported as increased diffusion restriction within the left hi ppocampus likely sequela of prior seizure. No evidence of intracranial mass, acute/subacute infarct or abnormal enhancement. Dilated ventricular system which is stable and felt to be secondary due to age-related atrophy. Nonspecific white matter changes, likely related to small vessel ischemic di sease. I personally reviewed the MRI and agree with report. - Labs CBC & Chem 7: 08/12/23 05:56 08/12/23 05:56 Labs: Abnormal Lab Results - Last 24 Hours (Table) 08/11/23 08/12/23 08/12/23 Range/Units 08:31 05:56 05:56 WBC 10.53 H (4.50-10.00) X 10*3/uL BUN 27.3 H (9.0-27.0) mg/dL BUN/Creatinine Ratio 24.82 H (12.00-20.00) Ratio AST 53 H (14-35) U/L Albumin/Globulin Ratio 1.50 L (1.60-3.17) Ratio Urine Protein 3+ H (Negative) Urine Blood Trace H (Negative) Ur Leukocyte Esterase Large H (Negative) Urine RBC 17 H (0-5) /hpf Urine WBC >182 H (0-5) /hpf Urine WBC Clumps Many H (None) /hpf Triple Phos Crystals Moderate H (None) /hpf Urine Mucus Occasional H (None) /hpf U Benzodiazepines Scrn Detected H (NotDetected) Assessment and Plan Assessment: This is an 83 y/o gentleman with history of moderate dementia who had possible TIA in 04/2023 with speech difficulty and while in ED had seizure like activity but was not started on seizure medication who presents because was found unresponsive at home. He had seizure like activity. While in ED this visit he had another seizure-like activity witnessed by ED with GTC. He had blood around mouth and urinary incontinence. He also has right upper extremity weakness. Breakthrough seizure-like. 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 Right ICA stenosis critical severe stenosis on CTA while the left is 60% Left vertebral artery on CTA cannot exclude plaque or significant stenosis Possible acute UTI History of dementia Hard of hearing History of coronary artery disease Plan: MRI the brain is reported as increased diffusion restriction within the left h ippocampus likely sequela of prior seizure. No evidence of intracranial mass, acute/subacute infarct or abnormal enhancement. Personally reviewed the MRI and agree there is no acute or subacute ischemia. I agree there is increased diffusion restriction within the left hippocampus likely as a result of the seizure. Recommend down the line as an outpatient to the obtained a repeat MRI and that can be done within 4 weeks as an outpatient to assess if any change. Patient was placed on Keppra 1000mg bid IV during this admission and I changed it to was not on antiepileptic drugs prior to this 750mg bid PO. Decrease dose since was not on antiepileptic drug prior to this and avoid side-effects of large dose. Primary team consulted Dr. Osborn for the patient's carotid stenosis in which the patient is known to him. seizure precaution and pads. Placed on ASA 325mg daily (was on 81mg daily at home) and Lipitor 40mg qhs. Patient is on Eliquis 2.5mg bid at home and will defer restart of medication to primary team. Will defer the rest of medical management to the primary team. Upon discharge recommend the patient to follow-up with a neurologist as an outpatient within 1-2 weeks. The plan is discussed with patient's and daughter. Also discussed with primary team. There is no further neurological work-up. If continues to be seizure-free then he is clear from neurological perspective. Time with Patient: Less than 30
[2023-08-12] MEDS: ATORVASTATIN 40 MG TAB PO SCH (20:09)
[2023-08-12] MEDS: APIXABAN 2.5 MG TABLET PO SCH (20:09)
[2023-08-12] MEDS: levETIRAcetam 250 MG TAB PO SCH (20:10)
[2023-08-12] MEDS: LATANOPROST 0.005% OPHTH DROPS 2.5 ML BTL BOTH EYES SCH (20:10)
[2023-08-12] MEDS: SERTRALINE 50 MG TAB PO SCH (20:10)
--- NOTE | 2023-08-12 21:09 | P.CRDCN ---
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 History is supplied by patient as well as . Apparently patient has been having some progressive dementia and went to check on him and patient was found laying on the floor. Does not appear he had tripped or fallen and patient had some loss of bowel and urine and he was noted to have some jerking of his extremities. Patient did have prior more significant seizure activity in April. Patient was noted to have weakness of his right upper extremity and had a witnessed seizure in the ER and was started on antiepileptics. Patient underwent neurologic workup with CTA perf ormed which showed concern of right internal carotid artery stenosis which is similar to imaging from April. In April the carotid ultrasound showed more moderate stenosis and patient had followed up with Dr. Osborn with possible medical therapy. Patient eventually underwent brain MRI yesterday which showed no stroke and concern of changes consistent with seizure. EKG showing sinus rhythm, normal axis, no significant ST or T-wave abnormalities. REVIEW OF SYSTEMS At the time of my exam: CONSTITUTIONAL: Denies fever or chills. CARDIOVASCULAR: Denies chest pain, shortness of breath, orthopnea, PND or palpitations. RESPIRATORY: Denies cough. GASTROINTESTINAL: Denies abdominal pain, diarrhea, constipation, nausea or vomiting. MUSCULOSKELETAL: Denies myalgias. NEUROLOGIC: Denies numbness, tingling or weakness. ENDOCRINE: Denies fatigue, weight change, polydipsia or polyurina. GENITOURINARY: Denies burning, hematuria or urgency with micturation. HEMATOLOGIC: Denies history of anemia or bleeding. PHYSICAL EXAMINATION Vital signs reviewed. CONSTITUTIONAL: No apparent distress. HEENT: Head is normocephalic. Pupils are equal, round. Sclerae anicteric. Mucous membranes of the mouth are moist. No JVD. No carotid bruit. CHEST EXAMINATION: Lungs are clear to auscultation. No chest wall tenderness is noted on palpation or with deep breathing. HEART EXAMINATION: Regular rate and rhythm. S1, S2 heard. No murmurs, gallops or rub. ABDOMEN: Soft, nontender. Positive bowel sounds. EXTREMITIES: 2+ peripheral pulses, no lower extremity edema and no calf tenderness. NEUROLOGIC EXAMINATION: Patient is awake, alert and oriented x3. ASSESSMENT 1. Acute onset of altered mental status with seizure-like activity appears most consistent with seizures 2. Right upper extremity weakness, not related to right internal carotid artery stenosis 3. 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 Hypertension 5. Hyperlipidemia 6. COPD PLAN Acute onset of altered mental status with seizure-like activity and some residual right upper extremity weakness. 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 Right internal carotid artery would not explain any right- sided symptoms. Therefore recommend treating carotid artery is asymptomatic carotid artery stenosis. There was some previous discrepancy between ultrasound and CTA. If warranted could consider angiogram however after discussion with daughter and we will proceed with medical therapy at this time. He has been on anticoagulation at this time with Eliquis 2.5mg bid and continue for now, reevaluate in the office. Follow-up with Dr. Osborn as outpatient in 1-2 weeks. No further recommendations from cardiology standpoint. Please call with questions. Past Medical History Past Medical History: Cancer, COPD, GERD/Reflux, Hearing Disorder / Deafness, Hyperlipidemia, Hypertension, Myocardial Infarction (SD), Neurologic Disorder, Osteoarthritis (OA), Prostate Disorder Additional Past Medical History / Comment(s): PROSATE CA (2008) RADIATION [place]. HX OF TIA. 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 URINARY CALCULI. Last Myocardial Infarction Date:: 2020 History of Any Multi-Drug Resistant Organisms: None Reported Past Surgical History: Adenoidectomy, Back Surgery, Joint Replacement, Orthopedic Surgery, Tonsillectomy Additional Past Surgical History / Comment(s): LITHOTRIPSY. BACK OR (1987 & 1997). BILATERAL REVERSE SOCKET OF SHOULDERS. Past Anesthesia/Blood Transfusion Reactions: No Reported Reaction Smoking Status: Unknown if ever smoked Medications and Allergies Home Medications Medication Instructions Recorded Confirmed Type Esomeprazole Magnesium [NexIUM] 40 mg PO DAILY 02/11/14 08/10/23 History amLODIPine BESYLATE [Norvasc] 5 mg PO DAILY 02/11/14 08/10/23 History Dorzolamide HCl/Pf [Dorzolamide 2% 1 drop BOTH EYES BID 12/11/20 08/10/23 History Eye Drop] Fosinopril Sodium [Monopril] 20 mg PO DAILY 12/11/20 08/10/23 History Sertraline [Zoloft] 150 mg PO HS 12/11/20 08/10/23 History Timolol [Betimol 0.5% Ophth Soln] 1 drop BOTH EYES BID 12/11/20 08/10/23 History Apixaban [Eliquis] 2.5 mg PO BID tablet 12/15/20 08/10/23 Rx Aspirin EC [Ecotrin Low Dose] 81 mg PO DAILY 09/15/21 08/10/23 History Latanoprost [Xalatan 0.005%] 1 drop BOTH EYES HS 09/15/21 08/10/23 History Atorvastatin [Lipitor] 40 mg PO HS 05/03/23 08/10/23 History Donepezil [Aricept] 10 mg PO DAILY 05/03/23 08/10/23 History Metoprolol Tartrate [Lopressor] 25 mg PO BID 08/10/23 08/10/23 History Tamsulosin [Flomax] 0.4 mg PO DAILY 08/10/23 08/10/23 History Allergies Allergy/AdvReac Type Severity Reaction Status Date / Time No Known Allergies Allergy Verified 08/10/23 11:25 Physical Exam Vitals: Vital Signs Temp Pulse Resp BP Pulse Ox 08/12/23 18:40 98.0 F 61 18 135/74 92 L 08/12/23 14:00 97.8 F 58 L 18 90/53 92 L 08/12/23 08:00 99.0 F 51 L 18 159/71 93 L 08/12/23 01:00 98.6 F 59 L 18 124/75 94 L Intake and Output 08/12/23 08/12/23 08/12/23 06:59 14:59 22:59 Intake Total 240 Balance 240 Intake: Oral 240 Other: Voiding Method Toilet Toilet Diaper Diaper Incontinent External Catheter # Voids 1 1 Results 08/12/23 05:56 08/12/23 05:56 Cardiac Enzymes 08/12/23 Range/Units 05:56 AST 53 H (14-35) U/L CBC 08/12/23 Range/Units 05:56 WBC 10.53 H (4.50-10.00) X 10*3/uL RBC 4.70 (4.40-5.60) X 10*6/uL Hgb 14.5 (13.0-17.0) g/dL Hct 43.7 (39.6-50.0) % Plt Count 158 (140-440) X 10*3/uL Comprehensive Metabolic Panel 08/12/23 Range/Units 05:56 Sodium 140 (135-145) mmol/L Potassium 4.1 (3.5-5.5) mmol/L Chloride 103 (96-109) mmol/L Carbon Dioxide 26.7 (21.6-31.8) mmol/L BUN 27.3 H (9.0-27.0) mg/dL Creatinine 1.1 (0.6-1.5) mg/dL Glucose 97 (70-110) mg/dL Calcium 9.3 (8.7-10.3) mg/dL AST 53 H (14-35) U/L ALT 46 (10-49) U/L Alkaline Phosphatase 77 (41-126) U/L Total Protein 6.5 (6.2-8.2) g/dL Albumin 3.9 (3.8-4.9) g/dL Current Medications Generic Name Dose Route Start Last Admin Trade Name Freq PRN Reason Stop Dose Admin Amlodipine Besylate 5 mg 08/13/23 09:00 Amlodipine 5 Mg Tab PO DAILY АННА Apixaban 2.5 mg 08/12/23 21:00 08/12/23 20:09 Apixaban 2.5 Mg Tablet PO 2.5 mg BID АННА Administration Protocol Aspirin 325 mg 08/11/23 09:00 08/12/23 08:38 Aspirin 325 Mg Tab PO 325 mg DAILY АННА Administration Atorvastatin Calcium 40 mg 08/10/23 21:00 08/12/23 20:09 Atorvastatin 40 Mg Tab PO 40 mg HS АННА Administration Donepezil HCl 10 mg 08/10/23 20:00 08/12/23 08:37 Donepezil 10 Mg Tab PO 10 mg DAILY АННА Administration Dorzolamide HCl 1 drops 08/10/23 21:00 08/12/23 20:10 Dorzolamide Hcl 2% Drops 10 Ml Btl BOTH EYES 1 drops BID АННА Administration Hydralazine HCl 10 mg 08/10/23 13:16 Hydralazine Hcl 20 Mg/Ml 1 Ml Vial IVP Q6HR PRN Blood Pressure - High Latanoprost 1 drops 08/10/23 21:00 08/12/23 20:10 Latanoprost 0.005% Ophth Drops 2.5 Ml Btl BOTH EYES 1 drops HS АННА Administration Levetiracetam 750 mg 08/12/23 21:00 08/12/23 20:10 Levetiracetam 250 Mg Tab PO 750 mg Q12HR АННА Administration Lorazepam 1 mg 08/10/23 15:02 Lorazepam 2 Mg/Ml Inj IV Q4HR PRN Seizures Metoprolol Tartrate 25 mg 08/10/23 21:00 08/12/23 20:09 Metoprolol Tartrate 25 Mg Tab PO 25 mg BID АННА Administration Pantoprazole Sodium 40 mg 08/11/23 07:30 08/12/23 16:43 Pantoprazole 40 Mg Tablet PO 40 mg AC-BID АННА Administration Sertraline HCl 150 mg 08/10/23 21:00 08/12/23 20:10 Sertraline 50 Mg Tab PO 150 mg HS АННА Administration Tamsulosin HCl 0.4 mg 08/10/23 20:00 08/12/23 08:38 Tamsulosin 0.4 Mg Cap.Er.24h PO 0.4 mg DAILY АННА Administration Timolol Maleate 1 drops 08/10/23 21:00 08/12/23 20:10 Timolol 0.5% Ophth Drops 5 Ml Btl BOTH EYES 1 drops BID АННА Administration Intake and Output 08/12/23 08/12/23 08/12/23 06:59 14:59 22:59 Intake Total 240 Balance 240 Intake: Oral 240 Other: Voiding Method Toilet Toilet Diaper Diaper Incontinent External Catheter # Voids 1 1 08/12/23 05:56 08/12/23 05:56
[2023-08-13 04:13] LABS: Appearance,Urine Cloudy (Clear); Bacteria,Urine Many /hpf; Bilirubin,Urine Negative (Negative); Blood,Urine Small (Negative); Color,Urine Yellow; Glucose,Urine (UA) Negative (Negative); Hyaline Casts,Urine 3 /lpf (0-2); Ketones,Urine Negative (Negative); Leukocyte Esterase,Urine Large (Negative); Mucus,Urine Occasional /hpf; Nitrite,Urine Positive (Negative); Protein,Urine Trace (Negative); RBC,Urine 9 /hpf (0-5); Specific Gravity,Urine 1.021 (1.001-1.035); Squamous Epithelial Cell,Urine <1 /hpf (0-4); Urobilinogen,Urine <2.0 mg/dL (<2.0); WBC,Urine >182 /hpf (0-5)
[2023-08-13] MEDS: PANTOPRAZOLE 40 MG TABLET PO SCH ×2 (06:53→17:00)
[2023-08-13] MEDS: DONEPEZIL 10 MG TAB PO SCH (08:36)
[2023-08-13] MEDS: METOPROLOL TARTRATE 25 MG TAB PO SCH ×2 (08:36→19:48)
[2023-08-13] MEDS: ASPIRIN 325 MG TAB PO SCH (08:36)
[2023-08-13] MEDS: amLODIPine 5 MG TAB PO SCH (08:36)
[2023-08-13] MEDS: APIXABAN 2.5 MG TABLET PO SCH ×2 (08:36→19:47)
[2023-08-13] MEDS: TAMSULOSIN 0.4 MG CAP.ER.24H PO SCH (08:36)
[2023-08-13] MEDS: levETIRAcetam 250 MG TAB PO SCH ×2 (08:37→19:48)
[2023-08-13] MEDS: DORZOLAMIDE HCL 2% DROPS 10 ML BTL BOTH EYES SCH ×2 (08:42→19:49)
[2023-08-13] MEDS: TIMOLOL 0.5% OPHTH DROPS 5 ML BTL BOTH EYES SCH ×2 (09:20→19:48)
--- NOTE | 2023-08-13 11:33 | P.PN ---
Subjective Progress Note Date: 08/13/23 I am following-up with patient and is accompanied with his . No further seizures. Per , patient is doing drastically better from neurological perspective and is at baseline. Objective - Vital Signs Vital signs: Vital Signs Temp 97.8 F 08/13/23 07:10 Pulse 66 08/13/23 08:33 Resp 17 08/13/23 07:10 BP 131/78 08/13/23 08:35 Pulse Ox 96 08/13/23 08:33 FiO2 Intake & Output 08/12/23 08/13/23 08/13/23 18:59 06:59 18:59 Intake Total 240 Balance 240 Intake: Oral 240 Other: Voiding Method Toilet Toilet Diaper Diaper Incontinent External Catheter # Voids 1 1 1 - Exam General: Sitting in a recliner chair and is not in acute distress. Neuro: Limited because of his overall condition. Patient is awake alert and he stated his name and 's name. Upon asking him for current year and month he stated his date of . He followed some simple commands. Language is limited but better than yesterday and no aphasia from limited language. No facial weakness. No dysarthria from limited language Motor the strength is lifting all extremities above gravity symmetrically. Some of the work-up during this hospital visit consisted of: Urine analysis seems possible suggestive of acute UTI. CTA head is reported as no intracranial major vascular occlusion, hemodynamically significant stenosis or sizable aneurysm detected in the limits of CTA. CTA neck: It is reported as heavy calcified plaque distal right common carotid and proximal ICA with severe narrowing suggesting critical stenosis. Moderate was calcified plaque in the left carotid bifurcation and proximal left ICA was 50% diameter stenosis of the proximal left ICA. Most calcified plaque results in the mild to moderate stenosis in the proximal right external carotid artery bilaterally. Three-vessel aortic arch plus the left vertebral artery appears to arise directly from the arch. Close to the takeoff of the left vertebral there is a dense calcified plaque is significant stenosis cannot be excluded. Right vertebral artery shows dense calcific the plaque very close to the origin in the potentially significant stenosis cannot be excluded. The right vertebral is dominant. No evidence of dissection or pseudoaneurysm in the neck. Routine EEG is abnormal. The background slowing suggestive of moderate encephalopathy. There is no focal slowing, epileptiform discharges or seizure on the EEG MRI the brain is reported as increased diffusion restriction within the left hippocampus likely sequela of prior seizure. No evidence of intracranial mass, acute/subacute infarct or abnormal enhancement. Dilated ventricular system which is stable and felt to be secondary due to age-related atrophy. Nonspecific white matter changes, likely related to small vessel ischemic disease. I personally reviewed the MRI and agree with report. - Labs CBC & Chem 7: 08/12/23 05:56 08/12/23 05:56 Labs: Abnormal Lab Results - Last 24 Hours (Table) 08/12/23 08/13/23 Range/Units 05:56 03:50 BUN 27.3 H (9.0-27.0) mg/dL BUN/Creatinine Ratio 24.82 H (12.00-20.00) Ratio AST 53 H (14-35) U/L Albumin/Globulin Ratio 1.50 L (1.60-3.17) Ratio Urine Protein Trace H (Negative) Urine Blood Small H (Negative) Ur Leukocyte Esterase Large H (Negative) Urine RBC 9 H (0-5) /hpf Urine WBC >182 H (0-5) /hpf Urine Bacteria Many H (None) /hpf Hyaline Casts 3 H (0-2) /lpf Urine Mucus Occasional H (None) /hpf Assessment and Plan Assessment: This is an 83 y/o gentleman with history of moderate dementia who had possible TIA in 04/2023 with speech difficulty and while in ED had seizure like activity but was not started on seizure medication who presents because was found u nresponsive at home. He had seizure like activity. While in ED this visit he had another seizure-like activity witnessed by ED with GTC. He had blood around mouth and urinary incontinence. He also has right upper extremity weakness. Breakthrough seizure-like. 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 Right ICA stenosis critical severe stenosis on CTA while the left is 60% Left vertebral artery on CTA cannot exclude plaque or significant stenosis Possible acute UTI History of dementia Hard of hearing History of coronary artery disease Plan: MRI the brain is reported as increased diffusion restriction within the left hippocampus likely sequela of prior seizure. No evidence of intracranial mass, acute/subacute infarct or abnormal enhancement. Personally reviewed the MRI and agree there is no acute or subacute ischemia. I agree there is increased diffusion restriction within the left hippocampus likely as a result of the sei zure. Recommend down the line as an outpatient to the obtained a repeat MRI and that can be done within 4 weeks as an outpatient to assess if any change. Patient was placed on Keppra 1000mg bid IV during this admission and I changed it to was not on antiepileptic drugs prior to this 750mg bid PO. Decrease dose since was not on antiepileptic drug prior to this and avoid side-effects of large dose. Primary team consulted Dr. Osborn for the patient's carotid stenosis in which the patient is known to him. seizure precaution and pads. Placed on ASA 325mg daily (was on 81mg daily at home) and Lipitor 40mg qhs. Patient is on Eliquis 2.5mg bid at home and was restarted by primary yesterday. Will defer the rest of medical management to the primary team. Upon discharge recommend the patient to follow-up with a neurologist as an outpatient within 1-2 weeks. The plan is discussed with patient's and primary team. There is no further neurological work-up. Will sign off. Please reconsult if needed. Time with Patient: Less than 30
--- NOTE | 2023-08-13 13:41 | P.PN ---
Subjective Progress Note Date: 08/13/23 patient is a 83-year-old gentleman with past medical history significant for dementia, hypertension, depression who presented to The ER for altered mental status. Patient last well-known was last evening at 8:30. This morning when his went into the room to check on him, he was found laying on the floor. There was no obvious sign of any trauma. Patient had lost control over his bowel and urine. EMS was called and when they arrived, patient was noted to have jerking of his extremities. Patient history of previous seizures patient was brought to the ER. In the ER patient was found to have flaccid paralysis of right upper extremity and another seizure in front of ER staff. Initial lab work done in the ER showed 11.7, hemoglobin 15.5, platelet count 159, sodium 140, potassium 3.8, BUN 29 creatinine 1.01, AST 45, AST 40 EKG done in the ER showed heart rate of , no ST segment elevation or depression seen, no T-wave inversions seen. Chest x-ray done in the ER CT head done showed no acute intracranial process CT cervical spine done showed no acute cervical spine fracture CTA head and neck done showed heavy calcific plaque of the distal right common carotid and proximal ICA with severe narrowing suggestive of critical stenosis Patient admitted to internal medicine service 08/11. Patient seen and examined. Patient improved a lot compared to yester day, patient is alert, to self, answering questions. Moving all extremities. 08/12. Patient seen and examined. MRI brain done showed increased diffusion restriction within the left hypo-campus likely result of prior seizures, no evidence of intracranial mass, acute/subacute infarct. Not Complaining of urinary hesitancy urgency or incontinence. Discussed with patient's in detail, was at the bedside, she is overwhelmed at the thought of patient going to rehab, counseled her in detail regarding the need for him to go to rehab. 08/13. Patient seen and examined. Patient UA done, showed large amount of leukocyte esterase and urine WBC, will treat with antibiotics. states patient is back to baseline. REVIEW OF SYSTEMS: CONSTITUTIONAL: No fever, no malaise,. CARDIOVASCULAR: No chest pain, no palpitations, no syncope. PULMONARY: No shortness of breath, no cough, GASTROINTESTINAL: No diarrhea, no nausea, no vomiting, no abdominal pain. NEUROLOGICAL: No headaches, no weakness, PHYSICAL EXAMINATION: GENERAL: The patient is alert , not in any acute distress. Well developed, well nourished. HEENT: Pupils are round and equally reacting to light. EOMI. No scleral icterus. No conjunctival pallor. Normocephalic, atraumatic. No pharyngeal erythema. No thyromegaly. CARDIOVASCULAR: S1 and S2 present. No murmurs, rubs, or gallops. PULMONARY: Chest is clear to auscultation, no wheezing or crackles. ABDOMEN: Soft, nontender, nondistended, normoactive bowel sounds. No palpable organomegaly. MUSCULOSKELETAL: No joint swelling or deformity. EXTREMITIES: No cyanosis, clubbing, or pedal edema. NEUROLOGICAL: Gross neurological examination did not reveal any focal deficits. SKIN: No rashes. Assessment and plan Acute metabolic encephalopathy Seizures Right ICA stenosis UTI Monitor vital signs Monitor CBC Monitor CMP Continue telemetry monitoring Fall precautions Seizure precautions Delirium precautions Continue neuro checks Continue aspirin and Lipitor Continue Keppra 750 mg bid Start IV Rocephin for UTI for 3 days EEG done showed background slowing suggestive of moderate encephalopathy. No focal slowing or epileptiform activity seen MRI brain done showed increased diffusion restriction within the left hypo- campus likely result of prior seizures, no evidence of intracranial mass, acute/subacute infarct 2-D echo showed LVEF of 55-60%, no mitral regurg, moderate aortic calcification without significant aortic stenosis Neurology following Vascular surgery was initially consulted for ICA stenosis but family requesting cardiology to evaluate him. Cardiology consulted at patient's family request, they evaluated the patient, reviewed imaging, recommend conservative management Labs and medication were reviewed.. Continue same treatment. Continue with symptomatic treatment. Resume home medication. Monitor labs and vitals. DVT and GI prophylaxis. Further recommendations as per clinical course of the patient Dictation was produced using nprogress dictation software. please excuse any gra mmatical, word or spelling errors. Objective - Vital Signs Vital signs: Vital Signs Temp 97.8 F 08/13/23 07:10 Pulse 66 08/13/23 08:33 Resp 17 08/13/23 07:10 BP 131/78 08/13/23 08:35 Pulse Ox 96 08/13/23 08:33 FiO2 Intake & Output 08/12/23 08/13/23 08/13/23 18:59 06:59 18:59 Intake Total 240 Balance 240 Intake: Oral 240 Other: Voiding Method Toilet Toilet Diaper Diaper Incontinent External Catheter # Voids 1 1 1 - Labs CBC & Chem 7: 08/12/23 05:56 08/12/23 05:56 Labs: Abnormal Lab Results - Last 24 Hours (Table) 08/12/23 08/13/23 Range/Units 05:56 03:50 BUN 27.3 H (9.0-27.0) mg/dL BUN/Creatinine Ratio 24.82 H (12.00-20.00) Ratio AST 53 H (14-35) U/L Albumin/Globulin Ratio 1.50 L (1.60-3.17) Ratio Urine Protein Trace H (Negative) Urine Blood Small H (Negative) Ur Leukocyte Esterase Large H (Negative) Urine RBC 9 H (0-5) /hpf Urine WBC >182 H (0-5) /hpf Urine Bacteria Many H (None) /hpf Hyaline Casts 3 H (0-2) /lpf Urine Mucus Occasional H (None) /hpf
[2023-08-13] MEDS: ATORVASTATIN 40 MG TAB PO SCH (19:48)
[2023-08-13] MEDS: LATANOPROST 0.005% OPHTH DROPS 2.5 ML BTL BOTH EYES SCH (19:49)
[2023-08-13] MEDS: SERTRALINE 50 MG TAB PO SCH (21:00)
[2023-08-14 07:33] VITALS: RESP 16
[2023-08-14] MEDS: METOPROLOL TARTRATE 25 MG TAB PO SCH (08:02)
[2023-08-14] MEDS: ASPIRIN 325 MG TAB PO SCH (08:02)
[2023-08-14] MEDS: TAMSULOSIN 0.4 MG CAP.ER.24H PO SCH (08:02)
[2023-08-14] MEDS: amLODIPine 5 MG TAB PO SCH (08:02)
[2023-08-14] MEDS: DONEPEZIL 10 MG TAB PO SCH (08:02)
[2023-08-14] MEDS: APIXABAN 2.5 MG TABLET PO SCH (08:02)
[2023-08-14] MEDS: PANTOPRAZOLE 40 MG TABLET PO SCH (08:02)
[2023-08-14] MEDS: DORZOLAMIDE HCL 2% DROPS 10 ML BTL BOTH EYES SCH (08:03)
[2023-08-14] MEDS: levETIRAcetam 250 MG TAB PO SCH (08:03)
[2023-08-14] MEDS: TIMOLOL 0.5% OPHTH DROPS 5 ML BTL BOTH EYES SCH (08:04)
--- NOTE | 2023-08-14 14:34 | P.DS ---
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 Do you want consulting provider notified?: Yes Primary care physician: Antony Garcia MD Hospital Course: Discharge diagnoses; Acute metabolic encephalopathy Seizures Right ICA stenosis UTI Hospital course; patient is a 83-year-old gentleman with past medical history significant for dementia, hypertension, depression who presented to The ER for altered mental status. Patient last well-known was last evening at 8:30. This morning when his went into the room to check on him, he was found laying on the floor. There was no obvious sign of any trauma. Patient had lost control over his bowel and urine. EMS was called and when they arrived, patient was noted to have jerking of his extremities. Patient history of previous seizures patient was brought to the ER. In the ER patient was found to have flaccid paralysis of right upper extremity and another seizure in front of ER staff. Initial lab work done in the ER showed 11.7, hemoglobin 15.5, platelet count 159, sodium 140, potassium 3.8, BUN 29 creatinine 1.01, AST 45, AST 40 EKG done in the ER showed heart rate of , no ST segment elevation or depression seen, no T-wave inversions seen. Chest x-ray done in the ER CT head done showed no acute intracranial process CT cervical spine done showed no acute cervical spine fracture CTA head and neck done showed heavy calcific plaque of the distal right common carotid and proximal ICA with severe narrowing suggestive of critical stenosis Patient admitted to internal medicine service 08/11. Patient seen and examined. Patient improved a lot compared to yesterday, patient is alert, to self, answering questions. Moving all extremities. 08/12. Patient seen and examined. MRI brain done showed increased diffusion restriction within the left hypo-campus likely result of prior seizures, no evidence of intracranial mass, acute/subacute infarct. Not Complaining of urinary hesitancy urgency or incontinence. Discussed with patient's in detail, was at the bedside, she is overwhelmed at the thought of patient going to rehab, counseled her in detail regarding the need for him to go to rehab. 08/13. Patient seen and examined. Patient UA done, showed large amount of leukocyte esterase and urine WBC, will treat with antibiotics. states patient is back to baseline. 08/14. Patient seen and examined. Discussed with neurology, they recommended discharging patient on Keppra 750 mg twice a day. Outpatient follow-up with neurology. Patient already received 2 days off IV antibiotics will be discharged on 1 more day of Ceftin for UTI. PHYSICAL EXAMINATION: GENERAL: The patient is alert , not in any acute distress. Well developed, well nourished. HEENT: Pupils are round and equally reacting to light. EOMI. No scleral icterus. No conjunctival pallor. Normocephalic, atraumatic. No pharyngeal erythema. No thyromegaly. CARDIOVASCULAR: S1 and S2 present. No murmurs, rubs, or gallops. PULMONARY: Chest is clear to auscultation, no wheezing or crackles. ABDOMEN: Soft, nontender, nondistended, normoactive bowel sounds. No palpable organomegaly. MUSCULOSKELETAL: No joint swelling or deformity. EXTREMITIES: No cyanosis, clubbing, or pedal edema. NEUROLOGICAL: Gross neurological examination did not reveal any focal deficits. SKIN: No rashes. Dictation was produced using [employer] dictation software. please excuse any grammatical, word or spelling errors. Patient Condition at Discharge: Stable Plan - Discharge Summary Discharge Rx Participant: Yes New Discharge Prescriptions: New cefUROXime axetiL [Ceftin] 500 mg PO BID 1 Days #2 tab levETIRAcetam [Keppra] 750 mg PO Q12HR 30 Days #60 tab Aspirin 325 mg PO DAILY 30 Days #30 tab Continue amLODIPine BESYLATE [Norvasc] 5 mg PO DAILY Esomeprazole Magnesium [NexIUM] 40 mg PO DAILY Timolol [Betimol 0.5% Ophth Soln] 1 drop BOTH EYES BID Apixaban [Eliquis] 2.5 mg PO BID tablet Atorvastatin [Lipitor] 40 mg PO HS Donepezil [Aricept] 10 mg PO DAILY Sertraline [Zoloft] 150 mg PO HS Fosinopril Sodium [Monopril] 20 mg PO DAILY Dorzolamide HCl/Pf [Dorzolamide 2% Eye Drop] 1 drop BOTH EYES BID Latanoprost [Xalatan 0.005%] 1 drop BOTH EYES HS Metoprolol Tartrate [Lopressor] 25 mg PO BID Tamsulosin [Flomax] 0.4 mg PO DAILY Discontinued Aspirin EC [Ecotrin Low Dose] 81 mg PO DAILY Discharge Medication List Esomeprazole Magnesium [NexIUM] 40 mg PO DAILY 02/11/14 [History] amLODIPine BESYLATE [Norvasc] 5 mg PO DAILY 02/11/14 [History] Dorzolamide HCl/Pf [Dorzolamide 2% Eye Drop] 1 drop BOTH EYES BID 12/11/20 [History] Fosinopril Sodium [Monopril] 20 mg PO DAILY 12/11/20 [History] Sertraline [Zoloft] 150 mg PO HS 12/11/20 [History] Timolol [Betimol 0.5% Ophth Soln] 1 drop BOTH EYES BID 12/11/20 [History] Apixaban [Eliquis] 2.5 mg PO BID tablet 12/15/20 [Rx] Latanoprost [Xalatan 0.005%] 1 drop BOTH EYES HS 09/15/21 [History] Atorvastatin [Lipitor] 40 mg PO HS 05/03/23 [History] Donepezil [Aricept] 10 mg PO DAILY 05/03/23 [History] Metoprolol Tartrate [Lopressor] 25 mg PO BID 08/10/23 [History] Tamsulosin [Flomax] 0.4 mg PO DAILY 08/10/23 [History] Aspirin 325 mg PO DAILY 30 Days #30 tab 08/14/23 [Rx] cefUROXime axetiL [Ceftin] 500 mg PO BID 1 Days #2 tab 08/14/23 [Rx] levETIRAcetam [Keppra] 750 mg PO Q12HR 30 Days #60 tab 08/14/23 [Rx] Follow up Appointment(s)/Referral(s): Antony Garcia MD [Primary Care Provider] - 1-2 days Discharge Disposition: HOME WITH HOME HEALTH SERVICES
[2023-08-14 14:44] VITALS: BP 101/66; PULSE 75; TEMP 98.4
== END 2023-08-14 15:38 | disposition home health service (06) | DRG 100 ==
LOC: EC 08:15 → 3SCARD 10:59 → 4SSUR 08-11 15:09
PROVIDERS: ADMIT Internal Medicine; ATTEND Internal Medicine
DX: G40.909 Epilepsy, unspecified, not intractable, without status epilepticus (principal); G93.41 Metabolic encephalopathy; N39.0 Urinary tract infection, site not specified; F03.B3 Unspecified dementia, moderate, with mood disturbance; R32 Unspecified urinary incontinence; G83.21 Monoplegia of upper limb affecting right dominant side; F32.A Depression, unspecified; I65.21 Occlusion and stenosis of right carotid artery; J44.9 Chronic obstructive pulmonary disease, unspecified; I10 Essential (primary) hypertension; E78.5 Hyperlipidemia, unspecified; K21.9 Gastro-esophageal reflux disease without esophagitis; M19.90 Unspecified osteoarthritis, unspecified site; I25.10 Atherosclerotic heart disease of native coronary artery without angina pectoris; H91.92 Unspecified hearing loss, left ear; G83.84 Todd's paralysis (postepileptic); Z66 Do not resuscitate; I25.2 Old myocardial infarction; Z92.3 Personal history of irradiation; Z86.73 Personal history of transient ischemic attack (TIA), and cerebral infarction without residual deficits; Z85.46 Personal history of malignant neoplasm of prostate; Z79.899 Other long term (current) drug therapy; Z79.82 Long term (current) use of aspirin; Z79.01 Long term (current) use of anticoagulants; Z87.891 Personal history of nicotine dependence
CPT/HCPCS: 36415; 70450; 70496; 70498; 70553; 71045; 72125; 80053; 80061; 80156; 80164; 80178; 80185; 80306; 80320; 81001; 82550; 83735; 84484; 85025; 85610; 85730; 87077; 87086; 87186; 93005; 93306; 95816; 96360; 96361; 96365; 96375; 99285; 99291

== ENCOUNTER 2024-01-17 07:34 | Emergency (ER) | payer MEDICARE ==
[2024-01-17 07:40] VITALS: RESP 18
--- NOTE | 2024-01-17 08:43 | ED ---
Fall HPI - General Chief Complaint: Fall Stated Complaint: fall/on thinners Time Seen by Provider: 01/17/24 07:40 Source: patient, family, RN notes reviewed Mode of arrival: ambulatory Limitations: no limitations - History of Present Illness Initial Comments: 83-year-old male presents emergency department with chief complaint of fall. Patient fell trip and fall earlier this morning patient has abrasion on his head, left elbow. Tetanus up-to-date. Patient is on Eliquis was brought in for evaluation patient has no complaints of headache dizziness back pain neck pain chest pain states he has small abrasion to his left elbow, skin tear but no discomfort. - Related Data Home Medications Medication Instructions Recorded Confirmed Esomeprazole Magnesium [NexIUM] 40 mg PO DAILY 02/11/14 08/10/23 amLODIPine BESYLATE [Norvasc] 5 mg PO DAILY 02/11/14 08/10/23 Dorzolamide HCl/Pf [Dorzolamide 2% 1 drop BOTH EYES BID 12/11/20 08/10/23 Eye Drop] Fosinopril Sodium [Monopril] 20 mg PO DAILY 12/11/20 08/10/23 Sertraline [Zoloft] 150 mg PO HS 12/11/20 08/10/23 Timolol [Betimol 0.5% Ophth Soln] 1 drop BOTH EYES BID 12/11/20 08/10/23 Latanoprost [Xalatan 0.005%] 1 drop BOTH EYES HS 09/15/21 08/10/23 Atorvastatin [Lipitor] 40 mg PO HS 05/03/23 08/10/23 Donepezil [Aricept] 10 mg PO DAILY 05/03/23 08/10/23 Metoprolol Tartrate [Lopressor] 25 mg PO BID 08/10/23 08/10/23 Tamsulosin [Flomax] 0.4 mg PO DAILY 08/10/23 08/10/23 Previous Rx's Medication Instructions Recorded Apixaban [Eliquis] 2.5 mg PO BID tablet 12/15/20 Aspirin 325 mg PO DAILY 30 Days #30 tab 08/14/23 cefUROXime axetiL [Ceftin] 500 mg PO BID 1 Days #2 tab 08/14/23 levETIRAcetam [Keppra] 750 mg PO Q12HR 30 Days #60 tab 08/14/23 Allergies Allergy/AdvReac Type Severity Reaction Status Date / Time No Known Allergies Allergy Verified 01/17/24 07:39 Review of Systems ROS Statement: Those systems with pertinent positive or pertinent negative responses have been documented in the HPI. ROS Other: All systems not noted in ROS Statement are negative. Past Medical History Past Medical History: Cancer, COPD, GERD/Reflux, Hearing Disorder / Deafness, Hyperlipidemia, Hypertension, Myocardial Infarction ([place]), Neurologic Disorder, Osteoarthritis (OA), Prostate Disorder Additional Past Medical History / Comment(s): PROSATE CA (2008) RADIATION [place]. HX OF TIA. 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 URINARY CALCULI. Last Myocardial Infarction Date:: 2020 History of Any Multi-Drug Resistant Organisms: None Reported Past Surgical History: Adenoidectomy, Back Surgery, Joint Replacement, Orthopedic Surgery, Tonsillectomy Additional Past Surgical History / Comment(s): LITHOTRIPSY. BACK OR (1987 & 1997). BILATERAL REVERSE SOCKET OF SHOULDERS. Past Anesthesia/Blood Transfusion Reactions: No Reported Reaction Past Psychological History: Depression Smoking Status: Unknown if ever smoked Past Alcohol Use History: None Reported Past Drug Use History: None Reported General Exam Limitations: no limitations General appearance: alert, in no apparent distress Head exam: Present: atraumatic, normocephalic. Absent: normal inspection (Abrasion head) Eye exam: Present: normal appearance, PERRL, EOMI. Absent: scleral icterus, conjunctival injection, periorbital swelling ENT exam: Present: normal exam, normal oropharynx, mucous membranes moist Neck exam: Present: normal inspection. Absent: tenderness, meningismus, lymphadenopathy Respiratory exam: Present: normal lung sounds bilaterally. Absent: respiratory distress, wheezes, rales, rhonchi, stridor Cardiovascular Exam: Present: regular rate, normal rhythm, normal heart sounds. Absent: systolic murmur, diastolic murmur, rubs, gallop, clicks Extremities exam: Present: other (Left elbow skin tear otherwise normal extremity exam) Back exam: Present: normal inspection, full ROM. Absent: tenderness Neurological exam: Present: alert, oriented X3, CN II-XII intact, reflexes normal. Absent: motor sensory deficit Course Vital Signs 01/17/24 07:37 Temperature 97.4 F L Pulse Rate 87 Respiratory 18 Rate Blood Pressure 148/82 O2 Sat by Pulse 99 Oximetry Medical Decision Making - Medical Decision Making Was pt. sent in by a medical professional or institution ([facility]os, [employer], urgent care, hospital, or assisted...) When possible be specific @ -No Did you speak to anyone other than the patient for history (EMS, parent, family, police, friend...)? What history was obtained from this source @ -No Did you review nursing and triage notes (agree or disagree)? Why? @ -I reviewed and agree with nursing and triage notes Were old charts reviewed (outside hosp., previous admission, EMS record, old EKG, old radiological studies, urgent care reports/EKG's, assisted records)? Report findings @ -No old charts were reviewed Differential Diagnosis (chest pain, altered mental status, abdominal pain women, abdominal pain men, vaginal bleeding, weakness, fever, dyspnea, syncope, headache, dizziness, GI bleed, back pain, seizure, CVA, palpatations, mental health, musculoskeletal)? @ -Fall, intracranial hemorrhage, scalp contusion, skin abrasion, laceration EKG interpreted by me (3pts min.). @ -None X-rays interpreted by me (1pt min.). @ -None done CT interpreted by me (1pt min.). @ -CT brain, C-spine showing chronic changes small vessel disease no acute fracture or intracranial hemorrhage U/S interpreted by me (1pt. min.). @ -None done What testing was considered but not performed or refused? (CT, X-rays, U/S, labs)? Why? @ -None What meds were considered but not given or refused? Why? @ -None Did you discuss the management of the patient with other professionals (professionals i.e. [facility] Leos, [employer], lab, RT, psych nurse, social work instructor, nat instructor, teacher, correctional officer, director case management)? Give summary @ -No Was smoking cessation discussed for >3mins.? @ -No Was critical care preformed (if so, how long)? @ -No Were there social determinants of health that impacted care today? How? (Homelessness, low income, unemployed, alcoholism, drug addiction, transportation, low edu. Level, literacy, decrease access to med. care, [place] [facility], rehab)? @ -No Was there de-escalation of care discussed even if they declined (Discuss DNR or withdrawal of care, Hospice)? DNR status @ -No What co-morbidities impacted this encounter? (DM, HTN, Smoking, COPD, CAD, Cancer, CVA, ARF, Chemo, Hep., AIDS, mental health diagnosis, sleep apnea, morbid obesity)? @ -None Was patient admitted / discharged? Hospital course, mention meds given and route, prescriptions, significant lab abnormalities, going to OR and other pertinent info. @ -Discharge patient CT is unremarkable. Patient has skin tear, abrasion patient is discharged in stable condition return parameters danae. Undiagnosed new problem with uncertain prognosis? @ -No Drug Therapy requiring intensive monitoring for toxicity (Heparin, Nitro, Insulin, Cardizem)? @ -No Were any procedures done? @ -No Diagnosis/symptom? @ -Fall, scalp abrasion, skin tear left arm Acute, or Chronic, or Acute on Chronic? @ -Acute Uncomplicated (without systemic symptoms) or Complicated (systemic symptoms)? @ -Uncomplicated Side effects of treatment? @ -No Exacerbation, Progression, or Severe Exacerbation? @ -No Poses a threat to life or bodily function? How? (Chest pain, [place], [place], pneumonia, PE, COPD, DKA, ARF, appy, cholecystitis, CVA, Diverticulitis, Homicidal, Suicidal, threat to staff... and all critical care pts) @ -No Disposition Clinical Impression: Fall, Scalp abrasion, Skin tear of left upper extremity, Closed head injury Disposition: HOME SELF-CARE Condition: Stable Instructions (If sedation given, give patient instructions): Head Injury (ED) Additional Instructions: Please return to the Emergency Department if symptoms worsen or any other concerns. Is patient prescribed a controlled substance at d/c from ED?: No Referrals: Antony Garcia MD [Primary Care Provider] - 1-2 days Time of Disposition: 09:53
--- NOTE | 2024-01-17 09:30 | CT ---
EXAMINATION TYPE: CT brain apple wo con DATE OF EXAM: 01/17/2024 COMPARISON: CT 08/10/2023 HISTORY: 83-year-old male Fall, pain CT DLP: 1449.8 mGycm Automated exposure control for dose reduction was used. Technique: Examination of the head was done in axial plane without intravenous contrast. Coronal and sagittal reconstructions performed. CT of the cervical spine was obtained in axial plane without intravenous injection of contrast mater ial. Coronal and sagittal reformatted images were obtained from the axial views for evaluation of f ractures, spinal alignment and canal. FINDINGS: Head: Left superior scalp contusion. There is no evidence of acute intracranial hemorrhage, acute ischemic changes, mass, mass-effect, or extra-axial fluid collection. There is no effacement of cerebral sulci or basal subarachnoid cister ns. Similar [id number] ventriculomegaly with Alexandre's ratio calculated at 0.37. There is no midli ne shift. Harry-white matter distinction is preserved. Old lacunar infarct redemonstrated left basal ganglia with moderate confluent white matter hypodensit ies in both cerebral hemispheres. Mild mucosal thickening ethmoid air cells. Orbits and globes are intact. Mastoid air cells are well p neumatized. Cervical spine: No craniocervical junction abnormality, predental space widening, or prevertebral soft tissue swellin g. Prominent degenerative change at the C1-C2 articulations including dens articulation and lateral m ass articulations. Degenerative bony ankylosis C2-C3 levels. Also C6-C7. Moderate to severe multilevel disc/endplate degenerative changes present. Degenerative grade 1 retrolisthesis C3-C4 and C6/C7. Degenerative grade 1 anterolisthesis C4-C5 and C7-T1. Disc osteophyte complexes contribute to variable mild to moderate neuroforaminal stenoses throughout, particularly at C3-C4, C5-C6, and C6-C7. Advanced hypertrophic facet arthropathy. No acute fracture seen of the cervical spine. Variable moderate neural foraminal stenosis throughout, more moderate severe at some levels in the mi d and lower cervical spine. Sagittal and coronal reformatted images confirm above findings. COMBINED IMPRESSION: 1. Mild left superior scalp contusion. No underlying calvarial fracture. No acute intracranial abnorm ality seen. 2. Similar mild to moderate ventriculomegaly which may in part relate to central cerebral atrophy. Co rrelate to exclude a component of NPH. 3. Similar moderate confluent burden of chronic small vessel ischemic disease. 4. Moderate to advanced multilevel spondylotic change with degenerative interbody ankylosis C2-C3 and C6-C7. Degenerative grade 1 spondylolistheses remain unchanged. No acute fracture seen.
[2024-01-17 11:01] VITALS: BP 150/76; PULSE 53; TEMP 97.7
== END 2024-01-17 10:03 | disposition home or self-care (01) ==
LOC: EC 07:34
DX: S51.012A Laceration without foreign body of left elbow, initial encounter (principal); S00.01XA Abrasion of scalp, initial encounter; W01.0XXA Fall on same level from slipping, tripping and stumbling without subsequent striking against object, initial encounter
CPT/HCPCS: 70450; 72125; 99284

== ENCOUNTER 2024-01-21 08:44 | Emergency (ER) | payer MEDICARE ==
[2024-01-21 08:50] VITALS: RESP 16; TEMP 97.5
--- NOTE | 2024-01-21 09:13 | ED ---
General Adult HPI - General Chief complaint: Head Injury Stated complaint: facial injuries Time Seen by Provider: 01/21/24 08:50 Source: patient, RN notes reviewed, old records reviewed Mode of arrival: ambulatory Limitations: no limitations - History of Present Illness Initial comments: This is an 83-year-old male who presents to the emergency department stating that he fell 4 days ago and came to the emergency department that time get a CT of his head and neck and it was normal. Patient states since then he has gotten quite a bit of bruising around both eyes particular in the medial aspect. Patient states he has no headache he denies neck pain he denies any numbness weakness. Patient denies any facial pain. Patient denies any new symptoms other than the ecchymosis around both eyes. - Related Data Home Medications Medication Instructions Recorded Confirmed Esomeprazole Magnesium [NexIUM] 40 mg PO DAILY 02/11/14 08/10/23 amLODIPine BESYLATE [Norvasc] 5 mg PO DAILY 02/11/14 08/10/23 Dorzolamide HCl/Pf [Dorzolamide 2% 1 drop BOTH EYES BID 12/11/20 08/10/23 Eye Drop] Fosinopril Sodium [Monopril] 20 mg PO DAILY 12/11/20 08/10/23 Sertraline [Zoloft] 150 mg PO HS 12/11/20 08/10/23 Timolol [Betimol 0.5% Ophth Soln] 1 drop BOTH EYES BID 12/11/20 08/10/23 Latanoprost [Xalatan 0.005%] 1 drop BOTH EYES HS 09/15/21 08/10/23 Atorvastatin [Lipitor] 40 mg PO HS 05/03/23 08/10/23 Donepezil [Aricept] 10 mg PO DAILY 05/03/23 08/10/23 Metoprolol Tartrate [Lopressor] 25 mg PO BID 08/10/23 08/10/23 Tamsulosin [Flomax] 0.4 mg PO DAILY 08/10/23 08/10/23 Previous Rx's Medication Instructions Recorded Apixaban [Eliquis] 2.5 mg PO BID tablet 12/15/20 Aspirin 325 mg PO DAILY 30 Days #30 tab 08/14/23 cefUROXime axetiL [Ceftin] 500 mg PO BID 1 Days #2 tab 08/14/23 levETIRAcetam [Keppra] 750 mg PO Q12HR 30 Days #60 tab 08/14/23 Allergies Allergy/AdvReac Type Severity Reaction Status Date / Time No Known Allergies Allergy Verified 01/17/24 07:39 Review of Systems ROS Statement: Those systems with pertinent positive or pertinent negative responses have been documented in the HPI. ROS Other: All systems not noted in ROS Statement are negative. Past Medical History Past Medical History: Cancer, COPD, Dementia, GERD/Reflux, Hearing Disorder / Deafness, Hyperlipidemia, Hypertension, Myocardial Infarction ([place]), Neurologic Disorder, Osteoarthritis (OA), Prostate Disorder Additional Past Medical History / Comment(s): PROSATE CA (2008) RADIATION [place]. HX OF TIA. 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 URINARY CALCULI. Last Myocardial Infarction Date:: 2020 History of Any Multi-Drug Resistant Organisms: None Reported Past Surgical History: Adenoidectomy, Back Surgery, Joint Replacement, Orthopedic Surgery, Tonsillectomy Additional Past Surgical History / Comment(s): LITHOTRIPSY. BACK OR (1987 & 1997). BILATERAL REVERSE SOCKET OF SHOULDERS. Past Anesthesia/Blood Transfusion Reactions: No Reported Reaction Past Psychological History: Depression Smoking Status: Unknown if ever smoked Past Alcohol Use History: None Reported Past Drug Use History: None Reported General Exam - General Exam Comments Initial Comments: GENERAL: Patient is well-developed and well-nourished. Patient is nontoxic and well- hydrated and is in no acute distress. ENT: Neck is soft and supple. No significant lymphadenopathy is noted. Oropharynx is clear. Moist mucous membranes. Neck has full range of motion without eliciting any pain. EYES: Patient has ecchymosis around both eyes. Patient extraocular motion is normal SKIN: Patient has ecchymosis around both eyes but there is no tenderness NEUROLOGIC: Patient is alert and oriented x3. Cranial nerves II through XII are grossly intact. Motor and sensory are also intact. Normal speech, volume and content. Symmetrical smile. MUSCULOSKELETAL: Normal extremities with adequate strength and full range of motion. Limitations: no limitations Course Vital Signs 01/21/24 08:47 Temperature 97.5 F L Pulse Rate 51 L Respiratory 16 Rate Blood Pressure 116/67 O2 Sat by Pulse 95 Oximetry Medical Decision Making - Medical Decision Making Was pt. sent in by a medical professional or institution (Dr., PA, RISK INTERN, urgent care, hospital, or intermediate...) When possible be specific @ -No Did you speak to anyone other than the patient for history (EMS, parent, family, police, friend...)? What history was obtained from this source @ -No Did you review nursing and triage notes (agree or disagree)? Why? @ -I reviewed and agree with nursing and triage notes Were old charts reviewed (outside hosp., previous admission, EMS record, old EKG, old radiological studies, urgent care reports/EKG's, intermediate records)? Report findings @ -No old charts were reviewed Differential Diagnosis (chest pain, altered mental status, abdominal pain women, abdominal pain men, vaginal bleeding, weakness, fever, dyspnea, syncope, headache, dizziness, GI bleed, back pain, seizure, CVA, palpatations, mental health, musculoskeletal)? @ -Orbital fracture, nasal bone fracture, maxillary fracture, this is not an all-inclusive list EKG interpreted by me (3pts min.). @ -As above X-rays interpreted by me (1pt min.). @ -None done CT interpreted by me (1pt min.). @ -CT of the facial bones showed no acute abnormality U/S interpreted by me (1pt. min.). @ -None done What testing was considered but not performed or refused? (CT, X-rays, U/S, labs)? Why? @ -None What meds were considered but not given or refused? Why? @ -None Did you discuss the management of the patient with other professionals (professionals i.e. TRISTIN Leos, RISK INTERN, lab, RT, psych nurse, social work instructor, orthopedic designer, teacher, traffic division commanding officer, case packer and sealer)? Give summary @ -No Was smoking cessation discussed for >3mins.? @ -No Was critical care preformed (if so, how long)? @ -No Were there social determinants of health that impacted care today? How? (Homelessness, low income, unemployed, alcoholism, drug addiction, transportation, low edu. Level, literacy, decrease access to med. care, assisted, rehab)? @ -No Was there de-escalation of care discussed even if they declined (Discuss DNR or withdrawal of care, Hospice)? DNR status @ -No What co-morbidities impacted this encounter? (DM, HTN, Smoking, COPD, CAD, Cancer, CVA, ARF, Chemo, Hep., AIDS, mental health diagnosis, sleep apnea, morbid obesity)? @ -None Was patient admitted / discharged? Hospital course, mention meds given and route, prescriptions, significant lab abnormalities, going to OR and other pertinent info. @ -Patient had no complaints other than the ecchymosis around his eyes a CAT scan of his facial bones was negative patient denied headache numbness weakness or any neck pain so patient be discharged home Undiagnosed new problem with uncertain prognosis? @ -No Drug Therapy requiring intensive monitoring for toxicity (Heparin, Nitro, Insulin, Cardizem)? @ -No Were any procedures done? @ -No Diagnosis/symptom? @ -Facial ecchymosis Acute, or Chronic, or Acute on Chronic? @ -Acute Uncomplicated (without systemic symptoms) or Complicated (systemic symptoms)? @ -Complicated Side effects of treatment? @ -No Exacerbation, Progression, or Severe Exacerbation? @ -No Poses a threat to life or bodily function? How? (Chest pain, [place], [place], pneumonia, PE, COPD, DKA, ARF, appy, cholecystitis, CVA, Diverticulitis, Homicidal, Suicidal, threat to staff... and all critical care pts) @ -No Disposition Clinical Impression: Traumatic ecchymosis of orbit Disposition: HOME SELF-CARE Instructions (If sedation given, give patient instructions): Ecchymosis (ED) Is patient prescribed a controlled substance at d/c from ED?: No Referrals: Antony Garcia MD [Primary Care Provider] - 1-2 days Time of Disposition: 10:34
--- NOTE | 2024-01-21 10:17 | CT ---
EXAMINATION TYPE: CT facial bones wo con CT DLP: 442.5 mGycm, Automated exposure control for dose reduction was used. DATE OF EXAM: 01/21/2024 9:37 AM COMPARISON: 01/17/2024. CLINICAL INDICATION:Male, 83 years old with history of Trauma; PHH, Bruising to bilateral orbits. Fa ll on Tuesday, patient on Eliqu TECHNIQUE: Multiple unenhanced axial CT images were obtained of the facial bones soft tissue and bone windows. Coronal, axial and sagittal reformatted images were also provided in soft tissue and bone windows and submitted for interpretation. Additional 3-D reformatted images were obtained on a [employer] workstation. . Contrast used: mL of , (none if empty) Oral contrast used: (none if empty) FINDINGS: No evidence of fracture. The orbits are intact. The globes are intact. Bilateral senile calcified scl eral plaquing noted. Visualized osseous structures are intact. There is mild scattered mucosal thicke melania. Multilevel degeneration changes of the upper spine. Atherosclerosis, secretions at the carotid bifurcations. Atherosclerosis of the intracranial vasculature noted. Mild edema of the scalp anterior ly. IMPRESSION: No evidence facial bone structure. Mild scalp edema anteriorly.
[2024-01-21 11:09] VITALS: BP 118/63; PULSE 56
== END 2024-01-21 10:59 | disposition home or self-care (01) ==
LOC: EC 08:44
DX: S05.12XA Contusion of eyeball and orbital tissues, left eye, initial encounter (principal); S05.11XA Contusion of eyeball and orbital tissues, right eye, initial encounter; W19.XXXA Unspecified fall, initial encounter
CPT/HCPCS: 70486; 99284

== ENCOUNTER → 2024-12-11 | Day surgery (SDC) | payer MEDICARE ==
--- NOTE | 2024-12-04 17:00 | P.HPIHPCON ---
History of Present Illness H&P Date: 12/04/24 Chief Complaint: Bladder stone This is an 84-year-old male with history of recurrent UTIs. He had a CT abdomen and pelvis back in September 2024 that showed evidence of a 1.3 cm bladder stone. Of note this was not included in the CT report but on review of images it was seen. Discussed given his recurrent UTIs I do recommend proceeding with cystolitholapaxy as this could be the cause of his stone. Risk of bleeding, infection, injury to the bladder was discussed. Discussed potential persistent UTI even with bladder stone removal Consent for Procedure: I have explained the operation/procedure to the patient, including the risks, benefits, side effects, alternative therapies (including not receiving the proposed treatment or service), the likelihood of the patient achieving his/her goals, and potential recuperation problems for the procedure/sedation/analgesia, as well as any blood products, if indicated. I also explained to the patient the risks, benefits and side effects of the alternatives, as well as the risks related to not receiving the proposed procedure, care, treatment, or services. Past Medical History Past Medical History: Cancer, COPD, Dementia, GERD/Reflux, Hearing Disorder / Deafness, Hyperlipidemia, Hypertension, Myocardial Infarction ([place]), Neurologic Disorder, Osteoarthritis (OA), Prostate Disorder Additional Past Medical History / Comment(s): PROSATE CA (2008) RADIATION [place]. HX OF TIA. 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 URINARY CALCULI. Last Myocardial Infarction Date:: 2020 History of Any Multi-Drug Resistant Organisms: None Reported Past Surgical History: Adenoidectomy, Back Surgery, Joint Replacement, Orthopedic Surgery, Tonsillectomy Additional Past Surgical History / Comment(s): LITHOTRIPSY. BACK OR (1987 & 1997). BILATERAL REVERSE SOCKET OF SHOULDERS. Past Anesthesia/Blood Transfusion Reactions: No Reported Reaction Past Psychological History: Depression Smoking Status: Unknown if ever smoked Past Alcohol Use History: None Reported Past Drug Use History: None Reported Medications and Allergies Home Medications Medication Instructions Recorded Confirmed Type Esomeprazole Magnesium [NexIUM] 40 mg PO DAILY 02/11/14 08/10/23 History amLODIPine BESYLATE [Norvasc] 5 mg PO DAILY 02/11/14 08/10/23 History Dorzolamide HCl/Pf [Dorzolamide 2% 1 drop BOTH EYES BID 12/11/20 08/10/23 History Eye Drop] Fosinopril Sodium [Monopril] 20 mg PO DAILY 12/11/20 08/10/23 History Sertraline [Zoloft] 150 mg PO HS 12/11/20 08/10/23 History Timolol [Betimol 0.5% Ophth Soln] 1 drop BOTH EYES BID 12/11/20 08/10/23 History Apixaban [Eliquis] 2.5 mg PO BID tablet 12/15/20 08/10/23 Rx Latanoprost [Xalatan 0.005%] 1 drop BOTH EYES HS 09/15/21 08/10/23 History Atorvastatin [Lipitor] 40 mg PO HS 05/03/23 08/10/23 History Donepezil [Aricept] 10 mg PO DAILY 05/03/23 08/10/23 History Metoprolol Tartrate [Lopressor] 25 mg PO BID 08/10/23 08/10/23 History Tamsulosin [Flomax] 0.4 mg PO DAILY 08/10/23 08/10/23 History Aspirin 325 mg PO DAILY 30 Days #30 tab 08/14/23 Rx cefuroxime axetiL [Ceftin] 500 mg PO BID 1 Days #2 tab 08/14/23 Rx levETIRAcetam [Keppra] 750 mg PO Q12HR 30 Days #60 tab 08/14/23 Rx Allergies Allergy/AdvReac Type Severity Reaction Status Date / Time No Known Allergies Allergy Verified 01/17/24 07:39 Surgical - Exam - General no distress, no pain - Eyes normal ocular movement, no pale - ENT normal nares, normal mucosa - Respiratory normal expansion, normal respiratory effort - Abdomen Abdomen: soft, non tender, no distended - Psychiatric oriented to time, oriented to person, oriented to place Assessment and Plan Assessment: 84-year-old male with history of bladder stone OR for cystolitholapaxy
[2024-12-06 16:09] VITALS: BMI 25.0
[~2024-12-11] MED LIST: HYDROmorphone 0.5 MG/0.5 ML SYRINGE IVP PRN; LIDOCAINE 1% (10MG/ML) FOR IV START INTRADERMA PRN; LIDOCAINE 1% INJ 10MG/ML (20 ML MDV) ONE; MIDAZOLAM 2 MG/2 ML VIAL IV PRN; MIDAZOLAM 2 MG/2 ML VIAL ONE; PROPOFOL 10 MG/ML 20 ML VIAL IV ONE; fentaNYL (PF) 50 MCG/ML 2 ML AMP IVP PRN; fentaNYL (PF) 50 MCG/ML 2 ML AMP ONE
[2024-12-11 07:54] VITALS: TEMP 97.9
[2024-12-11] MEDS: LACTATED RINGERS 1,000 ML IV SCH (08:09)
[2024-12-11] MEDS: DEXAMETHASONE SOD PHOSPHATE 4 MG/ML 1 ML VIAL IV ONE (08:09)
[2024-12-11] MEDS: ONDANSETRON 4 MG/2 ML VIAL IVP ONE (08:09)
[2024-12-11] MEDS: IV FLUID CONTINUATION 1,000 ML IV ONE (08:11)
[2024-12-11] MEDS: ceFAZolin 2 GM in DEXTROSE 5% IN WATER 50 ML IVPB PRN (08:29)
--- NOTE | 2024-12-11 09:28 | P.OP ---
Date of Procedure: 12/11/24 Preoperative Diagnosis: Bladder stone Postoperative Diagnosis: Same Procedure(s) Performed: Cystolitholapaxy (less than 2.5) Anesthesia: CELIAA Surgeon: Lucio Cortes Estimated Blood Loss (ml): 1 Pathology: other (Bladder stone) Condition: stable Disposition: PACU Indications for Procedure: This is an 84-year-old male with history of recurrent UTIs. He had a CT abdomen and pelvis back in September 2024 that showed evidence of a 1.3 cm bladder stone. Of note this was not included in the CT report but on review of images it was seen. Discussed given his recurrent UTIs I do recommend proceeding with cystolitholapaxy as this could be the cause of his stone. Risk of bleeding, infection, injury to the bladder was discussed. Discussed potential persistent UTI even with bladder stone removal Operative Findings: Large stone in the bladder Description of Procedure: Patient brought the operating room, general anesthesia was induced. He was prepped and draped in sterile fashion placed in a dorsolithotomy position. Cystoscopy dated 22 Irish sheath was inserted per urethra, cystoscopy was performed showed a moderately trabeculated bladder and a large stone in the most dependent portion of the bladder, no other abnormalities was seen within the bladder. Using the holmium laser the stone was fragmented, stone fragments was irrigated out. Repeat cystoscopy showed no evidence of bleeding or any sizable stone fragments. The bladder was emptied at the end of the case. Patient tolerated procedure well was taken to recovery in stable condition
[2024-12-11 09:53] VITALS: BP 127/75; PULSE 59; RESP 18
== END | disposition home or self-care (01) ==
LOC: OR 07:25
PROVIDERS: ATTEND Urology
DX: N21.0 Calculus in bladder (principal); M19.90 Unspecified osteoarthritis, unspecified site; J44.9 Chronic obstructive pulmonary disease, unspecified; I25.2 Old myocardial infarction; I10 Essential (primary) hypertension; F03.90 Unspecified dementia, unspecified severity, without behavioral disturbance, psychotic disturbance, mood disturbance, and anxiety; E78.5 Hyperlipidemia, unspecified; I25.10 Atherosclerotic heart disease of native coronary artery without angina pectoris; G40.909 Epilepsy, unspecified, not intractable, without status epilepticus; H91.90 Unspecified hearing loss, unspecified ear; Z79.01 Long term (current) use of anticoagulants; Z86.73 Personal history of transient ischemic attack (TIA), and cerebral infarction without residual deficits; Z90.89 Acquired absence of other organs; Z79.899 Other long term (current) drug therapy; Z88.8 Allergy status to other drugs, medicaments and biological substances
CPT/HCPCS: 82365; 52317; J2250; J1100; J0690; J2405; J2003; J3010; J2704

== ENCOUNTER 2025-02-10 17:53 | Emergency (ER) | payer MEDICARE ==
[2025-02-10 18:28] LABS: Basophils # (A) 0.04 10*3/uL (0.00-0.10); Basophils % (A) 0.3 %; Eosinophils # (A) 0.05 10*3/uL (0.04-0.35); Eosinophils % (A) 0.3 %; HCT 39.7 % (39.6-50.0); HGB 13.8 g/dL (13.0-17.0); Lymphocytes # (A) 0.76 10*3/uL (0.90-5.00); Lymphocytes % (A) 5.3 %; MCH 31.9 pg (27.0-32.0); MCHC 34.8 g/dL (32.0-37.0); MCV 91.7 fL (80.0-97.0); Mean Platelet Volume 10.5 fL (9.5-12.2); Monocytes # (A) 1.23 10*3/uL (0.20-1.00); Monocytes % (A) 8.6 %; Neutrophils # (A) 12.17 10*3/uL (1.80-7.70); Platelet Count 119 10*3/uL (140-440); RBC 4.33 10*6/uL (4.40-5.60); RDW 14.4 % (11.5-14.5); WBC 14.32 10*3/uL (4.50-10.00)
[2025-02-10 18:34] LABS: ALT 60 U/L (4-49); AST 68 U/L (17-59); African American GFR (CKD) 74 (>60 ml/min/1.73 sqM); Albumin 3.6 g/dL (3.5-5.0); Alkaline Phosphatase 112 U/L (38-126); Anion Gap 10 mmol/L; Blood Urea Nitrogen 20 mg/dL (9-20); Carbon Dioxide 24 mmol/L (22-30); Chloride 100 mmol/L (98-107); Glucose 103 mg/dL (74-99); Non-African American GFR(CKD) 64 (>60 ml/min/1.73 sqM); Potassium 4.2 mmol/L (3.5-5.1); Sodium 134 mmol/L (137-145); Total Bilirubin 1.3 mg/dL (0.2-1.3); Total Protein 6.3 g/dL (6.3-8.2)
--- NOTE | 2025-02-10 18:40 | ED ---
Fall HPI - General Chief Complaint: Fall Stated Complaint: Fall Time Seen by Provider: 02/10/25 18:06 Source: patient, family, EMS, RN notes reviewed Mode of arrival: EMS - History of Present Illness Initial Comments: This is an 84-year-old male with history including CVA, dementia, AMI and cancer presenting via EMS for fall occurring earlier today. Patient states his "legs gave out", falling on to the soft floor. Fall was unwitnessed. Patient is currently taking Eliquis. Also notes that he was choking during breakfast this morning with subsequent resolution. Endorses decreased appetite. Endorses abrasion/contusion to right lateral ribs. Denies loss of consciousness, headache, neck pain, altered mental status. 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 Witnessed: no Place Fall Occurred: home Loss of Consciousness: unsure Prolonged Down Time?: unclear Location: chest Associated Symptoms: denies - Related Data Home Medications Medication Instructions Recorded Confirmed Esomeprazole Magnesium [NexIUM] 40 mg PO HS 02/11/14 12/11/24 Dorzolamide HCl/Pf [Dorzolamide 2% 1 drop BOTH EYES BID 12/11/20 12/11/24 Eye Drop] Fosinopril Sodium [Monopril] 20 mg PO QAM 12/11/20 12/11/24 Sertraline [Zoloft] 200 mg PO QAM 12/11/20 12/11/24 Timolol [Betimol 0.5% Ophth Soln] 1 drop BOTH EYES BID 12/11/20 12/11/24 Latanoprost [Xalatan 0.005%] 1 drop BOTH EYES HS 09/15/21 12/11/24 Atorvastatin [Lipitor] 40 mg PO HS 05/03/23 12/11/24 Donepezil [Aricept] 10 mg PO DAILY 05/03/23 12/11/24 Metoprolol Tartrate [Lopressor] 25 mg PO BID 08/10/23 12/11/24 Tamsulosin [Flomax] 0.4 mg PO 08/10/23 12/11/24 Alendronate Sodium 70 mg PO MO 12/06/24 12/11/24 Fluticasone Nasal [place] [Flonase 1 spray NASAL HS 12/06/24 12/11/24 Nasal [place]] Memantine HCl 10 mg PO BID 12/06/24 12/11/24 Multivitamins, Thera [Multivitamin 1 tab PO DAILY 12/06/24 12/11/24 (formulary)] Spironolactone 25 mg PO HS 12/06/24 12/11/24 Vitamin C (Unknown Dose) 1 tab PO DAILY 12/06/24 12/11/24 Vitamin D3 (Unknown Dose) 1 tab PO DAILY 12/06/24 12/11/24 levETIRAcetam 500 mg PO BID 12/06/24 12/11/24 Previous Rx's Medication Instructions Recorded Apixaban [Eliquis] 2.5 mg PO BID tablet 12/15/20 Cephalexin [Keflex] 500 mg PO Q8HR #9 cap 12/11/24 Allergies Allergy/AdvReac Type Severity Reaction Status Date / Time brexpiprazole [From Rexulti] AdvReac Mental Verified 12/11/24 07:45 problems Review of Systems ROS Statement: Those systems with pertinent positive or pertinent negative responses have been documented in the HPI. ROS Other: All systems not noted in ROS Statement are negative. 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 HX OF TIA/SEIZURES X2 LAST IN 2022. 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 Last Myocardial Infarction Date:: 2020 History of Any Multi-Drug Resistant Organisms: None Reported Past Surgical History: Adenoidectomy, Back Surgery, Joint Replacement, Orthopedic Surgery, Tonsillectomy Additional Past Surgical History / Comment(s): LITHOTRIPSY, BACK SURGERY X2(1987 AND 1997), BILATERAL REVERSE SHOULDER REPLACEMENTS. Past Anesthesia/Blood Transfusion Reactions: No Reported Reaction Past Psychological History: Depression Smoking Status: Former smoker - Past Family History Mother Family Medical History: Cancer Brother(s) Family Medical History: Cancer Additional Family Medical History / Comment(s): 2 brothers had cancer. General Exam Limitations: no limitations, altered mental status General appearance: alert, in no apparent distress Head exam: Present: atraumatic (No obvious abrasion, open wound, contusion, hematoma, depression), normocephalic, normal inspection Eye exam: Present: normal appearance, PERRL, EOMI, other (Negative raccoon eyes). Absent: scleral icterus, conjunctival injection, periorbital swelling Pupils: Present: normal accommodation ENT exam: Present: normal exam, normal oropharynx, mucous membranes moist, TM's normal bilaterally (Negative hemotympanum), normal external ear exam (Negative blood/CSF leakage), other (Negative Stearns sign) Neck exam: Present: normal inspection. Absent: tenderness, meningismus, lymphadenopathy Respiratory exam: Present: normal lung sounds bilaterally, other (2 cm circular abrasion noted to right anterior axillary chest wall). Absent: respiratory distress, wheezes, rales, rhonchi, stridor, chest wall tenderness, accessory muscle use, decreased breath sounds, prolonged expiratory Cardiovascular Exam: Present: regular rate, normal rhythm, normal heart sounds. Absent: systolic murmur, diastolic murmur, rubs, gallop, clicks GI/Abdominal exam: Present: soft, normal bowel sounds. Absent: distended, tenderness, guarding, rebound, rigid Extremities exam: Present: normal inspection, full ROM, normal capillary refill, other (Bilateral upper and lower extremity distal neurovascular and motor function intact.). Absent: tenderness, pedal edema, joint swelling, calf tenderness Back exam: Present: normal inspection. Absent: vertebral tenderness Neurological exam: Present: alert, altered (A&O x 2. states patient is at baseline), CN II-XII intact, other ([place] stroke test unremarkable) Psychiatric exam: Present: normal affect, normal mood Skin exam: Present: warm, dry, intact, normal color. Absent: rash Course Vital Signs 02/10/25 02/10/25 02/10/25 17:56 18:02 21:37 Temperature 97.6 F 98.9 F Pulse Rate 66 82 66 Respiratory 16 16 18 Rate Blood Pressure 143/82 138/60 102/55 O2 Sat by Pulse 95 94 L 96 Oximetry Medical Decision Making - Medical Decision Making Was pt. sent in by a medical professional or institution (, [place], [employer], urgent care, hospital, or jail...) When possible be specific @ -No Did you speak to anyone other than the patient for history (EMS, parent, family, police, friend...)? What history was obtained from this source @ - provided entirety of HPI Did you review nursing and triage notes (agree or disagree)? Why? @ -I reviewed and agree with nursing and triage notes Were old charts reviewed (outside hosp., previous admission, EMS record, old EKG, old radiological studies, urgent care reports/EKG's, jail records)? Report findings @ -No old charts were reviewed Differential Diagnosis (chest pain, altered mental status, abdominal pain women, abdominal pain men, vaginal bleeding, weakness, fever, dyspnea, syncope, headache, dizziness, GI bleed, back pain, seizure, CVA, palpatations, mental health, musculoskeletal)? @ -Differential Musculoskeletal Muscular strain, contusion, ligament sprain, fracture, arthritis, septic arthritis, bursitis, cellulitis, muscle spasm, nerve compression, DVT, arterial occlusion, herpes zoster, electrolyte abnormality, tumor.... This is not meant to be in all inclusive list EKG interpreted by me (3pts min.). @ -Sinus rhythm with sinus arrhythmia and QT prolongation. No ST deviation or T wave inversion. Ventricular rate 68 bpm, LUIS MIGUEL 191 ms, QRS 102 ms, QTc 461 ms. X-rays interpreted by me (1pt min.). @ -None done CT interpreted by me (1pt min.). @ -Head/cervical spine CT shows no acute fracture/dislocation of cervical spine or intracranial hemorrhage, mass effect or midline shift. Chest/abdomen/pelvic CT shows no evidence of traumatic injury to the chest, abdomen or pelvis. U/S interpreted by me (1pt. min.). @ -None done What testing was considered but not performed or refused? (CT, X-rays, U/S, labs)? Why? @ -None What meds were considered but not given or refused? Why? @ -None Did you discuss the management of the patient with other professionals (professionals i.e. , PA, [employer], lab, RT, psych nurse, social work instructor, citizenship teacher, teacher, department of natural resources officer, watch caser)? Give summary @ -No Was smoking cessation discussed for >3mins.? @ -No Was critical care preformed (if so, how long)? @ -No Were there social determinants of health that impacted care today? How? (Homelessness, low income, unemployed, alcoholism, drug addiction, tra nsportation, low edu. Level, literacy, decrease access to med. care, long term, rehab)? @ -No Was there de-escalation of care discussed even if they declined (Discuss DNR or withdrawal of care, Hospice)? DNR status @ -No What co-morbidities impacted this encounter? (DM, HTN, Smoking, COPD, CAD, Cancer, CVA, ARF, Chemo, Hep., AIDS, mental health diagnosis, sleep apnea, morbid obesity)? @ -Dementia Was patient admitted / discharged? Hospital course, mention meds given and route, prescriptions, significant lab abnormalities, going to OR and other pertinent info. @ -Code coag called. Lab work notable for WBC 14.32, mildly elevated transaminase. Troponin and creatine kinase WNL. Head/cervical spine CT shows no acute fracture/dislocation of cervical spine or intracranial hemorrhage, mass effect or midline shift. Chest/abdomen/pelvic CT shows no evidence of traumatic injury to the chest, abdomen or pelvis. Advised follow-up with PCP in the next 24-48 hours for ongoing evaluation/management. Return to ER if experiencing worsening headache, dizziness, vision changes, altered mental status, altered level of consciousness, nausea/vomiting. Discussed patient with Dr. Vasquez. Undiagnosed new problem with uncertain prognosis? @ -No Drug Therapy requiring intensive monitoring for toxicity (Heparin, Nitro, Insulin, Cardizem)? @ -No Were any procedures done? @ -No Diagnosis/symptom? @ -Fall without loss of consciousness Acute, or Chronic, or Acute on Chronic? @ -Acute Uncomplicated (without systemic symptoms) or Complicated (systemic symptoms)? @ -Uncomplicated Side effects of treatment? @ -No Exacerbation, Progression, or Severe Exacerbation? @ -No Poses a threat to life or bodily function? How? (Chest pain, [place], [place], pneumonia, PE, COPD, DKA, ARF, appy, cholecystitis, CVA, Diverticulitis, Homicidal, Suicidal, threat to staff... and all critical care pts) @ -No - Lab Data Result diagrams: 02/10/25 18:22 02/10/25 18:22 Lab Results 02/10/25 02/10/25 02/10/25 Range/Units 18:21 18:22 18:22 WBC 14.32 H (4.50-10.00) 10*3/uL RBC 4.33 L (4.40-5.60) 10*6/uL Hgb 13.8 (13.0-17.0) g/dL Hct 39.7 (39.6-50.0) % MCV 91.7 (80.0-97.0) fL MCH 31.9 (27.0-32.0) pg MCHC 34.8 (32.0-37.0) g/dL Plt Count 119 L (140-440) 10*3/uL MPV 10.5 (9.5-12.2) fL Immature Gran % (Auto) 0.5 % Neutrophils % 85.0 % Lymphocytes % 5.3 % Monocytes % 8.6 % Eosinophils % 0.3 % Basophils % 0.3 % Immature Gran # 0.07 H (0.00-0.04) 10*3/uL Neutrophils # 12.17 H (1.80-7.70) 10*3/uL Lymphocytes # 0.76 L (0.90-5.00) 10*3/uL Monocytes # 1.23 H (0.20-1.00) 10*3/uL Eosinophils # 0.05 (0.04-0.35) 10*3/uL Basophils # 0.04 (0.00-0.10) 10*3/uL PT 12.3 (10.0-12.5) sec INR 1.1 (<1.2) APTT 23.2 (22.0-30.0) sec Sodium 134 L (137-145) mmol/L Potassium 4.2 (3.5-5.1) mmol/L Chloride 100 (98-107) mmol/L Carbon Dioxide 24 (22-30) mmol/L Anion Gap 10 mmol/L BUN 20 (9-20) mg/dL Creatinine 1.06 (0.66-1.25) mg/dL Est GFR (CKD-EPI)AfAm 74 (>60 ml/min/1.73 sqM) Est GFR (CKD-EPI)NonAf 64 (>60 ml/min/1.73 sqM) Glucose 103 H (74-99) mg/dL Calcium 9.0 (8.4-10.2) mg/dL Total Bilirubin 1.3 (0.2-1.3) mg/dL AST 68 H (17-59) U/L ALT 60 H (4-49) U/L Alkaline Phosphatase 112 (38-126) U/L Total Creatine Kinase (30-223) u/L CK-MM (CK-3) (96.7-100.0) % CK-MB (CK-2) (0.0-3.3) % CK-BB (CK-1) (0.0) % Troponin I (0.000-0.034) ng/mL Total Protein 6.3 (6.3-8.2) g/dL Albumin 3.6 (3.5-5.0) g/dL 02/10/25 02/10/25 Range/Units 18:22 19:40 WBC (4.50-10.00) 10*3/uL RBC (4.40-5.60) 10*6/uL Hgb (13.0-17.0) g/dL Hct (39.6-50.0) % MCV (80.0-97.0) fL MCH (27.0-32.0) pg MCHC (32.0-37.0) g/dL Plt Count (140-440) 10*3/uL MPV (9.5-12.2) fL Immature Gran % (Auto) % Neutrophils % % Lymphocytes % % Monocytes % % Eosinophils % % Basophils % % Immature Gran # (0.00-0.04) 10*3/uL Neutrophils # (1.80-7.70) 10*3/uL Lymphocytes # (0.90-5.00) 10*3/uL Monocytes # (0.20-1.00) 10*3/uL Eosinophils # (0.04-0.35) 10*3/uL Basophils # (0.00-0.10) 10*3/uL PT (10.0-12.5) sec INR (<1.2) APTT (22.0-30.0) sec Sodium (137-145) mmol/L Potassium (3.5-5.1) mmol/L Chloride (98-107) mmol/L Carbon Dioxide (22-30) mmol/L Anion Gap mmol/L BUN (9-20) mg/dL Creatinine (0.66-1.25) mg/dL Est GFR (CKD-EPI)AfAm (>60 ml/min/1.73 sqM) Est GFR (CKD-EPI)NonAf (>60 ml/min/1.73 sqM) Glucose (74-99) mg/dL Calcium (8.4-10.2) mg/dL Total Bilirubin (0.2-1.3) mg/dL AST (17-59) U/L ALT (4-49) U/L Alkaline Phosphatase (38-126) U/L Total Creatine Kinase 71 (30-223) u/L CK-MM (CK-3) 100.0 (96.7-100.0) % CK-MB (CK-2) 0.0 (0.0-3.3) % CK-BB (CK-1) 0.0 (0.0) % Troponin I <0.012 (0.000-0.034) ng/mL Total Protein (6.3-8.2) g/dL Albumin (3.5-5.0) g/dL Disposition Clinical Impression: Fall Disposition: HOME SELF-CARE Condition: Good Instructions (If sedation given, give patient instructions): Fall Prevention for Older Adults (ED) Is patient prescribed a controlled substance at d/c from ED?: No Referrals: Antony Garcia MD [Primary Care Provider] - 1-2 days Time of Disposition: 21:04
[2025-02-10 18:46] LABS: INR 1.1 (<1.2); Partial Thromboplastin Time 23.2 sec (22.0-30.0); Prothrombin Time 12.3 sec (10.0-12.5)
--- NOTE | 2025-02-10 18:53 | CT ---
EXAMINATION TYPE: CT brain cspine wo con DATE OF EXAM: 02/10/2025 COMPARISON: 01/17/2024 CLINICAL INDICATION: Male, 84 years old with history of Unwitnessed fall, Eliquis use; PHH, unwitness ed fall, pt on Eliquis TECHNIQUE: CT scan of the head and cervical spine are performed without contrast. CT DLP: 1536.[address] CTDI: mGy Automated exposure control for dose reduction was used. FINDINGS: There is no acute intracranial hemorrhage, mass effect, or midline shift identified. The ventricles and sulci are within moderately enlarged. The globes are intact and the visualized sinuses are clear. Cervical spine is visualized in its entirety from C1 through upper thoracic levels and demonstrates s atisfactory alignment without evidence of acute fracture or dislocation. Prevertebral soft tissue ap pears within normal limits. The C1-C2 articulation is unremarkable. No evidence of fracture. Retroli sthesis of C3 on C4 chronic in nature. IMPRESSION: 1. There is no acute fracture or dislocation evident in the cervical spine. 2. No acute intracranial hemorrhage, mass effect, or midline shift is seen. [facility], , 02/10/2025 6:51 PM
--- NOTE | 2025-02-10 19:05 | CT ---
EXAMINATION TYPE: CT ChestAbdPelvis wo con DATE OF EXAM: 02/10/2025 6:51 PM COMPARISON: None. CLINICAL INDICATION: Male, 84 years old with history of Unwitnessed fall, Eliquis use, dementia, unwi tnessed fall, pt on Eliquis dlp 1536.7, TECHNIQUE: Axial imaging was performed with sagittal coronal reformats. 3D reconstruction performed o n a separate workstation. IV CONTRAST: , patient injected with mL of . (None if empty) CT DLP: 656.3 mGycm, Automated exposure control for dose reduction was used. FINDINGS: CHEST LUNGS: There is no evidence for pneumothorax. Patchy infiltrate noted in the region of the right uppe r lobe extending into the right middle lobe suspicious for pneumonia. The left lung is clear. MEDIASTINUM: Thoracic aorta is of normal caliber without CT evidence to suggest traumatic induced ao rtic injury. No mediastinal fluid or blood. No pericardial fluid or cardia abnormality. HILAR STRUCTURES: No evidence for mass. No hilar adenopathy is appreciated. OTHER: No significant abnormality. OSSEOUS: No displaced osseous fractures identified. CT ABDOMEN AND PELVIS FINDINGS: LIVER/GB: No focal laceration, contusion or subcapsular hemorrhage. No calcified gallstones. No s pace occupying hepatic lesion. Biliary tree is of normal caliber. PANCREAS: No evidence for transection. No inflammation. No distinct mass. SPLEEN: No focal laceration, contusion or subcapsular hemorrhage. ADRENALS: No hemorrhage. No nodule. No thickening. KIDNEYS/BLADDER: No focal laceration, contusion or subcapsular hemorrhage. No hydronephrosis. No n ephrolithiasis. No disctinct renal mass. BOWEL: Bowel is intact. No evidence for pneumoperitoneum. GENITAL ORGANS: No gross abnormality. LYMPH NODES: No greater than 1cm abdominal or pelvic lymph nodes areappreciated. AORTA: No traumatic aortic injury visualized. OSSEOUS STRUCTURES: No displaced fracture seen. OTHER: No evidence for hemoperitoneum. IMPRESSION: 1. No evidence for traumatic injury to the chest. 2. No evidence for traumatic injury to the abdomen or pelvis. [facility], , 02/10/2025 7:03 PM
[2025-02-10] MEDS: levETIRAcetam 500 MG TAB PO STA (20:59)
[2025-02-10] MEDS: levETIRAcetam 500 MG TAB PO SCH (21:01)
[2025-02-10 21:38] VITALS: BP 102/55; PULSE 66; RESP 18; TEMP 98.9
== END 2025-02-10 21:38 | disposition home or self-care (01) ==
LOC: EC 17:53
DX: S20.211A Contusion of right front wall of thorax, initial encounter (principal); F03.90 Unspecified dementia, unspecified severity, without behavioral disturbance, psychotic disturbance, mood disturbance, and anxiety; Z86.73 Personal history of transient ischemic attack (TIA), and cerebral infarction without residual deficits; Z87.891 Personal history of nicotine dependence; Z88.8 Allergy status to other drugs, medicaments and biological substances; W18.30XA Fall on same level, unspecified, initial encounter
CPT/HCPCS: 36415; 70450; 71250; 72125; 74176; 80053; 82550; 82552; 84484; 85025; 85610; 85730; 93005; 99284